=== PATIENT | male | born 1945 | race Caucasian/White ===

== ENCOUNTER → 2017-11-25 | Outpatient (CLI) | payer MEDICARE, OTHER ==
[2017-11-25 10:29] LABS: HCT 43.6 % (39.0-53.0); HGB 13.6 gm/dL (13.0-17.5); MCH 30.3 pg (25.0-35.0); MCHC 31.1 g/dL (31.0-37.0); MCV 97.5 fL (80.0-100.0); Mean Platelet Volume 6.9; Platelet Count 235 k/uL (150-450); RBC 4.48 m/uL (4.30-5.90); RDW 14.8 % (11.5-15.5); WBC 7.3 k/uL (3.8-10.6)
[2017-11-25 10:42] LABS: Appearance,Urine Clear (Clear); Bilirubin,Urine Negative (Negative); Blood,Urine Negative (Negative); Color,Urine Yellow; Glucose,Urine (UA) Negative (Negative); Ketones,Urine Negative (Negative); Leukocyte Esterase,Urine Negative (Negative); Nitrite,Urine Negative (Negative); PH, Urine 6.5 (5.0-8.0); Protein,Urine Negative (Negative); Specific Gravity,Urine 1.008 (1.001-1.035); Urobilinogen,Urine <2.0 mg/dL (<2.0)
[2017-11-25 10:44] LABS: INR 1.1 (<1.2); Partial Thromboplastin Time 23.7 sec (22.0-30.0); Prothrombin Time 10.6 sec (9.0-12.0)
[2017-11-25 10:49] LABS: ALT 37 U/L (21-72); AST 26 U/L (17-59); Albumin 4.5 g/dL (3.5-5.0); Alkaline Phosphatase 81 U/L (38-126); Anion Gap 10 mmol/L; Blood Urea Nitrogen 17 mg/dL (9-20); Calcium 9.8 mg/dL (8.4-10.2); Carbon Dioxide 27 mmol/L (22-30); Chloride 101 mmol/L (98-107); Glucose 91 mg/dL (74-99); Potassium 4.9 mmol/L (3.5-5.1); Sodium 138 mmol/L (137-145); Total Bilirubin 0.5 mg/dL (0.2-1.3); Total Protein 7.2 g/dL (6.3-8.2)
== END | disposition home or self-care (01) ==
LOC: LABPAT 09:45
PROVIDERS: ATTEND Orthopaedic Surgery
DX: Z01.812 Encounter for preprocedural laboratory examination (principal)
CPT/HCPCS: 36415; 80053; 81003; 85027; 85610; 85730; 87070

== ENCOUNTER 2017-12-16 06:12 | Inpatient (IN) | payer MEDICARE, OTHER ==
[2017-12-10 12:35] VITALS: BMI 27.9
[~2017-12-16 06:12] MED LIST: ACETAMINOPHEN TAB 500 MG TAB PO ONE; DEXAMETHASONE SOD PHOSPHATE 10 MG/ML 1 ML VIAL IV ONE; HYDROmorphone 0.5 MG/0.5 ML SYRINGE IVP PRN; LACTATED RINGERS 1,000 ML IV SCH; LIDOCAINE 1% 20 ML VIAL (10MG/ML) FOR IV START INTRADERMA PRN; MELOXICAM 7.5 MG TAB PO ONE; MIDAZOLAM 2 MG/2 ML VIAL IV PRN; ONDANSETRON 4 MG/2 ML VIAL IVP ONE; SCOPOLAMINE 1.5MG/72HR PATCH TRANSDERM ONE; TRANEXAMIC ACID 1,000 MG in SODIUM CHLORIDE 0.9% 50 ML IVPB ONE; ceFAZolin 2 GM in SODIUM CHLORIDE 0.9% 100 ML IVPB ONE; ceFAZolin IN SWFI 2 GM/20 ML SYRINGE IVP ONE
[2017-12-16] MEDS ORDERED: ROPIVACAINE 246.25 MG, EPINEPHrine 0.5 MG, KETOROLAC 30 MG, cloNIDine HCL/PF 80 MCG, WA... MISCELLANE ONE ×5 (06:24)
[2017-12-16] MEDS ORDERED: TRANEXAMIC ACID 1,000 MG/10 ML VIAL ONE (07:22)
[2017-12-16] MEDS ORDERED: diphenhydrAMINE 50 MG/ML 1 ML VIAL ONE (07:22)
[2017-12-16] MEDS ORDERED: ceFAZolin 1,000 MG in SODIUM CHLORIDE 0.9% 1,000 ML IRRIGATION ONE ×4 (07:22)
[2017-12-16] MEDS ORDERED: fentaNYL (PF) 50 MCG/ML 2 ML AMP ONE (07:22)
[2017-12-16] MEDS ORDERED: SODIUM CHLORIDE 0.9% 100 ML BAG ONE (07:22)
[2017-12-16] MEDS ORDERED: MIDAZOLAM 2 MG/2 ML VIAL ONE (07:22)
[2017-12-16] MEDS ORDERED: ROPIVACAINE 1,100 MG, SODIUM CHLORIDE 0.9% 330 ML MISCELLANE PRN ×2 (08:00)
--- NOTE | 2017-12-16 08:02 | P.ONQ ---
Anesthesiology Proc Note - PNB - Peripheral Nerve Block Performed Left Adductor Canal Indication: Acute Post-Operative Pain, Requested by physician (Dr Salvador Gonzalez ) Sedation Type: Sedate with meaningful contact maintained Preparation: Sterile Dressing Position: Supine Catheter: Indwelling Needle Types: Other (see comment) (Renee) Needle Size: 100mm (4") Needle Gauge: 18 Technique: Ultrasound Injectate: 0.5% Ropivacaine (see comment for volume) (20cc) Blood Aspirated: No Pain Paresthesia on Injection Noted: No Resistance on Injection: Normal Events: Uneventful and Well Tolerated
[2017-12-16] MEDS ORDERED: LACTATED RINGERS 1,000 ML IV ONE (08:20)
--- NOTE | 2017-12-16 08:57 | P.OP ---
Date of Procedure: 12/16/17 Preoperative Diagnosis: Severe osteoarthritis left knee Postoperative Diagnosis: Severe osteoarthritis left knee Procedure(s) Performed: Left total knee arthroplasty Implants: Miller and Nephew Oxinium femoral component size 6, left Miller & Nephew Sarita II left nonporous tibial baseplate size 7 Miller & Nephew size 11 mm Legion XLPE dished articular insert, size 7-8 Miller & Nephew Sarita II resurfacing patellar component, 35 mm All components were cemented using Shital bone cement.. The articulation is Oxinium on polyethylene. Anesthesia: spinal Surgeon: Salvador Gonzalez Vice President Sales #1: Cynthia Tijerina Estimated Blood Loss (ml): 50 Pathology: other (Bone and cartilage) Condition: stable Disposition: PACU Indications for Procedure: After failure of conservative treatment we discussed the surgical and nonsurgical treatment options at length. Patient wishes to proceed with a total knee arthroplasty. Complications specific to this procedure were discussed at length, including but not limited to infection, bleeding, stiffness , and nerve injury. Patient is aware of all these complications and informed consent was obtained Operative Findings: The operative findings are consistent with severe osteoarthritis of the left knee Description of Procedure: Patient was seen in the preoperative area consent was reviewed and operative site was marked with a skin marker. An adductor canal pain catheter was placed by anesthesia in the preoperative area. Patient was then brought to the operating room and given preoperative antibiotics intravenously. A spinal anesthetic was administered by the anesthesia department. A tourniquet was placed on the upper thigh and the lower extremity was prepped and draped in usual sterile fashion. A gram of transexamic acid was given. A universal timeout was then performed which confirmed the patient's name, surgical site, ALLERGIES, and consent. The lower extremity was then exsanguinated and tourniquet was inflated to 250 mmHg. A standard and anterior midline approach to the knee was performed. The skin and subcutaneous tissue was dissected down to the patellar tendon. A medial parapatellar arthrotomy was then performed. The knee was then extended, the patellar was everted, and the knee was again flexed. Anterior horns of both menisci were excised, and a release was performed to the posterior medial aspect of the knee. On gross visual inspection, there was complete loss of articular cartilage in the medial and patellofemoral joint spaces. There was also significant cartilage damage in the lateral compartment. There were multiple periarticular osteophytes which were then removed with a Ronguer. The femoral canal was then opened with the appropriate drill, and the intramedullary femoral cutting guide was then placed and set for 4 of valgus. The distal femoral cutting block was then pinned in place, and the distal femur was then cut. The cutting block was then removed and the cut was checked for flatness. Next, the sizing guide was then placed and set for 3 external rotation based off of the epicondylar axis and Whitesides line. After the femur was sized, the appropriate 4-in-1 cutting block was then pinned in place. The anterior condyles were cut without notching. The posterior and chamfer cuts were performed while protecting the collateral ligaments. The cutting block was then removed, and the femoral canal was plugged with autologous bone. Attention was then directed to the tibia. The remaining ACL was removed with a Ronguer, and the tibia was then gently subluxed forward with a large bent knee retractor. Any remaining menisci was excised. The posterior lateral corner was cauterized in order to cauterize the lateral geniculate artery. The extra medullary tibial cutting guide was then placed, set for the appropriate rotation , slope, and depth of resection. The proximal tibia cutting guide was then pinned in place. Proximal tibia was then cut and sized. Next trials were then placed with the appropriate-sized insert. The knee was able to fully extend and flex to 130 and was stable throughout all range of motion. The knee was then extended, patella everted. Patella was then measured, and then using an osteotomy guide, the patella was cut at the appropriate level. The patella was then measured and drilled and the patella trial was then placed. The knee was then taken through range of motion with the patella trial and the patella tracked normally. The knee was then extended patella trial was then removed and the patella was everted. Knee was then flexed and lug holes were drilled through the femoral trial and the femoral trial was then removed. The tibial was then exposed, and the tibial broach guide was then pinned in place after it was set for the appropriate rotation to allow for the most coverage without overhang. The tibia was then reamed and broached. The cut surfaces of bone were then irrigated with pulsatile lavage. The posterior structures were injected with the ropivacaine solution. The knee was also irrigated with Irrisept solution. The components were then opened, the cement was mixed, and the components were then cemented in place. The cement was allowed to harden with the knee in full extension. While the cement was hardening, the remaining soft tissues were then injected with a ropivacaine solution, which consisted of 246.25 mg of ropivacaine, 0.5 mg of epinephrine, 30 mg of Toradol, 80 g of clonidine, and 48.45 mL of sterile water, for a total of 100 mL of fluid injected. After the cemented hardened. The tourniquet was released, and hemostasis was obtained. A second gram of transexamic acid was given. The knee was again irrigated. The knee was again taken through range of motion and found to be stable throughout all range of motion of 0-130 , and the patella tracked normally. The fascia was then closed with #2 strata fix suture. The subcutaneous tissue was closed with 3-0 Vicryl and 3-0 strata fix. Dermabond glue was used for the skin and placed with the knee in flexion. The patient was placed in a sterile silver dressing. Patient was then transferred to recovery room in stable condition. The department assistant REEMA Mullins was required due the complexity surgery and the need for a skilled surgical endoscopist. She assisted in positioning, draping, retraction, and closure of the wound.
[2017-12-16] MEDS ORDERED: NALOXONE 0.4 MG/ML 1 ML VIAL IV PRN (09:17)
[2017-12-16] MEDS ORDERED: hydrOXYzine PAMOATE 25 MG CAP PO PRN (09:17)
[2017-12-16] MEDS ORDERED: DIAZEPAM 5 MG TAB PO PRN ×2 (09:17)
[2017-12-16] MEDS ORDERED: BISACODYL 10 MG SUPP RECTAL PRN (09:17)
[2017-12-16] MEDS ORDERED: MAGNESIUM HYDROXIDE 2,400 MG/10 ML CUP PO PRN (09:17)
[2017-12-16] MEDS ORDERED: HYDROmorphone 2 MG/ML 1 ML SYRINGE IVP PRN ×4 (09:17)
[2017-12-16] MEDS ORDERED: NA PHOS,M-B/NA PHOS,DI-BA 133 ML ENEMA RECTAL PRN (09:17)
[2017-12-16] MEDS ORDERED: ONDANSETRON 4 MG/2 ML VIAL IVP PRN (09:17)
[2017-12-16] MEDS ORDERED: HYDROcodone/APAP 5-325MG 1 EACH TAB PO PRN (09:17)
--- NOTE | 2017-12-16 10:15 | XR ---
EXAMINATION TYPE: XR knee limited LT DATE OF EXAM: 12/16/2017 CLINICAL HISTORY: Left knee pain and arthritis status post total knee replacement. TECHNIQUE: Portable AP and crosstable lateral views of the left knee are obtained immediately postop eratively. COMPARISON: None FINDINGS: Metallic hardware from total left knee arthroplasty is seen and appears satisfactory in al ignment and position. There is evidence of recent surgery with diffuse subcutaneous gas and soft tis kitty swelling noted. IMPRESSION: METALLIC HARDWARE FROM TOTAL LEFT KNEE ARTHROPLASTY IS SATISFACTORY IN ALIGNMENT.
[2017-12-16] MEDS: ceFAZolin IN SWFI 2 GM/20 ML SYRINGE IVP SCH ×2 (15:14→23:19)
[2017-12-16] MEDS: SODIUM CHLORIDE 0.9% 1,000 ML IV SCH ×2 (15:47→16:44)
[2017-12-16] MEDS: HYDROcodone/APAP 5-325MG 1 EACH TAB PO PRN ×2 (17:01→23:18)
[2017-12-16] MEDS ORDERED: SENNOSIDES-DOCUSATE SODIUM 1 EACH TAB PO SCH (21:00)
[2017-12-16] MEDS: ASPIRIN 325 MG TAB PO SCH (23:18)
--- NOTE | 2017-12-17 06:24 | CONS ---
CONSULTATION REASON FOR CONSULTATION: Advice regarding hypertension and multiple other medical issues requested by Dr. Gonzalez. HISTORY OF PRESENT ILLNESS: This 72-year-old gentleman with the past medical history of multiple medical issues such as history of hypertension, hyperlipidemia, history of DJD, rheumatoid arthritis being followed by Dr. Inman in the outpatient setting underwent left total knee arthroplasty by Dr. Gonzalez. The patient tolerated the procedure well. There is no history of chest pain. No history of palpitations. No history of headache, loss of consciousness, nausea, vomiting, diarrhea, fever, rigors or chills at this time. PAST MEDICAL HISTORY: History of hypertension, hyperlipidemia, history of DJD, history rheumatoid arthritis, hearing defects. MEDICATIONS: Medications prior to admission include home medications are: 1. Dugger-3 fatty acids 1 p.o. daily. 2. Methotrexate 3 tablets p.o. Saturday. 3. Cozaar 25 mg p.o. q.a.m. 4. Folic acid 1 mg daily. 5. Lipitor 40 mg p.o. daily. ALLERGIES: None. FAMILY HISTORY: No history of heart disease or strokes in the family. SOCIAL HISTORY: No history of smoking. No history of alcohol intake. REVIEW OF SYSTEMS: ENT: No diminished vision, diminished hearing. CARDIOVASCULAR: No angina. RESPIRATORY: As mentioned earlier. GI: As mentioned earlier. : No dysuria. NERVOUS SYSTEM: No numbness or weakness. ALLERGY/IMMUNOLOGY: No history of asthma. MUSCULOSKELETAL: As mentioned earlier. HEMATOLOGY/ONCOLOGY: No history of anemia. ENDOCRINE: No history of diabetes or hypothyroidism. CONSTITUTIONAL: As mentioned earlier. DERMATOLOGY: Negative. RHEUMATOLOGY: As mentioned earlier. PSYCHIATRY: As mentioned earlier. PHYSICAL EXAMINATION: The patient is alert and oriented x3. Pulse is 56, blood pressure 111/64, respirations 16, temperature 97 degrees, pulse ox 96% on room. HEENT: Conjunctivae normal. Oral mucosa moist. Neck is no jugular venous distention. No carotid bruit. No lymph node enlargement. CARDIOVASCULAR: S1 and S2 muffled. RESPIRATORY: Diminished breath sounds at the bases. No rhonchi, no crackles. ABDOMEN: Soft, nontender. No mass palpable. LEGS: Status post left total knee arthroplasty. NERVOUS SYSTEM: Higher function as mentioned earlier. Moves all 4 limbs. No focal motor or sensory deficits. LYMPHATICS: No lymphadenopathy of the neck, axillae or groin. SKIN: No ulcer, rash or bleeding. LABS: Labs are awaited at this time. The previous labs CBC, coags, chemistry, all within normal limit. LDL was 123. ASSESSMENT: 1. Status post left total knee arthroplasty. 2. Hypertension. 3. Hyperlipidemia. 4. History of degenerative joint disease. 5. History of rheumatoid arthritis. History of hearing defect. RECOMMENDATIONS AND DISCUSSION: In this 72-year-old gentleman who presented with multiple complex medical issues, will monitor the patient closely. Continue the current medication. Continue symptomatic treatment. I recommend to resume the home medications and also hold the methotrexate for now, could be restarted later. Otherwise I would also recommend DVT prophylaxis, incentive spirometry. Monitor blood pressure closely. We will follow the patient closely with you. Thank you Dr. Gonzalez for letting us participate in the care of this patient. MMODL / IJN: [id number] /
--- NOTE | 2017-12-17 06:53 | P.PN ---
Progress Note - Text Progress Note Date: 12/17/17 . Postoperative day # 1 status post total knee arthroplasty, under spinal anesthesia, and adductor canal catheter placed for postoperative analgesia, currently at ropivacaine 0.2% 8 mL per hour and continuous infusion, visual analogue scale is 2/10, patient using oral pain medication for breakthrough pain. Assessment and plan= Acute postoperative pain, adductor canal catheter for pain control, pain is well controlled we'll continue the same management.
[2017-12-17 07:38] LABS: Anion Gap 10 mmol/L; Blood Urea Nitrogen 17 mg/dL (9-20); Calcium 9.1 mg/dL (8.4-10.2); Carbon Dioxide 21 mmol/L (22-30); Chloride 104 mmol/L (98-107); Glucose 92 mg/dL (74-99); Potassium 4.4 mmol/L (3.5-5.1); Sodium 135 mmol/L (137-145)
[2017-12-17 07:58] LABS: Basophils % (A) 0 %; Eosinophils % (A) 0 %; HCT 35.4 % (39.0-53.0); HGB 11.6 gm/dL (13.0-17.5); Lymphocytes # (A) 1.5 k/uL (1.0-4.8); Lymphocytes % (A) 13 %; MCH 31.8 pg (25.0-35.0); MCHC 32.8 g/dL (31.0-37.0); Mean Platelet Volume 6.7; Monocytes # (A) 0.6 k/uL (0-1.0); Monocytes % (A) 5 %; Neutrophils # (A) 9.3 k/uL (1.3-7.7); Neutrophils % (A) 80 %; Platelet Count 175 k/uL (150-450); RBC 3.65 m/uL (4.30-5.90); RDW 12.9 % (11.5-15.5); WBC 11.6 k/uL (3.8-10.6)
[2017-12-17 08:05] VITALS: BP 129/76; PULSE 63; RESP 15; TEMP 98.4
[2017-12-17] MEDS: ASPIRIN 325 MG TAB PO SCH (08:28)
[2017-12-17] MEDS ORDERED: LOSARTAN 25 MG TAB PO SCH (09:00)
[2017-12-17] MEDS ORDERED: LISINOPRIL 10 MG TAB PO SCH (09:00)
[2017-12-17] MEDS ORDERED: MELOXICAM 7.5 MG TAB PO SCH (09:00)
[2017-12-17] MEDS ORDERED: ATORVASTATIN 40 MG TAB PO SCH (09:00)
[2017-12-17] MEDS: HYDROcodone/APAP 5-325MG 1 EACH TAB PO PRN (09:48)
--- NOTE | 2017-12-17 09:50 | P.DS ---
Providers Date of admission: 12/16/17 06:12 Expected date of discharge: 12/17/17 Attending physician: Salvador Gonzalez Consults: 12/16/17 09:17 Consult Physician Routine Consulting Provider: Freeman Ponce Consult Reason/Comments: medical management Do you want consulting provider notified?: Yes Primary care physician: Salvador Inman - Discharge Diagnosis(es) (1) Primary osteoarthritis of left knee Current Visit: Yes Status: Acute (2) S/P total knee arthroplasty Current Visit: Yes Status: Acute Hospital Course: This is a 72-year-old male with known history of degenerative arthritis of the left knee. The patient presents for evaluation. After discussion and consideration patient elects to proceed with total knee arthroplasty. The patient is seen preoperatively by Dr. Gonzalez and cleared for surgery. Patient is admitted to [facility] on 12/16/2017 for total knee arthroplasty. The procedures performed without complication or sequelae. The patient is doing well postoperatively. Labs and vital signs are stable on day of discharge. On day of discharge patient's knee incision is healing well. There is minimal erythema. There is no drainage noted at this time. There is minimal soft tissue swelling to the knee. Patient has full foot and ankle motion without difficulty or pain. Neurovascular status to the left lower extremity is intact. Patient is discharged home in good condition. Please see med rec for accurate list of home medications. Plan - Discharge Summary Discharge Rx Participant: No New Discharge Prescriptions: New Aspirin 325 mg PO BID #60 tab HYDROcodone/APAP 5-325MG [[place] 5-325] 1 - 2 tab PO Q4-6H PRN #90 tab PRN Reason: Pain Sennosides [Senokot] 1 tab PO BID #60 tablet No Action Folic Acid 1 mg PO DAILY Methotrexate Sodium [Methotrexate] 3 tab PO WE Atorvastatin [Lipitor] 40 mg PO DAILY [place]-3 Fatty Acids/Fish Oil [Fish Oil 1,000 mg Softgel] 1 cap PO DAILY Losartan [Cozaar] 25 mg PO QAM Discharge Medication List Folic Acid 1 mg PO DAILY 03/15/14 [History] Methotrexate Sodium [Methotrexate] 3 tab PO WE 03/15/14 [History] Atorvastatin [Lipitor] 40 mg PO DAILY 12/10/17 [History] Losartan [Cozaar] 25 mg PO QAM 12/10/17 [History] [place]-3 Fatty Acids/Fish Oil [Fish Oil 1,000 mg Softgel] 1 cap PO DAILY [History] Aspirin 325 mg PO BID #60 tab 12/17/17 [Rx] HYDROcodone/APAP 5-325MG [[place] 5-325] 1 - 2 tab PO Q4-6H PRN #90 tab 12/17/17 [ Rx] Sennosides [Senokot] 1 tab PO BID #60 tablet 12/17/17 [Rx] Follow up Appointment(s)/Referral(s): Salvador Gonzalez DO [Doctor of Osteopathic Medicine] - 2 Weeks Ambulatory/Diagnostic Orders: Continuous Passive Motion (CPM) Machine [DME.AMB1] Time Frame: 3 Weeks, Location : Determined By Patient Activity/Diet/Wound Care/Special Instructions: Weightbearing as tolerated with a walker CPM 5-6h daily Leave dressing intact. May be removed by home care nurse in 7 days, 12/23/2017. May shower with dressing on. [facility] with questions or concerns [phone] Discharge Disposition: HOME WITH HOME HEALTH SERVICES
[2017-12-17 10:39] LABS: Appearance,Urine Clear (Clear); Bilirubin,Urine Negative (Negative); Blood,Urine Negative (Negative); Color,Urine Yellow; Glucose,Urine (UA) Negative (Negative); Ketones,Urine Negative (Negative); Leukocyte Esterase,Urine Negative (Negative); Nitrite,Urine Negative (Negative); PH, Urine 5.5 (5.0-8.0); Protein,Urine Negative (Negative); Specific Gravity,Urine 1.015 (1.001-1.035); Urobilinogen,Urine <2.0 mg/dL (<2.0)
[2017-12-17 11:32] LABS: Anisocytosis (M) Present
[2017-12-17] MEDS ORDERED: FOLIC ACID 1 MG TAB PO SCH (12:00)
--- NOTE | 2017-12-17 13:30 | PN ---
PROGRESS NOTE DATE OF SERVICE: 12/17/2017 This 72-year-old gentleman who was admitted after left total knee arthroplasty, improving significantly. No chest pain. No palpitations. No fever. PHYSICAL EXAM: On exam, alert and oriented x3. The pulse 63, blood pressure 129/76, respiration 15, temperature 98.4, pulse ox 95% on room air. HEENT: Conjunctivae normal. NECK: No jugular venous distention. CARDIOVASCULAR: S1 and S2 muffled. RESPIRATORY: Breath sounds diminished at the bases. A few scattered rhonchi and crackles. Abdomen is soft, nontender. LEGS: Status post surgery. NERVOUS SYSTEM: No focal deficits. LABS: WBC 11.6, hemoglobin 11.6. sodium 135. ASSESSMENT: 1. Status post left total knee arthroplasty. 2. Hypertension. 3. Hyperlipidemia. 4. History of degenerative joint disease. 5. History of rheumatoid arthritis. 6. Hearing defect. RECOMMENDATIONS AND DISCUSSION: Recommend to continue current medications, continue symptomatic treatment. Otherwise at this time monitor the patient closely. Otherwise resume the home medications. Closely follow with the primary physician in the outpatient setting. MMODL / IJN: [id number] /
== END 2017-12-17 13:20 | disposition home health service (06) | DRG 470 ==
LOC: 2ORMAIN 06:12 → 3SUR 09:10
PROVIDERS: ADMIT Orthopaedic Surgery; ATTEND Orthopaedic Surgery
PROC: 0SRD069 Replacement of Left Knee Joint with Oxidized Zirconium on Polyethylene Synthetic Substitute, Cemented, Open Approach (ICD-10-PCS; principal; 2017-12-16 07:30)
DX: M17.12 Unilateral primary osteoarthritis, left knee (principal); G62.9 Polyneuropathy, unspecified; M06.9 Rheumatoid arthritis, unspecified; G89.18 Other acute postprocedural pain; E78.2 Mixed hyperlipidemia; H91.90 Unspecified hearing loss, unspecified ear; I10 Essential (primary) hypertension; Z79.899 Other long term (current) drug therapy
CPT/HCPCS: 80048; 81003; 85025; 88300

== ENCOUNTER 2024-09-21 10:02 | Day surgery (SDC) | payer MEDICARE, BC ==
[2024-09-18 08:44] VITALS: BMI 29.0
[~2024-09-21 10:02] MED LIST changes: -ACETAMINOPHEN TAB 500 MG TAB PO ONE; +ALPRAZolam 0.25 MG TAB PO PRN; +ALPRAZolam 0.5 MG TAB PO PRN; +ATORVASTATIN 80 MG TAB PO STA; -DEXAMETHASONE SOD PHOSPHATE 10 MG/ML 1 ML VIAL IV ONE; +HEPARIN SODIUM,PORCINE (1 ML) 2,500 UNIT in SODIUM CHLORIDE 0.9% 250 ML IRRIGATION PRN; +HEPARIN SODIUM,PORCINE 10,000 UNIT in SODIUM CHLORIDE 0.9% 1,000 ML IRRIGATION PRN; -HYDROmorphone 0.5 MG/0.5 ML SYRINGE IVP PRN; -LACTATED RINGERS 1,000 ML IV SCH; -LIDOCAINE 1% 20 ML VIAL (10MG/ML) FOR IV START INTRADERMA PRN; -MELOXICAM 7.5 MG TAB PO ONE; -MIDAZOLAM 2 MG/2 ML VIAL IV PRN; +NITROGLYCERIN SL TABS 0.4 MG TAB SUBLINGUAL PRN; -ONDANSETRON 4 MG/2 ML VIAL IVP ONE; -SCOPOLAMINE 1.5MG/72HR PATCH TRANSDERM ONE; -TRANEXAMIC ACID 1,000 MG in SODIUM CHLORIDE 0.9% 50 ML IVPB ONE; -ceFAZolin 2 GM in SODIUM CHLORIDE 0.9% 100 ML IVPB ONE; -ceFAZolin IN SWFI 2 GM/20 ML SYRINGE IVP ONE
[2024-09-21 10:37] VITALS: RESP 16; TEMP 98.5
[2024-09-21] MEDS: SODIUM CHLORIDE 0.9% 1,000 ML IV ONE (10:37)
[2024-09-21] MEDS: SODIUM CHLORIDE 0.9% 1,000 ML in EMPTY BAG 1 BAG IV SCH (10:38)
[2024-09-21 11:09] LABS: Basophils % (A) 0 %; Eosinophils # (A) 0.1 k/uL (0-0.7); Eosinophils % (A) 1 %; HCT 40.7 % (39.0-53.0); HGB 13.6 gm/dL (13.0-17.5); Lymphocytes # (A) 5.3 k/uL (1.0-4.8); Lymphocytes % (A) 45 %; MCH 30.6 pg (25.0-35.0); MCHC 33.4 g/dL (31.0-37.0); MCV 91.6 fL (80.0-100.0); Mean Platelet Volume 8.9; Monocytes # (A) 0.4 k/uL (0-1.0); Monocytes % (A) 4 %; Neutrophils # (A) 5.4 k/uL (1.3-7.7); Neutrophils % (A) 46 %; Platelet Count 327 k/uL (150-450); RBC 4.44 m/uL (4.30-5.90); RDW 13.9 % (11.5-15.5); WBC 11.7 k/uL (3.8-10.6)
[2024-09-21] MEDS: ASPIRIN 325 MG TAB PO STA (11:21)
[2024-09-21 11:30] LABS: RBC Morphology Normal
[2024-09-21 11:33] LABS: African American GFR (CKD) 89 (>60 ml/min/1.73 sqM); Anion Gap 7 mmol/L; Blood Urea Nitrogen 19 mg/dL (9-20); Calcium 8.8 mg/dL (8.4-10.2); Carbon Dioxide 25 mmol/L (22-30); Chloride 99 mmol/L (98-107); Glucose 93 mg/dL (74-99); Non-African American GFR(CKD) 77 (>60 ml/min/1.73 sqM); Potassium 4.3 mmol/L (3.5-5.1); Sodium 131 mmol/L (137-145)
[2024-09-21] MEDS: HEPARIN SODIUM,PORCINE 10,000 UNIT in SODIUM CHLORIDE 0.9% 1,000 ML IRRIGATION ONE (12:40)
[2024-09-21] MEDS: HEPARIN SODIUM,PORCINE (1 ML) 2,500 UNIT in SODIUM CHLORIDE 0.9% 250 ML IRRIGATION ONE (12:40)
[2024-09-21] MEDS: MIDAZOLAM 2 MG/2 ML VIAL IVP ONE (12:51)
[2024-09-21] MEDS: fentaNYL (PF) 50 MCG/ML 2 ML AMP IVP ONE (12:52)
[2024-09-21] MEDS: LIDOCAINE 1% INJ 10MG/ML (20 ML MDV) SQ ONE (12:54)
[2024-09-21] MEDS: VERAPAMIL SYRINGE (5 MG/10 ML) INTRAARTER ONE (12:55)
[2024-09-21] MEDS: HEPARIN SODIUM 1,000 UN/ML (10ML VL) IVP ONE (12:58)
[2024-09-21] MEDS: IOPAMIDOL-370 100ML BTL INJ ONE ×2 (13:41→13:48)
[2024-09-21] MEDS ORDERED: RX INFO: IV CONTRAST WAS GIVEN 1 EACH MISC MISCELLANE PRN (14:33)
[2024-09-21] MEDS ORDERED: SODIUM CHLORIDE 0.9% 1,000 ML IV SCH (14:45)
--- NOTE | 2024-09-21 14:51 | P.CARDCATH ---
Date of Procedure: 09/21/24 Description of Procedure: DIAGNOSTIC CORONARY ANGIOGRAPHY and LEFT HEART CATH REPORT PROCEDURES PERFORMED: Right radial access Left heart catheterization Selective coronary angiography Moderate conscious sedation 55 mins Right common femoral access Right common femoral arteriogram Angioseal Closure INDICATION: Abnormal stress echocardiogram HPI 79-year-old male presented to cardiology office because of symptoms of substernal chest pressure and exertional shortness of breath. He was also getting evaluated for perioperative cardiac assessment for a he wanted hernia surgery. He has history of rheumatoid arthritis on methotrexate and folic acid. He had a echocardiogram stress test done. He walked for 4 METS, got short of breath and also reported mild substernal chest pressure. He had an abnormal echocardiographic response with stress-induced regional wall motion abnormality involving anteroapical segments. For this he was scheduled for heart catheterization procedure. CONSENT: I have discussed the risks, benefits and alternative therapies for the above-mentioned procedure, sedation/analgesia and necessary blood product administration (if indicated, as they pertain to this patient). The patient has indicated understanding and acceptance of the risks and procedures discussed. Conscious Sedation: Patient's ECG, heart rate, blood pressure, pulse oximetry was monitored throughout the duration of procedure under the direct supervision. 2 mg Versed and 50 mg Fentanyl were used for induction of moderate conscious sedation. Total duration of 55 minutes. Procedural steps Right radial access was obtained via a palpation method. We will modify Seldinger technique, 6 Kyrgyz slender glide sheath was advanced in the radial artery. J wire was advanced to the radial artery to do the aortic root. It was noted that there is significant tortuosity in the right subclavian artery before it joins the aortic arch. 6000 units of IV heparin was administered. Over the J-wire 5 Kyrgyz JR4 catheter was advanced. With the catheter in place the wire was manipulated to cross the aortic valve to enter the left ventricle. Over the wire catheter was advanced to enter the left ventricle into fluoroscopy. Wire was removed catheter was placed. Left ventricular pressures were obtained. Pullback was performed across aortic valve under fluoroscopy. The catheter was manipulated multiple times but could not engage the right coronary ostium. This catheter was exchanged for a 5 Kyrgyz JL 4 diagnostic catheter. This catheter was manipulated to selectively engage the left coronary ostium. Left coronary angiogram was performed due to potential to projections. This catheter was exchanged for a 5 Kyr[place]z Tello catheter over the wire. The catheter was advanced into the aortic root but could not engage the right coronary ostium because of significant tortuosity in subclavian artery and inability to manipulate. This catheter got kinked in the right radial artery. The kink was resolved with the help of the wire and the catheter was removed. Right radial angiogram was performed which showed small contained dissection with good antegrade flow. Radial pressures and the radial sheath were corresponding to the aortic pressures. Decision was made to proceed with right common femoral access. Using ultrasound guidance right common femoral artery was identified bifurcation was identified. Using modified Seldinger technique and under ultrasound guidance, right common femoral access was obtained using a micropuncture needle. This micropuncture needle was exchanged with the wire for a micro sheath. This microsheath was exchanged for a 6 Kyrgyz slender glide sheath. Once the sheath was secured in place right common femoral angiogram was performed which showed significant tortuosity in the external iliac artery. Due to this we decided to exchange the short 6 Kyrgyz slender glide sheath for a long 23 mm 6 Kyrgyz sheath. This sheath was secured and flushed. Over the wire JR4 5 Kyrgyz diagnostic catheter was explants and attempted to selectively engage the right coronary ostium. It could not engage the right coronary ostium. This was exchanged for a AR-2 6 Kyrgyz diagnostic catheter. This catheter was manipulated to selectively engage the right coronary ostium. Right coronary artery has a high anterior takeoff. Coronary angiogram was performed in different angiographic projections. 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 Catheters used: 5 Kyrgyz JL4 for left coronary artery, AR-2 6 Kyrgyz 4 right coronary artery Blood loss minimal, Angioseal closure device was used to close the arteriotomy site. Appropriate patent hemostasis was achieved. The patient tolerated the procedure well. Patient was transported back to the post catheterization holding area in stable condition. Angiographic images were reviewed in detail. HEMODYNAMICS: Aortic Pressure: 120/70 mmHg. LV pressure: 120/10 mmHg. LVEDP 16 mmHg. SELECTIVE CORONARY ARTERIOGRAPHY: LEFT MAIN: Left main is short and angiographically patent. It bifurcates into LAD and LCx. LEFT ANTERIOR DESCENDING CORONARY ARTERY: LAD is a large caliber vessel which wraps around to the apex. Diffusely calcified. Proximal LCx has a 5 mm aneurysm at the bifurcation site of septal branch. There is a 90% perianeurysmal stenosis. Proximal LAD gives a medium size diagonal branch which has 80% disease in proximal segment. Mid LAD has 80% calcific stenosis just after giving diagonal 2 branch. Diagonal 2 branch is medium caliber and has 50 to 70% ostial and proximal segment disease. Distal LAD has 80% stenosis. EMMETT-3 flow LEFT CIRCUMFLEX CORONARY ARTERY: It is nondominant vessel. Medium caliber. Proximal LCx has 80 to 90% diffusely calcific stenosis. Mid LCx has mild calcific luminal irregularities. It is otherwise patent. EMMETT-3 flow. RIGHT CORONARY ARTERY: Dominant vessel. Moderate caliber vessel. Proximal RCA has diffusely calcific 80% stenosis. Mid RCA has 50% calcific disease. Distal RCA has mild calcific luminal diabetes. He presents to PDA branch which is otherwise patent. Small PL branch. 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 Family was updated about the plan. They agreed to proceed with CT surgery consultation IV fluids at 125 cc for 4 hours Routine postcardiac cath care after radial and femoral access. Discharge home in 6 hours Follow-up in the office in 1 weeks. Performing Physician Salvador Blue MD [facility] [place]
--- NOTE | 2024-09-21 15:57 | P.GSCN ---
History of Present Illness Consult date: 09/21/24 Reason for Consult: Multivessel coronary artery disease Requesting physician: Salvador Blue History of present illness: This is an 79-year-old gentleman who follows on an outpatient basis with Dr. Salvador Inman he has a past medical history significant for for his primary care and with Dr. Blue for his cardiology care. He has a past medical history significant for hypertension, dyslipidemia, osteoarthritis, hard of hearing and a remote history of nicotine dependence quit smoking 30 years ago. Recently, the patient has had complaints of dyspnea on exertion associated with some diaphoresis which goes away with rest. Due to these complaints of dyspnea the patient underwent a stress test which was abnormal, with the stress test showing apical and anteroapical stress-induced wall motion abnormality. The patient denies any recent complaints of fever, chills, nausea, vomiting, constipation, diarrhea, headache, chest pressure, chest pain, hematemesis, hemoptysis, presyncope or syncope. The patient also underwent a transthoracic 2D echocardiogram completed on September 02, 2024 which showed a normal left ve ntricular size with normal function, an ejection fraction of 55%, small hypokinetic area of the inferoseptal wall at the base, mild mitral valve regurgitation directed centrally, trace tricuspid valve regurgitation and trace pulmonic valve regurgitation. It also demonstrated the aortic root to be e nlarged and the ascending aorta to be enlarged. The patient was recommended to undergo a cardiac catheterization due to the abnormal stress test which was completed today September 21, 2024. The cardiac catheterization revealed severe calcified three-vessel disease with a 90% proximal left anterior descending coronary artery disease with a 5 mm aneurysm, and 80 to 90% proximal left circumflex calcific stenosis and an 80% proximal right coronary artery calcific stenosis. Due to the findings on the cardiac catheterization a consult was placed to Dr. Camron Pritchett from cardiothoracic surgery for further evaluation and treatment recommendations including myocardial vascularization surgery. Review of Systems A review of systems was completed and was negative except as mentioned in the HPI Past Medical History Past Medical History: GERD/Reflux, Hearing Disorder / Deafness, Hyperlipidemia, Hypertension, Rheumatoid Arthritis (RA) Additional Past Medical History / Comment(s): Dr. Blue H+P on chart. Per [id number] Montes,"A couple issues of chest discomfort, dizzy, nausea and broke out into a sweat." "Off and on for three years but this time was worse." History of Any Multi-Drug Resistant Organisms: None Reported Past Surgical History: Orthopedic Surgery Additional Past Surgical History / Comment(s): right shoulder rotator cuff, nura hand sx, tlk. bi lat cataract surgery. Left knee replacement Past Anesthesia/Blood Transfusion Reactions: No Reported Reaction Additional Past Anesthesia/Blood Transfusion Reaction / Comm: No hx of blood transfusion to date. Past Psychological History: No Psychological Hx Reported Smoking Status: Former smoker (Quit smoking over 30 years ago) Past Alcohol Use History: None Reported Past Drug Use History: None Reported - Past Family History Father Family Medical History: Hypertension Mother Family Medical History: Hypertension Medications and Allergies Home Medications Medication Instructions Recorded Confirmed Type Folic Acid 1 mg PO QAM 03/15/14 09/21/24 History metHOTREXate sodium [Methotrexate] 3 tab PO WE 03/15/14 09/21/24 History Atorvastatin [Lipitor] 40 mg PO QAM 12/10/17 09/21/24 History Losartan [Cozaar] 25 mg PO QAM 12/10/17 09/21/24 History Aspirin 81 mg PO QAM 09/18/24 09/21/24 History Metoprolol Succinate [Metoprolol 25 mg PO DAILY 30 Days #30 tab 09/21/24 Rx Succinate ER] Allergies Allergy/AdvReac Type Severity Reaction Status Date / Time No Known Allergies Allergy Verified 09/18/24 08:29 Surgical - Exam Vital Signs Temp Pulse Resp BP Pulse Ox 98.5 F 83 16 194/103 98 09/21/24 10:34 09/21/24 10:34 09/21/24 10:34 09/21/24 10:34 09/21/24 10:34 - General well developed, well nourished, no distress, no pain - Eyes PERRL, normal ocular movement, no pale, no icteric - ENT normal pinna, normal nares, normal mucosa, no congestion, decreased hearing - Neck Neck is supple, no lymphadenopathy. no masses, no bruits, trachea midline, no venous distension - Respiratory Lungs essentially clear throughout. No wheezes, rhonchi or crackles. Respirations are symmetrical and nonlabored. - Cardiovascular Regular rhythm and rate. S1 and S2 present, negative for S3, gallop or murmur. Peripheral pulses palpable. - Abdomen Abdomen is soft, nontender and nondistended. Active bowel sounds present all 4 abdominal quadrants. No guarding or rigidity. No organomegaly appreciated. - Genitourinary Deferred - Rectum Deferred - Integumentary Skin is warm and dry. No clubbing or cyanosis is present. no rash, no growths, no abnormal pigmentation - Neurologic No focal deficits. normal coordination, normal sensation - Musculoskeletal Moves all 4 extremities with equal strength bilateral. - Psychiatric oriented to time, oriented to person, oriented to place, speech is normal, memory intact Results - Labs 09/21/24 10:34 09/21/24 11:07 Abnormal Lab Results - Last 24 Hours (Table) 09/21/24 09/21/24 Range/Units 10:34 11:07 WBC 11.7 H (3.8-10.6) k/uL Lymphocytes # 5.3 H (1.0-4.8) k/uL Sodium 131 L (137-145) mmol/L Diabetes panel 09/21/24 Range/Units 11:07 Sodium 131 L (137-145) mmol/L Potassium 4.3 (3.5-5.1) mmol/L Chloride 99 (98-107) mmol/L Carbon Dioxide 25 (22-30) mmol/L BUN 19 (9-20) mg/dL Creatinine 0.93 (0.66-1.25) mg/dL Glucose 93 (74-99) mg/dL Calcium 8.8 (8.4-10.2) mg/dL Calcium panel 09/21/24 Range/Units 11:07 Calcium 8.8 (8.4-10.2) mg/dL Pituitary panel 09/21/24 Range/Units 11:07 Sodium 131 L (137-145) mmol/L Potassium 4.3 (3.5-5.1) mmol/L Chloride 99 (98-107) mmol/L Carbon Dioxide 25 (22-30) mmol/L BUN 19 (9-20) mg/dL Creatinine 0.93 (0.66-1.25) mg/dL Glucose 93 (74-99) mg/dL Calcium 8.8 (8.4-10.2) mg/dL Adrenal panel 09/21/24 Range/Units 11:07 Sodium 131 L (137-145) mmol/L Potassium 4.3 (3.5-5.1) mmol/L Chloride 99 (98-107) mmol/L Carbon Dioxide 25 (22-30) mmol/L BUN 19 (9-20) mg/dL Creatinine 0.93 (0.66-1.25) mg/dL Glucose 93 (74-99) mg/dL Calcium 8.8 (8.4-10.2) mg/dL - Imaging Additional studies: Cardiac catheterization results reviewed. Assessment and Plan Assessment: Multivessel coronary artery disease Hypertension Dyslipidemia Hard of hearing Osteoarthritis Remote history of nicotine dependence quit smoking 30 years ago Plan: The patient was seen and examined in the extended stay unit, his daughters and significant other present at his bedside. His chart and diagnostics reviewed. His case was discussed in detail with Dr. Camron Pritchett from cardiothoracic surgery. The usual course of myocardial vascularization surgery was discussed with the patient and family present at his bedside. Questions were answered. Preoperative teaching and preoperative testing has been initiated. He will be scheduled to see Dr. Pritchett in the office on September 24, 2024 at 2 PM for further discussion regarding treatment options. A clinical frailty score was calculated which equaled 2. Once the patient's preoperative testing has been completed an STS risk or will be calculated and discussed with the patient. Once the patient is able to ambulate a 5 m walk score will be completed with the patient. Continue to maximize medical management with aspirin, statin and beta-angie. Medical management other comorbidities per primary care and cardiology services. Thank you Dr. Blue for this consult and we look forward to working with you in the care of this patient. I have personally seen and examined the patient, performed the documentation and the assessment and plan as written. Number of minutes spent on the visit: 30. LISBETH Jackson
[2024-09-21 16:05] LABS: Appearance,Urine Clear (Clear); Bilirubin,Urine Negative (Negative); Blood,Urine Negative (Negative); Color,Urine Colorless; Glucose,Urine (UA) Negative (Negative); Ketones,Urine Negative (Negative); Leukocyte Esterase,Urine Negative (Negative); Nitrite,Urine Negative (Negative); PH, Urine 6.5 (5.0-8.0); Protein,Urine Negative (Negative); Specific Gravity,Urine 1.033 (1.001-1.035); Urobilinogen,Urine <2.0 mg/dL (<2.0)
[2024-09-21 17:22] VITALS: BP 157/86; PULSE 70
[2024-09-21 17:26] LABS: ALT 38 U/L (4-49); AST 34 U/L (17-59); African American GFR (CKD) >90 (>60 ml/min/1.73 sqM); Albumin 4.2 g/dL (3.5-5.0); Alkaline Phosphatase 87 U/L (38-126); Anion Gap 7 mmol/L; Blood Urea Nitrogen 17 mg/dL (9-20); Calcium 8.9 mg/dL (8.4-10.2); Carbon Dioxide 22 mmol/L (22-30); Chloride 103 mmol/L (98-107); Glucose 106 mg/dL (74-99); Non-African American GFR(CKD) 80 (>60 ml/min/1.73 sqM); Potassium 4.3 mmol/L (3.5-5.1); Sodium 132 mmol/L (137-145); Total Bilirubin 0.9 mg/dL (0.2-1.3); Total Protein 6.9 g/dL (6.3-8.2)
[2024-09-21 17:36] LABS: Partial Thromboplastin Time 27.8 sec (22.0-30.0); Prothrombin Time 11.2 sec (10.0-12.5)
[2024-09-22 03:21] LABS: Chol/HDL Ratio 3.45 Ratio; LDL Cholesterol,Calculated 89.1 mg/dL (0.0-131.0)
[2024-09-22 03:37] LABS: Hepatitis A Antibody IgM Nonreactive (Nonreactive); Hepatitis B Core IgM Nonreactive (Nonreactive); Hepatitis B Surface Antigen Nonreactive (Nonreactive); Hepatitis C IgG Antibody Nonreactive (Nonreactive)
--- NOTE | 2024-09-22 06:57 | XR ---
EXAMINATION TYPE: XR chest 2V DATE OF EXAM: 09/21/2024 5:48 PM COMPARISON: None CLINICAL INDICATION: Male, 79 years old with history of PreOp Cardiac Surgery; TECHNIQUE: XR chest 2V Frontal and lateral views of the chest. FINDINGS: Lungs/Pleura: There is no evidence of pleural effusion, focal consolidation, or pneumothorax. Pulmonary vascularity: Unremarkable. Heart/mediastinum: Cardiomediastinal silhouette is unremarkable. Musculoskeletal: No acute osseous pathology. Other findings: None IMPRESSION: No acute cardiopulmonary disease/process. [facility], Workstation: [id number], 09/22/2024 6:54 AM
--- NOTE | 2024-09-23 11:51 | US ---
EXAMINATION TYPE: US carotid duplex BILAT DATE OF EXAM: 09/21/2024 Exam done portable COMPARISON: NONE CLINICAL INDICATION: Male, 79 years old with history of Pre-Op Cardiac Surgery,Ankle Brachial Index ( KAYCEE) ; Additional History: .... TECHNIQUE: Grayscale, color Doppler and spectral Doppler evaluation of the bilateral carotid systems and vertebral arteries. Indirect Doppler criteria was utilized. FINDINGS: EXAM MEASUREMENTS: RIGHT: Peak Systolic Velocity (PSV) cm/sec ----- Right CCA: 95.0 ----- Right ICA: 92.9 ----- Right ECA: 81.0 ICA/CCA ratio: 1.0 RIGHT: End Diastole cm/sec ----- Right CCA: 18.3 ----- Right ICA: 21.4 ----- Right ECA: 0.0 LEFT: Peak Systolic Velocity (PSV) cm/sec ----- Left CCA: 85.4 ----- Left ICA: 82.4 ----- Left ECA: 86.7 ICA/CCA ratio: 1.0 LEFT: End Diastole cm/sec ----- Left CCA: 15.3 ----- Left ICA: 24.3 ----- Left ECA: 8.2 VERTEBRALS (direction of flow): Right Vertebral: Antegrade Left Vertebral: Antegrade Rhythm: Normal Color Doppler imaging shows patency with blood flow throughout the carotid artery. Spectral waveforms are within normal limits. IMPRESSION: 1. Bilateral atheromatous plaquing is noted. No significant flow-limiting stenosis based on velociti es. Criteria for Assigning % of Stenosis / Diameter reduction (Estimation based on the indirect measurements of the internal carotid artery velocities (ICA PSV). 1. Normal (no stenosis)=ICA PSV < 125 cm/s: ratio < 2.0: ICA EDV<40 cm/s. 2. Less than 50% stenosis=ICA PSV < 125 cm/s: ratio < 2.0: ICA EDV<40 cm/s. 3. 50 to 69% stenosis=ICA PSV of 125 to 230 cm/s: ration 2.0 ? 4.0: ICA EDV 40-100 cm/s. 4. Greater than 70% stenosis to near occlusion= ICA PSV > 230 cm/s: ratio > 4.0: ICA EDV > 100 cm/s. 5. Near occlusion= ICA PSV velocities may be low or undetectable: variable ratio and ICA EDV. 6. Total occlusion=unable to detect flow. [facility], , 09/23/2024 11:48 AM
== END 2024-09-21 17:56 | disposition home or self-care (01) ==
LOC: CATHCVL 10:02
PROVIDERS: ATTEND Student in an Organized Health Care Education/Training Program
DX: I25.10 Atherosclerotic heart disease of native coronary artery without angina pectoris (principal); M06.9 Rheumatoid arthritis, unspecified; E11.9 Type 2 diabetes mellitus without complications; I10 Essential (primary) hypertension; E78.5 Hyperlipidemia, unspecified; F17.210 Nicotine dependence, cigarettes, uncomplicated; Z01.810 Encounter for preprocedural cardiovascular examination; Z79.02 Long term (current) use of antithrombotics/antiplatelets; Z79.82 Long term (current) use of aspirin; Z79.899 Other long term (current) drug therapy
CPT/HCPCS: 94150; 80061; 80053; 80048; 80074; 84443; 83735; 85025; 85610; 85730; 81003; 87070; 83036; 71046; 93931; 93970; 93880; 71250; 93458; 99152; 99153; C1769 ×2; C1894 ×3; J2250; J1644 ×3; J2003; J3010; Q9967

== ENCOUNTER → 2024-09-25 | Outpatient (CLI) | payer MEDICARE, BC ==
--- NOTE | 2024-09-26 22:00 | US ---
EXAMINATION TYPE: US arterial LE single level DATE OF EXAM: 09/25/2024 12:54 PM COMPARISONS: None. CLINICAL INDICATION: Male, 79 years old with history of OPEN HEART; pre op cardiac surgery, CABG x 4 TECHNIQUE: Systolic pressures were taken of the upper and lower extremity arteries with ankle-brachia l indices and toe brachial indices calculated bilaterally. History of: Smoker: previous Hypertension: yes Diabetic: no Hyperlipidemia: yes TIA/CVA: no Previous Vascular Surgery: no IA: no Vascular Ulcers: no Claudication: no Gangrene: no FINDINGS: Doppler Waveforms: Right: Multiphasic Left: Multiphasic Brachial Artery systolic pressure: Right: 146 Left: 118 Posterior Tibial artery systolic pressure: Right: 146 Left: 145 Dorsalis Pedis artery systolic pressure: Right: 163 Left: 153 Ankle-Brachial Indices: Right: 1.23 Left: 1.15 (Vessel hardening > 1.4; Normal 0.9 - 1.4, Moderate 0.7 - 0.9, Severe 0.5-0.7) IMPRESSION: Normal ankle-brachial brachial indices bilaterally. [facility], , 09/26/2024 9:57 PM
== END | disposition home or self-care (01) ==
LOC: LABWHC1 11:59
PROVIDERS: ATTEND Thoracic Surgery (Cardiothoracic Vascular Surgery)
DX: Z01.818 Encounter for other preprocedural examination (principal); I25.10 Atherosclerotic heart disease of native coronary artery without angina pectoris
CPT/HCPCS: 86850; 86900; 86901; 86920; 93922

== ENCOUNTER 2024-09-28 05:34 | Inpatient (IN) | payer MEDICARE, BC ==
[2024-09-28] MEDS: ATORVASTATIN 10 MG TAB PO ONE (06:05)
[2024-09-28] MEDS: METOPROLOL TARTRATE 12.5 MG TAB PO ONE (06:05)
[2024-09-28] MEDS: MUPIROCIN 2% OINT 22 GM TUBE NASAL ONE (06:05)
[2024-09-28] MEDS: LACTATED RINGERS 1,000 ML IV ONE (06:32)
[2024-09-28] MEDS: IV FLUID CONTINUATION 1,000 ML IV ONE (06:43)
--- NOTE | 2024-09-28 07:29 | P.PN ---
Progress Note - Text Progress Note Date: 09/28/24 A 5 m walk test was completed with the patient this morning, the patient tolerated well, time 1: 3.45 seconds, time 2: 4.16 seconds, time 3: 2.83 seconds. An Orlando's test was completed on the patient's left arm which was positive with the hand and fingers flushing within 5 seconds and good return of O2 sat Pleth waveform.
[2024-09-28] MEDS ORDERED: ePHEDrine 50 MG/ML 1 ML VIAL ONE (08:14)
[2024-09-28] MEDS ORDERED: PHENYLEPHRINE-0.9% NACL SYG 1,000 MCG/10 ML SYRINGE ONE (08:14)
[2024-09-28] MEDS ORDERED: ALBUMIN HUMAN 5% (25gm) 500 ML VIAL IVPB ONE (08:14)
[2024-09-28] MEDS ORDERED: MIDAZOLAM HCL 10 MG/10 ML VIAL ONE (08:14)
[2024-09-28] MEDS ORDERED: PROPOFOL 10 MG/ML 20 ML VIAL IV ONE (08:14)
[2024-09-28] MEDS ORDERED: GLYCOPYRROLATE 0.2 MG/ML 2 ML VIAL ONE (08:14)
[2024-09-28] MEDS ORDERED: VECURONIUM 10 MG VIAL IV ONE (08:14)
[2024-09-28] MEDS ORDERED: NITROGLYCERIN-D5W PMX 50 MG/250 ML BOTTLE IV ONE (08:14)
[2024-09-28] MEDS ORDERED: fentaNYL (PF) 50 MCG/ML 50 ML VIAL ONE (08:14)
[2024-09-28] MEDS ORDERED: HEPARIN SODIUM,PORCINE 10,000 UNIT/ML 1 ML VIAL ONE (08:14)
[2024-09-28] MEDS ORDERED: HEPARIN SODIUM,PORCINE 5,000 UNIT/ML 1 ML VIAL ONE (08:14)
[2024-09-28 08:49] LABS: ABG Glucose Whole Blood 96 mg/dL (75-99); ABG Hematocrit 34 % (34.0-46.0); ABG Ionized Calcium 4.8 mg/dL (4.5-5.3); ABG Oxygen Saturation 99.3 % (94-97); ABG PH 7.41 (7.35-7.45); ABG PO2 148 mmHg (83-108); ABG Potassium Whole Blood 4.2 mmol/L (3.4-4.5); ABG Sodium Whole Blood 137 mmol/L (135-146)
[2024-09-28] MEDS: DILTIAZEM 125 MG in SODIUM CHLORIDE 0.9% 100 ML IV ONE (09:38)
[2024-09-28] MEDS: PAPAVERINE 360 MG in SODIUM CHLORIDE 0.9% 90 ML IV ONE (09:38)
[2024-09-28] MEDS: SODIUM CHLORIDE 0.9% 500 ML 500 ML with HEPARIN SODIUM,PORCINE (1 ML) 5,000 UNIT IV ONE (09:38)
[2024-09-28] MEDS: ceFAZolin 1,000 MG in SODIUM CHLORIDE 0.9% 1,000 ML IRRIGATION ONE (09:39)
[2024-09-28 10:23] LABS: ABG Glucose Whole Blood 108 mg/dL (75-99); ABG Hematocrit 30 % (34.0-46.0); ABG Ionized Calcium 4.5 mg/dL (4.5-5.3); ABG Lactic Acid Whole Blood 0.7 mmol/L (0.5-1.6); ABG Oxygen Saturation 98.8 % (94-97); ABG PH 7.37 (7.35-7.45); ABG PO2 179 mmHg (83-108); ABG Potassium Whole Blood 4.2 mmol/L (3.4-4.5); ABG Sodium Whole Blood 137 mmol/L (135-146)
[2024-09-28 11:05] LABS: ABG Glucose Whole Blood 114 mg/dL (75-99); ABG Hematocrit 30 % (34.0-46.0); ABG Ionized Calcium 4.5 mg/dL (4.5-5.3); ABG Lactic Acid Whole Blood 0.8 mmol/L (0.5-1.6); ABG Oxygen Saturation >99.4 % (94-97); ABG PO2 224 mmHg (83-108); ABG Potassium Whole Blood 3.9 mmol/L (3.4-4.5); ABG Sodium Whole Blood 138 mmol/L (135-146)
[2024-09-28 12:04] LABS: ABG Glucose Whole Blood 110 mg/dL (75-99); ABG Hematocrit 26 % (34.0-46.0); ABG Ionized Calcium 4.4 mg/dL (4.5-5.3); ABG Lactic Acid Whole Blood 0.7 mmol/L (0.5-1.6); ABG Oxygen Saturation 99.3 % (94-97); ABG PH 7.39 (7.35-7.45); ABG PO2 202 mmHg (83-108); ABG Potassium Whole Blood 3.7 mmol/L (3.4-4.5); ABG Sodium Whole Blood 137 mmol/L (135-146)
[2024-09-28 12:23] LABS: ABG Glucose Whole Blood 114 mg/dL (75-99); ABG Hematocrit 26 % (34.0-46.0); ABG Ionized Calcium 4.3 mg/dL (4.5-5.3); ABG Lactic Acid Whole Blood 0.8 mmol/L (0.5-1.6); ABG Oxygen Saturation 98.9 % (94-97); ABG PH 7.38 (7.35-7.45); ABG PO2 165 mmHg (83-108); ABG Potassium Whole Blood 3.7 mmol/L (3.4-4.5); ABG Sodium Whole Blood 138 mmol/L (135-146)
[2024-09-28 12:39] LABS: ABG PCO2 37 mmHg (35-45)
[2024-09-28 12:40] LABS: ABG Base Excess -0.8 mmol/L; ABG HCO3 24 mmol/L (21-25); ABG TCO2 22 mmol/L (19-24)
[2024-09-28 12:41] LABS: ABG HCO3 22 mmol/L (21-25); ABG PCO2 38 mmHg (35-45); ABG TCO2 21 mmol/L (19-24)
[2024-09-28 12:42] LABS: ABG Base Excess -0.7 mmol/L; ABG HCO3 24 mmol/L (21-25); ABG PCO2 38 mmHg (35-45)
[2024-09-28 12:42] LABS: ABG PCO2 37 mmHg (35-45)
[2024-09-28 12:43] LABS: ABG HCO3 22 mmol/L (21-25); ABG PCO2 38 mmHg (35-45)
[2024-09-28 12:43] LABS: ABG HCO3 23 mmol/L (21-25); ABG TCO2 22 mmol/L (19-24)
[2024-09-28 12:44] LABS: ABG Base Excess -2.6 mmol/L; ABG TCO2 21 mmol/L (19-24)
[2024-09-28] MEDS ORDERED: DEXMEDETOMIDINE/0.9% NACL(PMX) 400 MCG in EMPTY BAG 1 BAG IV SCH (12:47)
[2024-09-28] MEDS ORDERED: Magnesium Replacement Protocol 1 EACH MISC MISCELLANE PRN (12:47)
[2024-09-28] MEDS ORDERED: IPRATROPIUM-ALBUTEROL 3 ML NEB INHALATION PRN (12:47)
[2024-09-28] MEDS ORDERED: METOCLOPRAMIDE 5 MG/ML 2 ML VIAL IVP PRN (12:47)
[2024-09-28] MEDS ORDERED: BENZOCAINE/MENTHOL LOZENG 1 EACH LOZENGE MUCOUS MEM PRN (12:47)
[2024-09-28] MEDS ORDERED: DEXTROSE 50% SYRINGE 50 ML IVP PRN ×2 (12:47)
[2024-09-28] MEDS ORDERED: hydrALAZINE HCL 20 MG/ML 1 ML VIAL IVP PRN (12:47)
[2024-09-28] MEDS ORDERED: Potassium Replacement Protocol 1 EACH MISC MISCELLANE PRN (12:47)
[2024-09-28] MEDS ORDERED: Phosphorus Replacement Protoco 1 EACH MISC MISCELLANE PRN (12:47)
[2024-09-28] MEDS ORDERED: CALCIUM GLUCONATE IN NACL 2 GM in SALINE 1 100ML.BAG IVPB PRN (12:47)
--- NOTE | 2024-09-28 13:00 | P.ANPRN ---
Procedure Note - Anesthesia - Invasive Line Right Central Line Time Out Performed: Yes Date of Procedure: 09/28/24 Time of Procedure: 07:52 Location of Patient: PreOp Preparation: Sterile Prep, Sterile Dressing Central Line Location: Internal Jugular Ultrasound Used: No Purpose - Visualization and Identification of Vasculature: No Image Stored and Saved: No Narrative: Invasive line placement per sterile protocol utilized.
--- NOTE | 2024-09-28 13:01 | P.ANPRN ---
Procedure Note - Anesthesia - Invasive Line Right [place] Kathi Time Out Performed: Yes Date of Procedure: 09/28/24 Time of Procedure: 08:14 Location of Patient: Phase I Preparation: Sterile Prep, Sterile Dressing Central Line Location: Internal Jugular Ultrasound Used: No Purpose - Visualization and Identification of Vasculature: No Image Stored and Saved: No Narrative: Invasive line placement per sterile protocol utilized.
--- NOTE | 2024-09-28 13:19 | P.OP ---
Date of Procedure: 09/28/24 Preoperative Diagnosis: Coronary artery disease Postoperative Diagnosis: Same Procedure(s) Performed: Off-pump coronary artery bypass grafting x 3 with CAMPO to LAD, saphenous vein graft to first diagonal, hybrid conduit saphenous vein/left radial artery to posterior descending coronary artery, EVH of the left greater saphenous vein from the left thigh, endoscopic harvest of the left radial artery, ligation of the left atrial appendage with a 40 mm AtriCure clip. Implants: 40 mm AtriCure clip Anesthesia: YONAS Surgeon: Camron Pritchett Tier Truck Driver #1: Edgar Red Tier Truck Driver #2: Jesus Alberto Driscoll Estimated Blood Loss (ml): 400 IV fluids (ml): 3,000 Urine output (ml): 300 Pathology: none sent Condition: stable Disposition: ICU Indications for Procedure: 79-year old male with symptomatic three-vessel coronary artery disease presents for elective CABG. Operative Findings: The heart was deviated to the left of midline and rotated posteriorly. Greater saphenous vein was small at the knee but became good in the thigh. Radial artery was a good conduit although somewhat short. Left internal mammary artery was a good conduit. LAD was an excellent target with greater than 2 mm lumen and moderate diffuse disease. Right coronary artery was heavily diseased. The PDA was a good target with a 1.75 mm lumen moderate diffuse disease. First diagonal branch was a good target with moderate disease and a 1.75 mm lumen. Obtuse marginal branch was small and petered out quickly after coming out of the AV groove. It was decided to not graft the obtuse marginal for these reasons. Description of Procedure: Patient was brought to the operating room and placed supine on the operating table. General anesthesia was induced. JACQUELINE probe was placed. The anterior torso and bilateral lower extremities and left upper extremity were sterilely prepped and draped in standard fashion. Left radial artery was harvested endoscopically and prepared on the back table. On completion of the harvest of the left radial artery, the wound was drained and closed and the arm tucked at the side. Left greater saphenous vein was harvested using endoscopic harvest technique. The vein was prepared on the back table. Leg was closed after reversal of heparin. Simultaneous sternotomy was performed, the left hemisternu m was retracted upwards and the left internal mammary artery harvested on a vascularized pedicle, left intact on its origin from the subclavian and divided distally. The left pleural space was drained with a 32 Malagasy chest tube. Standard sternal retractor was placed. The pericardium was opened in the midline and the heart exposed with pericardial sutures. Patient was systemically heparinized and ACT's were maintained greater than 250 during grafting. 40 mm AtriCure clip was placed applied to the base of the left atrial appendage. The CAMPO was brought into the chest through a rent in the pleura and pericardium. The end was prepared appropriately and the target on the mid LAD was identified. The LAD was stabilized and opened and blood flow controlled with a 2 mm flow-through. End-to-side anastomosis between the CAMPO to the LAD was performed with running 8-0 Prolene suture. On completion of the anastomosis the flow through was removed effectively probing the proximal distal portion of the anastomosis. Suture was tied with good result and hemostasis and the inflow was opened. The JESSICA pedicle was tacked surrounding epicardium with 6-0 sutures. Next the first diagonal was identified and stabilized. It was opened in its midportion. Blood flow was controlled with a 1.5 mm flow-through. End-to-side anastomosis between saphenous vein and the first diagonal was performed with running 7-0 Prolene suture. On completion anastomosis flow through was removed effectively probing the proximal distal portion of the anastomosis. Suture was tied with good result and hemostasis. Good backbleeding was noted in the vein graft to the first valve. Heart was lowered in anatomic position. Vein was cut to appropriate length leaving the valve with segment of vein for the graft. Backbleeding was controlled with a bulldog clamp. Heartstring device was deployed in the ascending aorta to the left of the midline and the proximal anastomosis constructed with running 5-0 Prolene suture. On completion the anastomosis, it was de-aired by backbleeding and the suture was tied with good result and hemostasis. The inferior wall of the heart was now exposed. PDA was stabilized. It was opened fairly proximally and blood flow controlled with a 1.5 mm flow-through. Radial artery was anastomosed in end-to-side fashion with running 7-0 Prolene suture. On completion of the anastomosis, flow through was removed effectively probing the proximal distal portion of the anastomosis. Suture was tied with good result and hemostasis. Heart was lowered in anatomic position. Radial artery was noted to be a little short to reach the ascending aorta. Heartstring device was deployed in the proximal ascending aorta in the midline. Second piece of saphenous vein was anastomosed in end-to-side fashion with running 5-0 Prolene suture. On completion of the anastomosis the heartstring device was removed and the suture was tied with good result and hemostasis. Vein was cut short about 3 to 4 cm long and a bulldog clamp applied proximally. End to end anastomosis between the vein and the radial artery was constructed with running 7-0 Prolene suture. On completion of the anastomosis, it was de-aired by backbleeding and the inflow was open. The lateral wall was now exposed and the obtuse marginal carefully evaluated. There was a 1.25 mm vessel that did not go very far out of the AV groove. It was felt to be not worth fourth graft and was capped. Heparin was reversed with protamine and good hemostasis obtained throughout. The patient remained hemodynamically stable throughout. Mediastinum was drained with 36 Malagasy chest tube and irrigated with antibiotic solution. After assuring good hemostasis the chest was closed with 8 sternal wires. Fascia was closed with 0 Ethibond. Subcutaneous and subcuticular layers and the leg and chest were closed with layers of Vicryl suture. Dry sterile dressings were applied the patient was transferred to ICU in stable condition.
[2024-09-28 13:29] LABS: Glucose,Whole Blood 115 mg/dL (70-110)
[2024-09-28] MEDS: NITROGLYCERIN-D5W PMX 50 MG in DEXTROSE/WATER 1 250ML.BAG IV SCH (13:29)
[2024-09-28] MEDS: SODIUM CHLORIDE 0.9% 1,000 ML IV SCH (13:29)
[2024-09-28] MEDS: DILTIAZEM 125 MG in SODIUM CHLORIDE 0.9% 100 ML IV SCH (13:30)
[2024-09-28] MEDS: ALBUMIN HUMAN 5% 250 ML in EMPTY BAG 1 BAG IVPB PRN (13:31)
[2024-09-28 13:56] LABS: ABG Base Excess -1.1 mmol/L; ABG HCO3 24 mmol/L (21-25); ABG PCO2 39 mmHg (35-45); ABG PH 7.39 (7.35-7.45); ABG PO2 280 mmHg (83-108); ABG TCO2 25 mmol/L (19-24)
[2024-09-28 13:58] LABS: Allen Test Performed? no
[2024-09-28 14:11] LABS: Basophils % (A) 0 %; Eosinophils % (A) 0 %; HCT 27.4 % (39.0-53.0); Lymphocytes # (A) 3.7 k/uL (1.0-4.8); Lymphocytes % (A) 25 %; MCH 32.2 pg (25.0-35.0); MCHC 34.5 g/dL (31.0-37.0); MCV 93.3 fL (80.0-100.0); Mean Platelet Volume 6.8; Monocytes # (A) 0.4 k/uL (0-1.0); Monocytes % (A) 2 %; Neutrophils # (A) 10.5 k/uL (1.3-7.7); Neutrophils % (A) 71 %; Platelet Count 201 k/uL (150-450); RBC 2.93 m/uL (4.30-5.90); RDW 13.5 % (11.5-15.5); WBC 14.8 k/uL (3.8-10.6)
[2024-09-28 14:18] LABS: Ionized Calcium 4.5 mg/dL (4.5-5.3)
[2024-09-28 14:23] LABS: HGB 9.5 gm/dL (13.0-17.5); INR 1.2 (<1.2); Prothrombin Time 12.5 sec (10.0-12.5)
--- NOTE | 2024-09-28 14:35 | XR ---
EXAMINATION TYPE: XR chest 1V portable DATE OF EXAM: 09/28/2024 2:05 PM COMPARISON: 09/21/2024 CLINICAL INDICATION: Male, 79 years old with history of Post Operative Cardiac Surgery; TECHNIQUE: XR chest 1V portable Frontal view of the chest. FINDINGS: Lungs/Pleura: There is no evidence of pleural effusion, focal consolidation, or pneumothorax. Pulmonary vascularity: Unremarkable. Heart/mediastinum: Cardiomediastinal silhouette is unremarkable. Left atrial appendage occlusion hao ce is present. Musculoskeletal: No acute osseous pathology. Other findings: Subcutaneous emphysema scattered throughout the visualized thorax. Lines/Tubes: Endotracheal tube with distal tip 5.2cm above the katherin. Nasogastric tube with its distal tip and side-port projecting under the diaphragm. There is a [place] catheter with tip projecting over the spine. Left thoracotomy tube is present without evidence of pneumothorax. IMPRESSION: 1. Appropriate placement of support tubes and line. 2. Left thoracotomy tube without evidence of pneumothorax. 3. Small left pleural effusion. [facility], , 09/28/2024 2:33 PM
--- NOTE | 2024-09-28 14:51 | P.CNPUL ---
History of Present Illness Consult date: 09/28/24 Requesting physician: Camron Pritchett Reason for consult: other (Mechanical ventilator/critical care management) Chief complaint: Coronary artery disease History of present illness: This is an 79-year-old male patient with a known history of coronary artery disease who was brought in today electively for an off-pump coronary artery bypass grafting x 3. He received a CAMPO to the LAD, saphenous vein graft to the first diagonal, saphenous vein graft/left radial artery to the PDA. He did undergo left atrial appendage clipping. Postoperative day #0. He is seen upon his return to the intensive care unit. He is currently on the mechanical ventilator and assist-control mode at a rate of 14, tidal volume 550, FiO2 60% and a PEEP of 5. Arterial blood gases on 100% FiO2 revealed a PaO2 of 280, pCO2 of 39 and a pH of 7.39. White count 14.8. Hemoglobin 9.5. Platelet count 201. Glucose 115. Chest x-ray revealed appropriate placement of the endotracheal tube, nasogastric tube and [place] catheter. Left thoracotomy and mediastinal chest tubes in place. No evidence of pneumothorax. He is currently off the propofol. He remains on nitroglycerin drip at 5 mcg/min. Cardizem drip at 5 mg/h. Normal saline at 50 mL/h. Urine output is adequate. Cardiac output 5.7. Cardiac index 2.6. PA pressures 13/8. CVP 5. Sternal dressing is dry and intact. Heart hugger in place. Left radial site covered with Noam wrap. JUAN JOSE drain in place. Bilateral lower extremity Noam wraps in place. SCDs in place. He is initiated on DuoNeb inhalations. Heparin for DVT prophylaxis. Review of Systems ROS unobtainable: due to endotracheal tube Past Medical History Past Medical History: GERD/Reflux, Hearing Disorder / Deafness, Hyperlipidemia, Hypertension, Rheumatoid Arthritis (RA) Additional Past Medical History / Comment(s): Per sojezqcq-dm-oah [facility]es, on & off issues w/chest discomfort, dizzy, nausea, recently tested positive for Covid 09/09/24, no current symptoms, slight runny nose History of Any Multi-Drug Resistant Organisms: None Reported Past Surgical History: Heart Catheterization, Joint Replacement, Orthopedic Surgery Additional Past Surgical History / Comment(s): right shoulder rotator cuff, nura hand sx, bi lat cataract surgery. Left knee replacement Past Anesthesia/Blood Transfusion Reactions: No Reported Reaction Additional Past Anesthesia/Blood Transfusion Reaction / Comment(s): No hx of blood transfusion to date. Smoking Status: Former smoker - Past Family History Father Family Medical History: Hypertension Mother Family Medical History: Hypertension Medications and Allergies Home Medications Medication Instructions Recorded Confirmed Type Folic Acid 1 mg PO QAM 03/15/14 09/28/24 History metHOTREXate sodium [Methotrexate] 3 tab PO WE 03/15/14 09/28/24 History Atorvastatin [Lipitor] 40 mg PO QAM 12/10/17 09/28/24 History Losartan [Cozaar] 25 mg PO QAM 12/10/17 09/28/24 History Aspirin 81 mg PO QAM 09/18/24 09/28/24 History Metoprolol Succinate [Metoprolol 25 mg PO DAILY 30 Days #30 tab 09/21/24 09/28/24 Rx Succinate ER] Allergies Allergy/AdvReac Type Severity Reaction Status Date / Time No Known Allergies Allergy Verified 09/28/24 05:59 Physical Exam Vitals: Vital Signs Temp Pulse Resp BP BP Pulse Ox FiO2 09/28/24 13:59 60 09/28/24 13:21 100 09/28/24 12:48 100 09/28/24 06:30 98.4 F 78 16 165/89 172/96 97 Intake and Output 09/27/24 09/28/24 09/28/24 22:59 06:59 14:59 Intake Total 100 4 Output Total 1000 Balance 100 -996 Intake: IV 100 4 Output: Urine 750 Estimated Blood Loss 250 Other: Weight 97.8 kg GENERAL EXAM: Intubated, sedated 79-year-old male patient on the mechanical ventilator, in no apparent distress. HEAD: Normocephalic. EYES: Sluggish reaction of pupils, equal size. NOSE: Clear with pink turbinates. THROAT: Oral endotracheal and gastric tube secured in place. No erythema or exudates. NECK: Right IJ [place]-Kathi catheter in place. No masses, no JVD. CHEST: Sternal dressing dry and intact. Heart hugger in place. Left and mediastinal chest tubes in place to Pleur-evac and wall suction LUNGS: Equal air entry with no crackles, wheeze, rhonchi or dullness. CVS: S1 and S2 normal with no audible murmur, regular rhythm. ABDOMEN: No hepatosplenomegaly, hypoactive bowel sounds, no guarding or rigidity. SPINE: No scoliosis or deformity SKIN: No rashes CENTRAL NERVOUS SYSTEM: No focal deficits, tone is normal in all 4 extremities. EXTREMITIES: Left upper extremity a wrist wrap in place. JUAN JOSE drain in place with serous output. Bilateral lower extremity Noam wraps in place. SCDs in place. There is no peripheral edema. No clubbing, no cyanosis. Peripheral pulses are intact. Results - Laboratory Findings CBC and BMP: 09/28/24 13:24 ABG ABG pH 7.39 (7.35-7.45) 09/28/24 13:55 ABG pCO2 39 mmHg (35-45) 09/28/24 13:55 ABG pO2 280 mmHg (83-108) H 09/28/24 13:55 ABG O2 Saturation 100.0 % (94-97) H 09/28/24 13:55 PT/INR, D-dimer PT 12.5 sec (10.0-12.5) 09/28/24 13:24 INR 1.2 (<1.2) H 09/28/24 13:24 Abnormal lab findings: Abnormal Labs 09/25/24 09/28/24 09/28/24 12:07 08:49 10:23 WBC RBC Hgb Hct Neutrophils # INR ABG pO2 148 H 179 H ABG Total CO2 ABG O2 Saturation 99.3 H 98.8 H ABG Hematocrit 30 L ABG Ionized Calcium ABG Glucose 108 H Hemoglobin 11.1 L 9.7 L POC Glucose (mg/dL) Arterial Blood Glucose 108 H Crossmatch See Detail 09/28/24 09/28/24 09/28/24 11:05 12:04 12:22 WBC RBC Hgb Hct Neutrophils # INR ABG pO2 224 H 202 H 165 H ABG Total CO2 ABG O2 Saturation >99.4 H 99.3 H 98.9 H ABG Hematocrit 30 L 26 L 26 L ABG Ionized Calcium 4.4 L 4.3 L ABG Glucose 114 H 110 H 114 H Hemoglobin 9.7 L 8.5 L 8.5 L POC Glucose (mg/dL) Arterial Blood Glucose 114 H 110 H 114 H Crossmatch 09/28/24 09/28/24 09/28/24 13:24 13:24 13:28 WBC 14.8 H RBC 2.93 L Hgb 9.5 L D Hct 27.4 L Neutrophils # 10.5 H INR 1.2 H ABG pO2 ABG Total CO2 ABG O2 Saturation ABG Hematocrit ABG Ionized Calcium ABG Glucose Hemoglobin POC Glucose (mg/dL) 115 H Arterial Blood Glucose Crossmatch 09/28/24 13:55 WBC RBC Hgb Hct Neutrophils # INR ABG pO2 280 H ABG Total CO2 25 H ABG O2 Saturation 100.0 H ABG Hematocrit ABG Ionized Calcium ABG Glucose Hemoglobin 9.5 L POC Glucose (mg/dL) Arterial Blood Glucose Crossmatch - Diagnostic Findings Chest x-ray: image reviewed Assessment and Plan Assessment: Coronary artery disease status post coronary artery bypass grafting x 3, off- pump, received a CAMPO to the LAD, saphenous vein graft to the first diagonal, hybrid conduit saphenous vein/left radial arterial graft to the PDA. Left atrial appendage clipping. Postoperative day #0. Mechanical ventilator management, expected outcome of surgery History of hypertension History of rheumatoid arthritis on methotrexate Remote history of smoking, quit over 30 years ago Plan: The patient was seen and evaluated Chest x-ray, ABGs, labs and medications reviewed Titrate down the FiO2 as tolerated Plan for early extubation protocol as tolerated Continue bronchodilators Heparin for DVT prophylaxis Currently on a Cardizem drip Currently on a nitroglycerin drip Normal saline at 50 mL/h We will continue to follow and make further recommendations based on his clinical status I have personally seen and examined the patient, performed the documentation and the assessment and plan as written. Number of minutes spent on the visit: 20 Dictation was produced using [employer] dictation software. Please excuse any gramm atical, word or spelling errors.
[2024-09-28 14:52] LABS: Glucose,Whole Blood 132 mg/dL (70-110)
[2024-09-28] MEDS: ONDANSETRON 4 MG/2 ML VIAL IVP PRN (15:08)
[2024-09-28] MEDS: HEPARIN SODIUM,PORCINE 5,000 UNIT/ML 1 ML VIAL SQ SCH (15:08)
[2024-09-28 15:11] LABS: ALT 16 U/L (4-49); AST 19 U/L (17-59); African American GFR (CKD) >90 (>60 ml/min/1.73 sqM); Alkaline Phosphatase 64 U/L (38-126); Anion Gap 7 mmol/L; Blood Urea Nitrogen 13 mg/dL (9-20); Carbon Dioxide 21 mmol/L (22-30); Chloride 106 mmol/L (98-107); Glucose 105 mg/dL (74-99); Magnesium 1.6 mg/dL (1.6-2.3); Non-African American GFR(CKD) 86 (>60 ml/min/1.73 sqM); Sodium 134 mmol/L (137-145); Total Bilirubin 0.8 mg/dL (0.2-1.3); Total Protein 5.7 g/dL (6.3-8.2)
[2024-09-28] MEDS: IPRATROPIUM-ALBUTEROL 3 ML NEB INHALATION SCH ×2 (16:23→21:21)
[2024-09-28 16:43] LABS: Glucose,Whole Blood 127 mg/dL (70-110)
[2024-09-28 16:50] LABS: Basophils % (A) 0 %; Eosinophils % (A) 0 %; HCT 30.2 % (39.0-53.0); HGB 10.1 gm/dL (13.0-17.5); Lymphocytes # (A) 4.1 k/uL (1.0-4.8); Lymphocytes % (A) 23 %; MCH 31.4 pg (25.0-35.0); MCHC 33.5 g/dL (31.0-37.0); MCV 93.7 fL (80.0-100.0); Mean Platelet Volume 7.2; Monocytes # (A) 0.6 k/uL (0-1.0); Monocytes % (A) 3 %; Neutrophils # (A) 12.4 k/uL (1.3-7.7); Neutrophils % (A) 71 %; Platelet Count 230 k/uL (150-450); RBC 3.22 m/uL (4.30-5.90); RDW 13.4 % (11.5-15.5); WBC 17.5 k/uL (3.8-10.6)
[2024-09-28 16:56] LABS: ABG Base Excess -2.3 mmol/L; ABG HCO3 23 mmol/L (21-25); ABG Oxygen Saturation 98.3 % (94-97); ABG PCO2 39 mmHg (35-45); ABG PH 7.37 (7.35-7.45); ABG PO2 103 mmHg (83-108); ABG TCO2 24 mmol/L (19-24)
[2024-09-28 16:58] LABS: Allen Test Performed? no
[2024-09-28 17:59] LABS: Glucose,Whole Blood 133 mg/dL (70-110)
[2024-09-28] MEDS: ACETAMINOPHEN IV (For NPO) 1,000 MG in EMPTY BAG 1 BAG IVPB SCH (18:17)
[2024-09-28] MEDS: INSULIN REGULAR 100 UNIT in SODIUM CHLORIDE 0.9% 100 ML IV SCH (18:33)
[2024-09-28 18:34] LABS: Glucose,Whole Blood 130 mg/dL (70-110)
[2024-09-28 19:38] LABS: Basophils % (A) 0 %; Eosinophils % (A) 0 %; HCT 29.7 % (39.0-53.0); HGB 10.1 gm/dL (13.0-17.5); Lymphocytes # (A) 3.1 k/uL (1.0-4.8); Lymphocytes % (A) 22 %; MCH 31.7 pg (25.0-35.0); MCHC 33.9 g/dL (31.0-37.0); MCV 93.4 fL (80.0-100.0); Mean Platelet Volume 6.7; Monocytes # (A) 0.5 k/uL (0-1.0); Monocytes % (A) 4 %; Neutrophils # (A) 10.3 k/uL (1.3-7.7); Neutrophils % (A) 73 %; Platelet Count 223 k/uL (150-450); RBC 3.18 m/uL (4.30-5.90); RDW 13.5 % (11.5-15.5); WBC 14.1 k/uL (3.8-10.6)
[2024-09-28 20:16] LABS: Glucose,Whole Blood 128 mg/dL (70-110)
--- NOTE | 2024-09-28 20:58 | P.CRDCN ---
History of Present Illness History of present illness: HISTORY OF PRESENTING ILLNESS This is a pleasant 79 year-old with past medical history significant for hypertension, hyperlipidemia, mild ascending aortic aneurysm 4.0cm, multivessel CAD and remote tobacco abuse who presented for elective CABG. Patient follows in the office with Dr Blue. He has been noting exertional chest pain and dyspnea with exertion over the last 2-3 months and had workup including echo which showed preserved EF 55% and stress echo which showed inducible ischemia. He underwent diagnostic LHC which showed a multivessel CAD 80-90% LAD, circumflex and RCA disease. He underwent successful CABG x 3 and RODRI ligation today with ACMPO to LAD, SVG to diagonal and hybrid SVG/radial to PDA. He is currently intubated and sedated however able to nod his head to answer some questions. He is on a nitro and cardizem drip. He is off of pressors. He is in normal sinus rhythm. Xray shows appropriate lines and small left pleural effusion. REVIEW OF SYSTEMS At the time of my exam: Unable to perform secondary to patient being intubated and sedated PHYSICAL EXAMINATION Vital signs reviewed. CONSTITUTIONAL: No apparent distress, intubated and sedated. HEENT: Head is normocephalic. Pupils are equal, round. Sclerae anicteric. Mucous membranes of the mouth are moist. No JVD. No carotid bruit. CHEST EXAMINATION: Lungs are clear to auscultation. HEART EXAMINATION: Regular rate and rhythm. S1, S2 heard. No murmurs, gallops or rub. ABDOMEN: Soft, nontender. Positive bowel sounds. EXTREMITIES: 2+ peripheral pulses, no lower extremity edema and no calf tenderne ss. NEUROLOGIC EXAMINATION: Patient is somnomlent on vent but able to answer some questions ASSESSMENT CAD s/p CABG x 3 09/28 Hypertension Hyperlipidemia Mild ascending aortic aneurysm 4.0 cm Remote tobacco abuse PLAN Continue with current regimen including aspirin Plavix, amiodarone, Metoprolol. Wean ventillator as able Monitor swan and CO/CI however appears to be compensating off of inotropes Further recs to follow. Past Medical History Past Medical History: GERD/Reflux, Hearing Disorder / Deafness, Hyperlipidemia, Hypertension, Rheumatoid Arthritis (RA) Additional Past Medical History / Comment(s): Per [id number] [facility]es, on & off issues w/chest discomfort, dizzy, nausea, recently tested positive for Covid 09/09/24, no current symptoms, slight runny nose History of Any Multi-Drug Resistant Organisms: None Reported Past Surgical History: Heart Catheterization, Joint Replacement, Orthopedic Surgery Additional Past Surgical History / Comment(s): right shoulder rotator cuff, nura hand sx, bi lat cataract surgery. Left knee replacement Past Anesthesia/Blood Transfusion Reactions: No Reported Reaction Additional Past Anesthesia/Blood Transfusion Reaction / Comment(s): No hx of blood transfusion to date. Smoking Status: Former smoker - Past Family History Father Family Medical History: Hypertension Mother Family Medical History: Hypertension Medications and Allergies Home Medications Medication Instructions Recorded Confirmed Type Folic Acid 1 mg PO QAM 03/15/14 09/28/24 History metHOTREXate sodium [Methotrexate] 3 tab PO WE 03/15/14 09/28/24 History Atorvastatin [Lipitor] 40 mg PO QAM 12/10/17 09/28/24 History Losartan [Cozaar] 25 mg PO QAM 12/10/17 09/28/24 History Aspirin 81 mg PO QAM 09/18/24 09/28/24 History Metoprolol Succinate [Metoprolol 25 mg PO DAILY 30 Days #30 tab 09/21/24 09/28/24 Rx Succinate ER] Allergies Allergy/AdvReac Type Severity Reaction Status Date / Time No Known Allergies Allergy Verified 09/28/24 05:59 Physical Exam Vitals: Vital Signs Temp Pulse Pulse Resp BP BP Pulse Ox 09/28/24 19:00 92 20 98 09/28/24 18:30 90 22 99 09/28/24 18:00 90 18 99 09/28/24 17:30 93 28 H 96 09/28/24 17:00 86 23 100 09/28/24 16:30 85 22 100 09/28/24 16:11 09/28/24 16:00 97.5 F L 81 19 98 09/28/24 15:36 09/28/24 15:31 09/28/24 15:30 79 18 100 09/28/24 15:20 71 15 98 09/28/24 15:10 73 16 100 09/28/24 15:00 73 17 100 09/28/24 14:50 73 17 100 09/28/24 14:40 76 13 100 09/28/24 14:30 96.1 F L 75 16 100 09/28/24 14:20 67 16 100 09/28/24 14:10 78 18 100 09/28/24 14:00 95.9 F L 66 9 L 100 09/28/24 13:59 09/28/24 13:50 69 4 L 100 09/28/24 13:40 78 15 100 09/28/24 13:30 95.5 F L 66 14 80 L 09/28/24 13:23 65 14 09/28/24 13:21 09/28/24 12:48 09/28/24 06:30 98.4 F 78 16 165/89 172/96 97 FiO2 09/28/24 19:00 09/28/24 18:30 09/28/24 18:00 09/28/24 17:30 09/28/24 17:00 45 09/28/24 16:30 09/28/24 16:11 45 09/28/24 16:00 45 09/28/24 15:36 45 09/28/24 15:31 60 09/28/24 15:30 09/28/24 15:20 09/28/24 15:10 09/28/24 15:00 09/28/24 14:50 09/28/24 14:40 09/28/24 14:30 60 09/28/24 14:20 09/28/24 14:10 09/28/24 14:00 09/28/24 13:59 60 09/28/24 13:50 09/28/24 13:40 09/28/24 13:30 09/28/24 13:23 09/28/24 13:21 100 09/28/24 12:48 100 09/28/24 06:30 Intake and Output 09/28/24 09/28/24 09/28/24 06:59 14:59 22:59 Intake Total 100 147 495 Output Total 1085 930 Balance 640 -646 -688 Intake: IV 100 147 495 0.9 75 250 Injectate 50 100 Kefzol 0 100 Pressure Bags 18 45 Output: Chest Tube Drainage 85 235 Chest Tube Left Lateral 15 60 Chest Chest Tube Mediastinal 70 175 Urine 750 695 Estimated Blood Loss 250 Other: Voiding Method Indwelling Catheter Weight 97.8 kg ABP, PAP, CO, CI - Last 8 Hours Arterial Blood Pressure 135/58 Arterial Blood Pressure 138/55 Arterial Blood Pressure 146/60 Arterial Blood Pressure 150/60 Arterial Blood Pressure 136/58 Arterial Blood Pressure 140/61 Arterial Blood Pressure 127/57 Arterial Blood Pressure 126/59 Arterial Blood Pressure 125/54 Arterial Blood Pressure 129/56 Arterial Blood Pressure 134/60 Arterial Blood Pressure 22/14 Arterial Blood Pressure 129/57 Arterial Blood Pressure 131/59 Arterial Blood Pressure 129/55 Arterial Blood Pressure 123/64 Arterial Blood Pressure 132/57 Arterial Blood Pressure 141/53 Arterial Blood Pressure 154/64 Arterial Blood Pressure 100/45 Pulmonary Artery Pressure 15/5 Pulmonary Artery Pressure 11/1 Pulmonary Artery Pressure 14/4 Pulmonary Artery Pressure 15/4 Pulmonary Artery Pressure 15/8 Pulmonary Artery Pressure 17/9 Pulmonary Artery Pressure 17/9 Pulmonary Artery Pressure 17/9 Pulmonary Artery Pressure 14/7 Pulmonary Artery Pressure 15/7 Pulmonary Artery Pressure 13/7 Pulmonary Artery Pressure 13/7 Pulmonary Artery Pressure 15/9 Pulmonary Artery Pressure 14/9 Pulmonary Artery Pressure 15/8 Pulmonary Artery Pressure 23/13 Pulmonary Artery Pressure 16/9 Pulmonary Artery Pressure 21/8 Pulmonary Artery Pressure 15/11 Cardiac Output 8.3 Cardiac Output 8.3 Cardiac Output 7.3 Cardiac Output 7.3 Cardiac Output 8 Cardiac Output 8.0 Cardiac Output 7.3 Cardiac Output 7.3 Cardiac Output 7.3 Cardiac Output 7.3 Cardiac Output 7.3 Cardiac Output 7.3 Cardiac Output 5.7 Cardiac Output 5.7 Cardiac Output 5.7 Cardiac Output 5.7 Cardiac Output 6.2 Cardiac Output 6.2 Cardiac Output 6.2 Cardiac Index 3.7 Cardiac Index 3.7 Cardiac Index 3.3 Cardiac Index 3.3 Cardiac Index 3.6 Cardiac Index 3.6 Cardiac Index 3.3 Cardiac Index 3.3 Cardiac Index 3.3 Cardiac Index 3.3 Cardiac Index 3.3 Cardiac Index 3.3 Cardiac Index 2.6 Cardiac Index 2.6 Cardiac Index 2.6 Cardiac Index 2.6 Cardiac Index 2.8 Cardiac Index 2.8 Cardiac Index 2.8 Results 09/28/24 19:15 09/28/24 13:24 Cardiac Enzymes 09/28/24 Range/Units 13:24 AST 19 (17-59) U/L Coagulation 09/28/24 Range/Units 13:24 PT 12.5 (10.0-12.5) sec APTT 28.0 (22.0-30.0) sec CBC 09/28/24 09/28/24 09/28/24 Range/Units 13:24 16:45 19:15 WBC 14.8 H 17.5 H 14.1 H (3.8-10.6) k/uL RBC 2.93 L 3.22 L 3.18 L (4.30-5.90) m/uL Hgb 9.5 L D 10.1 L 10.1 L (13.0-17.5) gm/dL Hct 27.4 L 30.2 L 29.7 L (39.0-53.0) % Plt Count 201 230 223 (150-450) k/uL Comprehensive Metabolic Panel 09/28/24 Range/Units 13:24 Sodium 134 L (137-145) mmol/L Potassium 4.0 (3.5-5.1) mmol/L Chloride 106 (98-107) mmol/L Carbon Dioxide 21 L (22-30) mmol/L BUN 13 (9-20) mg/dL Creatinine 0.75 (0.66-1.25) mg/dL Glucose 105 H (74-99) mg/dL Calcium 8.0 L (8.4-10.2) mg/dL AST 19 (17-59) U/L ALT 16 (4-49) U/L Alkaline Phosphatase 64 (38-126) U/L Total Protein 5.7 L (6.3-8.2) g/dL Albumin 4.0 (3.5-5.0) g/dL Current Medications Generic Name Dose Route Start Last Admin Trade Name Freq PRN Reason Stop Dose Admin Acetaminophen 1,000 mg 09/29/24 12:00 Acetaminophen Tab 500 Mg Tab PO Q6HR PRN Fever And/ Or Mild Pain (1-3) Albuterol/Ipratropium 3 ml 09/28/24 12:47 Ipratropium-Albuterol 3 Ml Neb INHALATION RT-Q2H PRN Shortness Of Breath Or Wheezing Albuterol/Ipratropium 3 ml 09/28/24 20:00 Ipratropium-Albuterol 3 Ml Neb INHALATION RT-QID [facility] Aspirin 325 mg 09/29/24 09:00 Aspirin 325 Mg Tab PO DAILY [facility] Atorvastatin Calcium 40 mg 09/29/24 09:00 Atorvastatin 40 Mg Tab PO DAILY [facility] Benzocaine/Menthol 1 each 09/28/24 12:47 Benzocaine/Menthol Lozeng 1 Each Lozenge MUCOUS MEM Q2H PRN Sore Throat Bisacodyl 10 mg 09/29/24 09:00 Bisacodyl 10 Mg Supp RECTAL DAILY PRN Constipation Clopidogrel Bisulfate 75 mg 09/29/24 09:00 Clopidogrel 75 Mg Tab PO DAILY TICO Dextrose/Water 25 ml 09/28/24 12:47 Dextrose 50% Syringe 50 Ml IVP PER PROTOCOL PRN Hypoglycemia Protocol Dextrose/Water 50 ml 09/28/24 12:47 Dextrose 50% Syringe 50 Ml IVP PER PROTOCOL PRN Hypoglycemia Protocol Heparin Sodium (Porcine) 5,000 unit 09/28/24 16:00 09/28/24 15:08 Heparin Sodium,Porcine 5,000 Unit/Ml 1 Ml Vial SQ 5,000 unit Q8HR TICO Administration Hydralazine HCl 10 mg 09/28/24 12:47 Hydralazine Hcl 20 Mg/Ml 1 Ml Vial IVP Q1H PRN Blood Pressure - High Insulin Human Regular 100 unit 101 mls @ 0 mls/hr 09/28/24 13:30 09/28/24 18:33 / Sodium Chloride IV 1 unit/hr .Q0M TICO 1.01 mls/hr Administration Protocol Per Protocol Diltiazem HCl 125 mg/ Sodium 125 mls @ 5 mls/hr 09/28/24 13:30 09/28/24 13:30 Chloride IV 5 mg/hr .Q24H TICO 5 mls/hr Administration 5 MG/HR Nitroglycerin/Dextrose 50 mg/ 250 mls @ 1.5 mls/hr 09/28/24 12:47 09/28/24 13:29 IV Solution IV 5 mcg/min .Q24H TICO 1.5 mls/hr Administration 5 MCG/MIN Amiodarone HCl 150 mg/ 103 mls @ 618 mls/hr 09/28/24 12:47 Dextrose/Water IV .Q10M PRN A.FIB/FLUTTER Protocol Amiodarone HCl 360 mg/ 207.2 mls @ 34.533 mls/hr 09/28/24 12:47 Dextrose/Water IV .Q6H PRN A.FIB/FLUTTER Protocol 1 MG/MIN Amiodarone HCl 450 mg/ 250 mls @ 16.667 mls/hr 09/28/24 12:47 Dextrose/Water IV .Q15H PRN A.FIB/FLUTTER Protocol 0.5 MG/MIN Albumin Human 250 ml/ IV 250 mls @ 250 mls/hr 09/28/24 12:47 09/28/24 13:31 Solution IVPB 09/30/24 12:46 250 mls/hr Q1HR PRN Administration For Volume Protocol Propofol 1,000 mg/ IV Solution 100 mls @ 0 mls/hr 09/28/24 12:47 09/28/24 13:31 IV 25 mcg/kg/min .Q0M TICO 14.67 mls/hr Administration Protocol Titrate Dexmedetomidine HCl 400 mcg/ 100 mls @ 0 mls/hr 09/28/24 12:47 IV Solution IV 09/29/24 12:48 .Q0M TICO Protocol Titrate Acetaminophen 1,000 mg/ IV 100 mls @ 400 mls/hr 09/28/24 18:00 09/28/24 18:17 Solution IVPB 09/29/24 12:14 400 mls/hr Q6HR TICO Administration Cefazolin Sodium 2 gm/ Sodium 50 mls @ 100 mls/hr 09/28/24 16:00 09/28/24 15:08 Chloride IVPB 09/29/24 08:29 100 mls/hr Q8HR TICO Administration Protocol Calcium Gluconate/Sodium 100 mls @ 100 mls/hr 09/28/24 12:47 Chloride 2 gm/ IV Solution IVPB 10/08/24 12:46 ONCE PRN Ionized Calcium less than 4.4 Sodium Chloride 1,000 mls @ 50 mls/hr 09/28/24 13:00 09/28/24 13:29 Saline 0.9% IV 50 mls/hr .Q20H TICO Administration Magnesium Hydroxide 2,400 mg 09/29/24 09:00 Magnesium Hydroxide 2,400 Mg/30 Ml Cup PO BID PRN Constipation Metoclopramide HCl 10 mg 09/28/24 12:47 Metoclopramide 5 Mg/Ml 2 Ml Vial IVP Q4H PRN Nausea And Vomiting Metoprolol Tartrate 12.5 mg 09/29/24 09:00 Metoprolol Tartrate 12.5 Mg Tab PO BID TICO Miscellaneous Information 1 each 09/28/24 12:47 Potassium Replacement Protocol 1 Each Misc MISCELLANE DAILY PRN Per Protocol Protocol Miscellaneous Information 1 each 09/28/24 12:47 Magnesium Replacement Protocol 1 Each Misc MISCELLANE DAILY PRN Per Protocol Protocol Miscellaneous Information 1 each 09/28/24 12:47 Phosphorus Replacement Protoco 1 Each Misc MISCELLANE DAILY PRN Per Protocol Protocol Ondansetron HCl 4 mg 09/28/24 12:47 09/28/24 15:08 Ondansetron 4 Mg/2 Ml Vial IVP 4 mg Q6HR PRN Administration Nausea And Vomiting Oxycodone HCl 5 mg 09/29/24 00:42 09/28/24 15:08 Oxycodone Hcl 5 Mg Tab PO 5 mg Q6HR PRN Administration Moderate Pain (Scale 4 to 6) Oxycodone HCl 10 mg 09/28/24 12:47 09/28/24 19:43 Oxycodone Hcl 5 Mg Tab PO 10 mg Q4HR PRN Administration Severe Pain (Scale 7 to 10) Pantoprazole Sodium 40 mg 09/29/24 09:00 Pantoprazole 40 Mg/10 Ml Vial IVP DAILY TICO Senna/Docusate Sodium 2 each 09/29/24 21:00 Sennosides-Docusate Sodium 1 Each Tab PO HS TICO Sodium Chloride 10 ml 09/28/24 21:00 09/28/24 20:34 Sodium Chloride 0.9% Flush 10 Ml Syringe IV 10 ml BID TICO Administration Intake and Output 09/28/24 09/28/24 09/28/24 06:59 14:59 22:59 Intake Total 100 147 495 Output Total 1085 930 Balance 100 -558 -435 Intake: IV 100 147 495 0.9 75 250 Injectate 50 100 Kefzol 0 100 Pressure Bags 18 45 Output: Chest Tube Drainage 85 235 Chest Tube Left Lateral 15 60 Chest Chest Tube Mediastinal 70 175 Urine 750 695 Estimated Blood Loss 250 Other: Voiding Method Indwelling Catheter Weight 97.8 kg 09/28/24 19:15 09/28/24 13:24
[2024-09-28 22:13] LABS: Glucose,Whole Blood 131 mg/dL (70-110)
[2024-09-29 00:04] LABS: Glucose,Whole Blood 126 mg/dL (70-110)
[2024-09-29 01:59] LABS: Glucose,Whole Blood 118 mg/dL (70-110)
[2024-09-29 03:14] LABS: Glucose,Whole Blood 128 mg/dL (70-110)
[2024-09-29 04:38] LABS: Basophils % (A) 0 %; Eosinophils % (A) 0 %; HCT 29.5 % (39.0-53.0); HGB 9.8 gm/dL (13.0-17.5); Lymphocytes # (A) 2.9 k/uL (1.0-4.8); Lymphocytes % (A) 25 %; MCHC 33.1 g/dL (31.0-37.0); MCV 93.9 fL (80.0-100.0); Mean Platelet Volume 7.1; Monocytes # (A) 0.5 k/uL (0-1.0); Monocytes % (A) 4 %; Neutrophils % (A) 69 %; Platelet Count 222 k/uL (150-450); RBC 3.14 m/uL (4.30-5.90); RDW 13.4 % (11.5-15.5); WBC 11.6 k/uL (3.8-10.6)
[2024-09-29 04:42] LABS: Ionized Calcium 4.6 mg/dL (4.5-5.3)
[2024-09-29 04:54] LABS: ALT 16 U/L (4-49); AST 23 U/L (17-59); African American GFR (CKD) >90 (>60 ml/min/1.73 sqM); Albumin 3.9 g/dL (3.5-5.0); Alkaline Phosphatase 65 U/L (38-126); Anion Gap 8 mmol/L; Blood Urea Nitrogen 14 mg/dL (9-20); Calcium 8.3 mg/dL (8.4-10.2); Carbon Dioxide 25 mmol/L (22-30); Chloride 101 mmol/L (98-107); Glucose 120 mg/dL (74-99); Magnesium 1.7 mg/dL (1.6-2.3); Non-African American GFR(CKD) 88 (>60 ml/min/1.73 sqM); Potassium 3.9 mmol/L (3.5-5.1); Sodium 134 mmol/L (137-145); Total Bilirubin 1.1 mg/dL (0.2-1.3); Total Protein 5.7 g/dL (6.3-8.2)
[2024-09-29] MEDS ORDERED: Potassium Replacement Protocol 1 EACH MISC MISCELLANE PRN (04:59)
[2024-09-29] MEDS ORDERED: Magnesium Replacement Protocol 1 EACH MISC MISCELLANE PRN (05:01)
[2024-09-29] MEDS: POTASSIUM CHLORIDE ER 20 MEQ TAB.ER PO SCH (05:10)
[2024-09-29] MEDS: MAGNESIUM SULFATE-D5W PMX 1 GM in DEXTROSE/WATER 1 100ML.BAG IVPB ONE (05:19)
[2024-09-29 05:38] LABS: Glucose,Whole Blood 117 mg/dL (70-110)
[2024-09-29 08:10] LABS: Glucose,Whole Blood 147 mg/dL (70-110)
[2024-09-29] MEDS: METOPROLOL TARTRATE 12.5 MG TAB PO SCH (08:18)
[2024-09-29] MEDS: ATORVASTATIN 40 MG TAB PO SCH (08:18)
[2024-09-29] MEDS: CLOPIDOGREL 75 MG TAB PO SCH (08:19)
[2024-09-29] MEDS: PANTOPRAZOLE 40 MG/10 ML VIAL IVP SCH (08:19)
[2024-09-29] MEDS: ASPIRIN 325 MG TAB PO SCH (08:19)
--- NOTE | 2024-09-29 08:23 | XR ---
EXAMINATION TYPE: XR chest 1V portable DATE OF EXAM: 09/29/2024 4:50 AM COMPARISON: Chest radiographs from09/28/2024 CLINICAL INDICATION: Male, 79 years old with history of Post Operative Cardiac Surgery; TECHNIQUE: XR chest 1V portable Frontal view of the chest. FINDINGS: Lungs/Pleura: There is no evidence of pleural effusion, focal consolidation, or pneumothorax. Pulmonary vascularity: Unremarkable. Heart/mediastinum: Cardiomediastinal silhouette is unremarkable. Musculoskeletal: No acute osseous pathology. Other findings: None Lines/Tubes: Interval removal of the endotracheal tube. Interval removal of the enteric tube, Drainage tubes with tips projecting over the mediastinum. Left thoracotomy tube is present without evidence of pneumothorax. IMPRESSION: Post surgical change with blunting of the left costophrenic angle. [facility], , 09/29/2024 8:21 AM
[2024-09-29 08:57] LABS: Glucose,Whole Blood 115 mg/dL (70-110)
[2024-09-29] MEDS ORDERED: bisacodyL 10 MG SUPP RECTAL PRN (09:00)
[2024-09-29] MEDS ORDERED: METOPROLOL TARTRATE 12.5 MG TAB PO SCH (09:00)
[2024-09-29] MEDS ORDERED: METOPROLOL TARTRATE 25 MG TAB PO SCH (09:00)
[2024-09-29] MEDS ORDERED: MAGNESIUM HYDROXIDE 2,400 MG/30 ML CUP PO PRN (09:00)
--- NOTE | 2024-09-29 09:31 | P.PN ---
Subjective Progress Note Date: 09/29/24 Principal diagnosis: Coronary artery disease. Past medical history significant for hypertension, dyslipidemia, osteoarthritis, hard of hearing and a remote history of nicotine dependence quit smoking 30 years ago. POD #1 off-pump coronary artery bypass grafting x 3 with CAMPO to LAD, saphenous vein graft to first diagonal, hybrid conduit saphenous vein/left radial artery to posterior descending coronary artery, EVH of the left greater saphenous vein from the left thigh, endoscopic harvest of the left radial artery, ligation of the left atrial appendage with a 40 mm AtriCure clip. Postoperative acute blood loss anemia, expected given hemodilution. The patient was seen and examined in follow-up today September 29, 2024 at his bedside in the intensive care unit. He was successfully extubated last evening at 5:30 PM, he is currently sitting up to the bedside chair, is awake, alert, oriented x 3 and is in no acute apparent distress. He denies any complaints of shortness of breath at this time, he is complaining of some surgical type pain to his chest tube insertion sites, states his pain is well-controlled on the current pain medication regimen, he is complaining of some nausea and was given Zofran this a.m., which he states helped resolve the nausea. Oxygen saturations are 96% on 2 L nasal cannula and he is achieving 1250 mL on his incentive spirometry with encouragement. Bedside telemetry is showing normal sinus rhythm heart rate 71 bpm. Right IJ cordis remains in place with Gunnison-Kathi catheter, current hemodynamic showing a cardiac output 5.6, cardiac index 2.5, SVR 860, PA pressures 11/6 and a CVP 1 mmHg. Mediastinal and left pleural chest tube re mary anne in place. No air leak is present. Draining thin serosanguineous drainage. Mediastinal chest tube drained 200 mL over the last 8 hours and 500 mL since surgery. Left pleural chest tube drain 150 mL in the last 8 hours and 250 mL since surgery. Left forearm JUAN JOSE drain in place with scant serosanguineous drainage with 20 mL output in the last 8 hours. Chest x-ray and laboratory results were reviewed. Objective - Vital Signs Vital signs: Vital Signs Temp 98.8 F 09/29/24 04:00 Pulse 71 09/29/24 07:30 Resp 23 09/29/24 07:30 BP 98/58 09/29/24 07:30 Pulse Ox 94 L 09/29/24 07:30 FiO2 45 09/28/24 17:00 Intake & Output 09/28/24 09/29/24 09/29/24 18:59 06:59 18:59 Intake Total 563 1374.725 582.123 Output Total 1905 1110 70 Balance -1342 264.725 512.123 Weight 93.4 kg Intake: IV 563 908 79 0.9 275 600 50 Injectate 130 200 20 Kefzol 100 Pressure Bags 54 108 9 Intake, IV Titration 66.725 3.123 Amount Diltiazem 125 mg In 59.167 Sodium Chloride 0.9% 100 ml @ 5 MG/HR 5 mls/hr IV .Q24H [facility] Rx#:[id number] Insulin Regular 100 unit 7.558 3.123 In Sodium Chloride 0.9% 100 ml @ Per Protocol IV .Q0M [facility] Rx#:[id number] Oral 150 Albumin 250 500 Pressure Bags 250 500 Output: Chest Tube Drainage 310 470 0 Chest Tube Left Lateral 70 205 0 Chest Chest Tube Mediastinal 240 265 0 Drainage 20 20 Left Wrist 20 20 Urine 1345 620 50 Estimated Blood Loss 250 Other: Voiding Method Indwelling Catheter Indwelling Catheter ABP, PAP, CO, CI - Last Documented Arterial Blood Pressure 104/42 Pulmonary Artery Pressure 8/3 Cardiac Output 5.6 Cardiac Index 2.5 - Exam CONSTITUTIONAL: Sitting up to the bedside chair in the intensive care unit, appears comfortable, cooperative, no apparent acute distress. HEENT: Neck is supple, no JVD, no lymphadenopathy. Right IJ Cordis and Gunnison- Kathi catheter in place and functioning. RESPIRATORY: Lungs sounds essentially clear throughout, diminished to his bilateral bases, left greater than right. Respirations are symmetrical and nonlabored. Currently on 2 L nasal cannula with oxygen saturations 96%. Able t o achieve 1250 mL on their incentive spirometry. Strong cough. CARDIOVASCULAR: Regular rhythm and rate. S1 and S2 present, negative for S3, gallop or murmur. Bedside telemetry showing normal sinus rhythm heart rate 71 bpm. Sternum is stable. Palpable peripheral pulses bilaterally, trace edema to his bilateral lower extremities. No calf pain or tenderness noted. Heart hugger in place with patient demonstrating appropriate use. Knee-high DONTE hose and sequential compression devices in place to his bilateral lower extremities. GASTROINTESTINAL: Abdomen soft, nontender, nondistended. Hypoactive bowel sounds present 4 quadrants. Tolerating diet. Denies passing flatus. No guarding or rigidity. GENITOURINARY: Rincon present draining clear, yellow urine. Urine output 305 mL in the last 8 hours INTEGUMENTARY: Skin is warm and dry with no evidence of clubbing or cyanosis. Midline sternal incision clean dry and well approximated, covered with dry intact dressing. Right lower extremity EVH sites well approximated without redness or drainage. Left arm radial artery harvest sites clean, dry and approximated. No drainage or redness is present. NEUROLOGIC: Cranial nerves II through XII intact. No focal deficits. MUSKULOSKELETAL: Able to move all extremities, strength equal bilaterally, generalized weakness. PSYCHIATRIC: Alert and oriented to person place and time, appropriate affect, intact judgment and insight. INVASIVE LINES AND TUBES: Mediastinal/left pleural chest tubes present and connected to low continuous wall suction, no air leaks present. Mediastinal tube with 200 mL of thin serosanguineous drainage overnight, 500 mL output in the last 24 hours. Left pleural chest tube with 150 mL of thin serosanguineous drainage overnight, 250 mL output in the last 24 hours. Right internal jugular Gunnison/Cordis, right radial arterial line present. Last CO 5.6, CI 2.5, SVR 860, PA 11/6 and CVP 1 mmHg. Left arm JUAN JOSE drain in place with scant thin serosanguineous drainage, 20 mL output in the last 8 hours. - Allied health notes Allied health notes reviewed: nursing - Labs CBC & Chem 7: 09/29/24 04:20 09/29/24 04:20 Labs: Abnormal Lab Results - Last 24 Hours (Table) 09/25/24 09/28/24 09/28/24 Range/Units 12:07 08:49 10:23 WBC (3.8-10.6) k/uL RBC (4.30-5.90) m/uL Hgb (13.0-17.5) gm/dL Hct (39.0-53.0) % Neutrophils # (1.3-7.7) k/uL INR (<1.2) ABG pO2 148 H 179 H (83-108) mmHg ABG Total CO2 (19-24) mmol/L ABG O2 Saturation 99.3 H 98.8 H (94-97) % ABG Hematocrit 30 L (34.0-46.0) % ABG Ionized Calcium (4.5-5.3) mg/dL ABG Glucose 108 H (75-99) mg/dL Hemoglobin 11.1 L 9.7 L (13.0-17.5) gm/dL Sodium (137-145) mmol/L Carbon Dioxide (22-30) mmol/L Glucose (74-99) mg/dL POC Glucose (mg/dL) (70-110) mg/dL Calcium (8.4-10.2) mg/dL Total Protein (6.3-8.2) g/dL Arterial Blood Glucose 108 H (75-99) mg/dL Crossmatch See Detail 09/28/24 09/28/24 09/28/24 Range/Units 11:05 12:04 12:22 WBC (3.8-10.6) k/uL RBC (4.30-5.90) m/uL Hgb (13.0-17.5) gm/dL Hct (39.0-53.0) % Neutrophils # (1.3-7.7) k/uL INR (<1.2) ABG pO2 224 H 202 H 165 H (83-108) mmHg ABG Total CO2 (19-24) mmol/L ABG O2 Saturation >99.4 H 99.3 H 98.9 H (94-97) % ABG Hematocrit 30 L 26 L 26 L (34.0-46.0) % ABG Ionized Calcium 4.4 L 4.3 L (4.5-5.3) mg/dL ABG Glucose 114 H 110 H 114 H (75-99) mg/dL Hemoglobin 9.7 L 8.5 L 8.5 L (13.0-17.5) gm/dL Sodium (137-145) mmol/L Carbon Dioxide (22-30) mmol/L Glucose (74-99) mg/dL POC Glucose (mg/dL) (70-110) mg/dL Calcium (8.4-10.2) mg/dL Total Protein (6.3-8.2) g/dL Arterial Blood Glucose 114 H 110 H 114 H (75-99) mg/dL Crossmatch 09/28/24 09/28/24 09/28/24 Range/Units 13:24 13:24 13:24 WBC 14.8 H (3.8-10.6) k/uL RBC 2.93 L (4.30-5.90) m/uL Hgb 9.5 L D (13.0-17.5) gm/dL Hct 27.4 L (39.0-53.0) % Neutrophils # 10.5 H (1.3-7.7) k/uL INR 1.2 H (<1.2) ABG pO2 (83-108) mmHg ABG Total CO2 (19-24) mmol/L ABG O2 Saturation (94-97) % ABG Hematocrit (34.0-46.0) % ABG Ionized Calcium (4.5-5.3) mg/dL ABG Glucose (75-99) mg/dL Hemoglobin (13.0-17.5) gm/dL Sodium 134 L (137-145) mmol/L Carbon Dioxide 21 L (22-30) mmol/L Glucose 105 H (74-99) mg/dL POC Glucose (mg/dL) (70-110) mg/dL Calcium 8.0 L (8.4-10.2) mg/dL Total Protein 5.7 L (6.3-8.2) g/dL Arterial Blood Glucose (75-99) mg/dL Crossmatch 09/28/24 09/28/24 09/28/24 Range/Units 13:28 13:55 14:50 WBC (3.8-10.6) k/uL RBC (4.30-5.90) m/uL Hgb (13.0-17.5) gm/dL Hct (39.0-53.0) % Neutrophils # (1.3-7.7) k/uL INR (<1.2) ABG pO2 280 H (83-108) mmHg ABG Total CO2 25 H (19-24) mmol/L ABG O2 Saturation 100.0 H (94-97) % ABG Hematocrit (34.0-46.0) % ABG Ionized Calcium (4.5-5.3) mg/dL ABG Glucose (75-99) mg/dL Hemoglobin 9.5 L (13.0-17.5) gm/dL Sodium (137-145) mmol/L Carbon Dioxide (22-30) mmol/L Glucose (74-99) mg/dL POC Glucose (mg/dL) 115 H 132 H (70-110) mg/dL Calcium (8.4-10.2) mg/dL Total Protein (6.3-8.2) g/dL Arterial Blood Glucose (75-99) mg/dL Crossmatch 09/28/24 09/28/24 09/28/24 Range/Units 16:41 16:45 16:54 WBC 17.5 H (3.8-10.6) k/uL RBC 3.22 L (4.30-5.90) m/uL Hgb 10.1 L (13.0-17.5) gm/dL Hct 30.2 L (39.0-53.0) % Neutrophils # 12.4 H (1.3-7.7) k/uL INR (<1.2) ABG pO2 (83-108) mmHg ABG Total CO2 (19-24) mmol/L ABG O2 Saturation 98.3 H (94-97) % ABG Hematocrit (34.0-46.0) % ABG Ionized Calcium (4.5-5.3) mg/dL ABG Glucose (75-99) mg/dL Hemoglobin 10.1 L (13.0-17.5) gm/dL Sodium (137-145) mmol/L Carbon Dioxide (22-30) mmol/L Glucose (74-99) mg/dL POC Glucose (mg/dL) 127 H (70-110) mg/dL Calcium (8.4-10.2) mg/dL Total Protein (6.3-8.2) g/dL Arterial Blood Glucose (75-99) mg/dL Crossmatch 09/28/24 09/28/24 09/28/24 Range/Units 17:57 18:32 19:15 WBC 14.1 H (3.8-10.6) k/uL RBC 3.18 L (4.30-5.90) m/uL Hgb 10.1 L (13.0-17.5) gm/dL Hct 29.7 L (39.0-53.0) % Neutrophils # 10.3 H (1.3-7.7) k/uL INR (<1.2) ABG pO2 (83-108) mmHg ABG Total CO2 (19-24) mmol/L ABG O2 Saturation (94-97) % ABG Hematocrit (34.0-46.0) % ABG Ionized Calcium (4.5-5.3) mg/dL ABG Glucose (75-99) mg/dL Hemoglobin (13.0-17.5) gm/dL Sodium (137-145) mmol/L Carbon Dioxide (22-30) mmol/L Glucose (74-99) mg/dL POC Glucose (mg/dL) 133 H 130 H (70-110) mg/dL Calcium (8.4-10.2) mg/dL Total Protein (6.3-8.2) g/dL Arterial Blood Glucose (75-99) mg/dL Crossmatch 09/28/24 09/28/24 09/29/24 Range/Units 20:15 22:11 00:03 WBC (3.8-10.6) k/uL RBC (4.30-5.90) m/uL Hgb (13.0-17.5) gm/dL Hct (39.0-53.0) % Neutrophils # (1.3-7.7) k/uL INR (<1.2) ABG pO2 (83-108) mmHg ABG Total CO2 (19-24) mmol/L ABG O2 Saturation (94-97) % ABG Hematocrit (34.0-46.0) % ABG Ionized Calcium (4.5-5.3) mg/dL ABG Glucose (75-99) mg/dL Hemoglobin (13.0-17.5) gm/dL Sodium (137-145) mmol/L Carbon Dioxide (22-30) mmol/L Glucose (74-99) mg/dL POC Glucose (mg/dL) 128 H 131 H 126 H (70-110) mg/dL Calcium (8.4-10.2) mg/dL Total Protein (6.3-8.2) g/dL Arterial Blood Glucose (75-99) mg/dL Crossmatch 09/29/24 09/29/24 09/29/24 Range/Units 01:58 03:12 04:20 WBC 11.6 H (3.8-10.6) k/uL RBC 3.14 L (4.30-5.90) m/uL Hgb 9.8 L (13.0-17.5) gm/dL Hct 29.5 L (39.0-53.0) % Neutrophils # 8.0 H (1.3-7.7) k/uL INR (<1.2) ABG pO2 (83-108) mmHg ABG Total CO2 (19-24) mmol/L ABG O2 Saturation (94-97) % ABG Hematocrit (34.0-46.0) % ABG Ionized Calcium (4.5-5.3) mg/dL ABG Glucose (75-99) mg/dL Hemoglobin (13.0-17.5) gm/dL Sodium (137-145) mmol/L Carbon Dioxide (22-30) mmol/L Glucose (74-99) mg/dL POC Glucose (mg/dL) 118 H 128 H (70-110) mg/dL Calcium (8.4-10.2) mg/dL Total Protein (6.3-8.2) g/dL Arterial Blood Glucose (75-99) mg/dL Crossmatch 09/29/24 09/29/24 09/29/24 Range/Units 04:20 05:36 08:09 WBC (3.8-10.6) k/uL RBC (4.30-5.90) m/uL Hgb (13.0-17.5) gm/dL Hct (39.0-53.0) % Neutrophils # (1.3-7.7) k/uL INR (<1.2) ABG pO2 (83-108) mmHg ABG Total CO2 (19-24) mmol/L ABG O2 Saturation (94-97) % ABG Hematocrit (34.0-46.0) % ABG Ionized Calcium (4.5-5.3) mg/dL ABG Glucose (75-99) mg/dL Hemoglobin (13.0-17.5) gm/dL Sodium 134 L (137-145) mmol/L Carbon Dioxide (22-30) mmol/L Glucose 120 H (74-99) mg/dL POC Glucose (mg/dL) 117 H 147 H (70-110) mg/dL Calcium 8.3 L (8.4-10.2) mg/dL Total Protein 5.7 L (6.3-8.2) g/dL Arterial Blood Glucose (75-99) mg/dL Crossmatch - Imaging and Cardiology Chest x-ray: report reviewed, image reviewed Assessment and Plan Assessment: Multivessel coronary artery disease, status post off-pump coronary artery bypass grafting surgery x 3 vessels Postoperative acute blood loss anemia, expected given hemodilution Hypertension Dyslipidemia, treated, triglycerides 137, cholesterol 164, LDL 89 Hard of hearing Osteoarthritis Remote history of nicotine dependence quit smoking 30 years ago Plan: Will continue to maximize medical therapy with aspirin, statin, Plavix and beta-angie. Will increase metoprolol to tartrate as tolerated. Discontinue nitroglycerin and Cardizem drip. Will start amlodipine 2.5 mg p.o. daily at noon for radial artery spasm prophylaxis with hold parameters. Wean oxygen as tolerated. Encourage incentive spirometry use 10 times every hour while awake. Bronchodilators per pulmonology Increase activity as tolerated. PT/OT/cardiac rehab consulted. Start home dose of folic acid. GI/DVT prophylaxis. Will monitor daily labs and chest x-rays, electrolyte replacement per protocol. Pain control per current medication regimen. Start Toradol for additional pain control. Insulin management per internal medicine, patient is not diabetic, preoperative hemoglobin A1c 6.0%. Patient should remain on continuous IV insulin for minimum 48 hours, then may transition to subcutaneous per protocol Will remove right IJ Gunnison and catheter, keep right IJ cordis in place with continuous CVP monitoring. Continue right radial arterial line for another 24 hours. Continue chest tubes for another 24 hours, monitor output. Continue Rincon catheter for another 24 hours, continue to monitor strict accurate intake and output. More recommendations to follow based on patient's clinical course. Time with Patient: Greater than 30
[2024-09-29 10:09] LABS: Glucose,Whole Blood 123 mg/dL (70-110)
[2024-09-29] MEDS: FOLIC ACID 1 MG TAB PO SCH (10:52)
[2024-09-29 11:01] LABS: Glucose,Whole Blood 130 mg/dL (70-110)
--- NOTE | 2024-09-29 11:30 | P.PN ---
Subjective Progress Note Date: 09/29/24 This is an 79-year-old male patient with a known history of coronary artery disease who was brought in today electively for an off-pump coronary artery bypass grafting x 3. He received a CAMPO to the LAD, saphenous vein graft to the first diagonal, saphenous vein graft/left radial artery to the PDA. He did undergo left atrial appendage clipping. Postoperative day #0. He is seen upon his return to the intensive care unit. He is currently on the mechanical ventilator and assist-control mode at a rate of 14, tidal volume 550, FiO2 60% and a PEEP of 5. Arterial blood gases on 100% FiO2 revealed a PaO2 of 280, pCO2 of 39 and a pH of 7.39. White count 14.8. Hemoglobin 9.5. Platelet count 201. Glucose 115. Chest x-ray revealed appropriate placement of the endotracheal tube, nasogastric tube and Rest[place]-Kathi catheter. Left thoracotomy and mediastinal chest tubes in place. No evidence of pneumothorax. He is currently off the propofol. He remains on nitroglycerin drip at 5 mcg/min. Cardizem drip at 5 mg/h. Normal saline at 50 mL/h. Urine output is adequate. Cardiac output 5.7. Cardiac index 2.6. PA pressures 13/8. CVP 5. Sternal dressing is dry and intact. Heart hugger in place. Left radial site covered with Noam wrap. JUAN JOSE drain in place. Bilateral lower extremity Noam wraps in place. SCDs in place. He is initiated on DuoNeb inhalations. Heparin for DVT prophylaxis. The patient was seen today September 29, 2024 in follow-up. Postoperative day #1. He was extubated at approximately 5:30 last evening. He is currently sitting up in a chair at the bedside. Awake and alert in no acute distress. He is currently maintaining good O2 saturations in the 90s on 2 L/min per nasal cannula. He is afebrile. Hemodynamically stable. He remains on normal saline at 50 mL/h. Insulin drip at 1.5 units/h. He is working well with the incentive spirometer. Cardiac output 5.6. Cardiac index 2.5. PA pressure 13/8. CVP 3. Left and mediastinal chest tubes remain in place. Chest x-ray reveals postsurgical changes with blunting of the left costophrenic angle. White count 11.6. Hemoglobin 9.8. Platelets 222. Sodium 134. Potassium 3.9. Bicarb 25. BUN 14. Creatinine 0.71. Glucose 120. He continues to work well with the incentive spirometer. He remains on bronchodilators. Heparin for DVT prophylaxis. Objective - Vital Signs Vital signs: Vital Signs Temp 98.8 F 09/29/24 04:00 Pulse 78 09/29/24 11:00 Resp 17 09/29/24 11:00 BP 112/61 09/29/24 10:30 Pulse Ox 97 09/29/24 11:00 FiO2 45 09/28/24 17:00 Intake & Output 09/28/24 09/29/24 09/29/24 18:59 06:59 18:59 Intake Total 563 1374.725 693.412 Output Total 1905 1110 150 Balance -1342 264.725 543.412 Weight 93.4 kg Intake: IV 563 908 188 0.9 275 600 100 Injectate 130 200 20 Kefzol 100 Pressure Bags 54 108 18 ceFAZolin 2 gm In Sodium 50 Chloride 0.9% 50 ml @ 100 mls/hr IVPB Q8HR [facility] Rx# :[id number] Intake, IV Titration 66.725 5.412 Amount Diltiazem 125 mg In 59.167 Sodium Chloride 0.9% 100 ml @ 5 MG/HR 5 mls/hr IV .Q24H [facility] Rx#:[id number] Insulin Regular 100 unit 7.558 5.412 In Sodium Chloride 0.9% 100 ml @ Per Protocol IV .Q0M [facility] Rx#:[id number] Oral 150 Albumin 250 500 Pressure Bags 250 500 Output: Chest Tube Drainage 310 470 40 Chest Tube Left Lateral 70 205 10 Chest Chest Tube Mediastinal 240 265 30 Drainage 20 20 Left Wrist 20 20 Urine 1345 620 90 Estimated Blood Loss 250 Other: Voiding Method Indwelling Catheter Indwelling Catheter Indwelling Catheter ABP, PAP, CO, CI - Last Documented Arterial Blood Pressure 113/47 Pulmonary Artery Pressure 8/3 Cardiac Output 5.6 Cardiac Index 2.5 - Exam GENERAL EXAM: Awake, alert very pleasant 79-year-old male patient on 2 L/min per nasal cannula, in no apparent distress. HEAD: Normocephalic. EYES: Normal reaction of pupils, equal size. NOSE: Clear with pink turbinates. THROAT: No erythema or exudates. NECK: Right IJ Rest[place]-Kathi catheter in place. No masses, no JVD. CHEST: Sternal dressing dry and intact. Heart hugger in place. Left and mediastinal chest tubes in place to Pleur-evac and wall suction LUNGS: Equal air entry with no crackles, wheeze, rhonchi or dullness. CVS: S1 and S2 normal with no audible murmur, regular rhythm. ABDOMEN: No hepatosplenomegaly, hypoactive bowel sounds, no guarding or rigidity. SPINE: No scoliosis or deformity SKIN: No rashes CENTRAL NERVOUS SYSTEM: No focal deficits, tone is normal in all 4 extremities. EXTREMITIES: Left upper extremity a wrist wrap in place. JUAN JOSE drain in place. Bilateral lower extremity Noam wraps in place. SCDs in place. There is no peripheral edema. No clubbing, no cyanosis. Peripheral pulses are intact. - Labs CBC & Chem 7: 09/29/24 04:20 09/29/24 04:20 Labs: Abnormal Lab Results - Last 24 Hours (Table) 09/25/24 09/28/24 09/28/24 Range/Units 12:07 08:49 10:23 WBC (3.8-10.6) k/uL RBC (4.30-5.90) m/uL Hgb (13.0-17.5) gm/dL Hct (39.0-53.0) % Neutrophils # (1.3-7.7) k/uL INR (<1.2) ABG pO2 148 H 179 H (83-108) mmHg ABG Total CO2 (19-24) mmol/L ABG O2 Saturation 99.3 H 98.8 H (94-97) % ABG Hematocrit 30 L (34.0-46.0) % ABG Ionized Calcium (4.5-5.3) mg/dL ABG Glucose 108 H (75-99) mg/dL Hemoglobin 11.1 L 9.7 L (13.0-17.5) gm/dL Sodium (137-145) mmol/L Carbon Dioxide (22-30) mmol/L Glucose (74-99) mg/dL POC Glucose (mg/dL) (70-110) mg/dL Calcium (8.4-10.2) mg/dL Total Protein (6.3-8.2) g/dL Arterial Blood Glucose 108 H (75-99) mg/dL Crossmatch See Detail 09/28/24 09/28/24 09/28/24 Range/Units 11:05 12:04 12:22 WBC (3.8-10.6) k/uL RBC (4.30-5.90) m/uL Hgb (13.0-17.5) gm/dL Hct (39.0-53.0) % Neutrophils # (1.3-7.7) k/uL INR (<1.2) ABG pO2 224 H 202 H 165 H (83-108) mmHg ABG Total CO2 (19-24) mmol/L ABG O2 Saturation >99.4 H 99.3 H 98.9 H (94-97) % ABG Hematocrit 30 L 26 L 26 L (34.0-46.0) % ABG Ionized Calcium 4.4 L 4.3 L (4.5-5.3) mg/dL ABG Glucose 114 H 110 H 114 H (75-99) mg/dL Hemoglobin 9.7 L 8.5 L 8.5 L (13.0-17.5) gm/dL Sodium (137-145) mmol/L Carbon Dioxide (22-30) mmol/L Glucose (74-99) mg/dL POC Glucose (mg/dL) (70-110) mg/dL Calcium (8.4-10.2) mg/dL Total Protein (6.3-8.2) g/dL Arterial Blood Glucose 114 H 110 H 114 H (75-99) mg/dL Crossmatch 09/28/24 09/28/24 09/28/24 Range/Units 13:24 13:24 13:24 WBC 14.8 H (3.8-10.6) k/uL RBC 2.93 L (4.30-5.90) m/uL Hgb 9.5 L D (13.0-17.5) gm/dL Hct 27.4 L (39.0-53.0) % Neutrophils # 10.5 H (1.3-7.7) k/uL INR 1.2 H (<1.2) ABG pO2 (83-108) mmHg ABG Total CO2 (19-24) mmol/L ABG O2 Saturation (94-97) % ABG Hematocrit (34.0-46.0) % ABG Ionized Calcium (4.5-5.3) mg/dL ABG Glucose (75-99) mg/dL Hemoglobin (13.0-17.5) gm/dL Sodium 134 L (137-145) mmol/L Carbon Dioxide 21 L (22-30) mmol/L Glucose 105 H (74-99) mg/dL POC Glucose (mg/dL) (70-110) mg/dL Calcium 8.0 L (8.4-10.2) mg/dL Total Protein 5.7 L (6.3-8.2) g/dL Arterial Blood Glucose (75-99) mg/dL Crossmatch 09/28/24 09/28/24 09/28/24 Range/Units 13:28 13:55 14:50 WBC (3.8-10.6) k/uL RBC (4.30-5.90) m/uL Hgb (13.0-17.5) gm/dL Hct (39.0-53.0) % Neutrophils # (1.3-7.7) k/uL INR (<1.2) ABG pO2 280 H (83-108) mmHg ABG Total CO2 25 H (19-24) mmol/L ABG O2 Saturation 100.0 H (94-97) % ABG Hematocrit (34.0-46.0) % ABG Ionized Calcium (4.5-5.3) mg/dL ABG Glucose (75-99) mg/dL Hemoglobin 9.5 L (13.0-17.5) gm/dL Sodium (137-145) mmol/L Carbon Dioxide (22-30) mmol/L Glucose (74-99) mg/dL POC Glucose (mg/dL) 115 H 132 H (70-110) mg/dL Calcium (8.4-10.2) mg/dL Total Protein (6.3-8.2) g/dL Arterial Blood Glucose (75-99) mg/dL Crossmatch 09/28/24 09/28/24 09/28/24 Range/Units 16:41 16:45 16:54 WBC 17.5 H (3.8-10.6) k/uL RBC 3.22 L (4.30-5.90) m/uL Hgb 10.1 L (13.0-17.5) gm/dL Hct 30.2 L (39.0-53.0) % Neutrophils # 12.4 H (1.3-7.7) k/uL INR (<1.2) ABG pO2 (83-108) mmHg ABG Total CO2 (19-24) mmol/L ABG O2 Saturation 98.3 H (94-97) % ABG Hematocrit (34.0-46.0) % ABG Ionized Calcium (4.5-5.3) mg/dL ABG Glucose (75-99) mg/dL Hemoglobin 10.1 L (13.0-17.5) gm/dL Sodium (137-145) mmol/L Carbon Dioxide (22-30) mmol/L Glucose (74-99) mg/dL POC Glucose (mg/dL) 127 H (70-110) mg/dL Calcium (8.4-10.2) mg/dL Total Protein (6.3-8.2) g/dL Arterial Blood Glucose (75-99) mg/dL Crossmatch 09/28/24 09/28/24 09/28/24 Range/Units 17:57 18:32 19:15 WBC 14.1 H (3.8-10.6) k/uL RBC 3.18 L (4.30-5.90) m/uL Hgb 10.1 L (13.0-17.5) gm/dL Hct 29.7 L (39.0-53.0) % Neutrophils # 10.3 H (1.3-7.7) k/uL INR (<1.2) ABG pO2 (83-108) mmHg ABG Total CO2 (19-24) mmol/L ABG O2 Saturation (94-97) % ABG Hematocrit (34.0-46.0) % ABG Ionized Calcium (4.5-5.3) mg/dL ABG Glucose (75-99) mg/dL Hemoglobin (13.0-17.5) gm/dL Sodium (137-145) mmol/L Carbon Dioxide (22-30) mmol/L Glucose (74-99) mg/dL POC Glucose (mg/dL) 133 H 130 H (70-110) mg/dL Calcium (8.4-10.2) mg/dL Total Protein (6.3-8.2) g/dL Arterial Blood Glucose (75-99) mg/dL Crossmatch 09/28/24 09/28/24 09/29/24 Range/Units 20:15 22:11 00:03 WBC (3.8-10.6) k/uL RBC (4.30-5.90) m/uL Hgb (13.0-17.5) gm/dL Hct (39.0-53.0) % Neutrophils # (1.3-7.7) k/uL INR (<1.2) ABG pO2 (83-108) mmHg ABG Total CO2 (19-24) mmol/L ABG O2 Saturation (94-97) % ABG Hematocrit (34.0-46.0) % ABG Ionized Calcium (4.5-5.3) mg/dL ABG Glucose (75-99) mg/dL Hemoglobin (13.0-17.5) gm/dL Sodium (137-145) mmol/L Carbon Dioxide (22-30) mmol/L Glucose (74-99) mg/dL POC Glucose (mg/dL) 128 H 131 H 126 H (70-110) mg/dL Calcium (8.4-10.2) mg/dL Total Protein (6.3-8.2) g/dL Arterial Blood Glucose (75-99) mg/dL Crossmatch 09/29/24 09/29/24 09/29/24 Range/Units 01:58 03:12 04:20 WBC 11.6 H (3.8-10.6) k/uL RBC 3.14 L (4.30-5.90) m/uL Hgb 9.8 L (13.0-17.5) gm/dL Hct 29.5 L (39.0-53.0) % Neutrophils # 8.0 H (1.3-7.7) k/uL INR (<1.2) ABG pO2 (83-108) mmHg ABG Total CO2 (19-24) mmol/L ABG O2 Saturation (94-97) % ABG Hematocrit (34.0-46.0) % ABG Ionized Calcium (4.5-5.3) mg/dL ABG Glucose (75-99) mg/dL Hemoglobin (13.0-17.5) gm/dL Sodium (137-145) mmol/L Carbon Dioxide (22-30) mmol/L Glucose (74-99) mg/dL POC Glucose (mg/dL) 118 H 128 H (70-110) mg/dL Calcium (8.4-10.2) mg/dL Total Protein (6.3-8.2) g/dL Arterial Blood Glucose (75-99) mg/dL Crossmatch 09/29/24 09/29/24 09/29/24 Range/Units 04:20 05:36 08:09 WBC (3.8-10.6) k/uL RBC (4.30-5.90) m/uL Hgb (13.0-17.5) gm/dL Hct (39.0-53.0) % Neutrophils # (1.3-7.7) k/uL INR (<1.2) ABG pO2 (83-108) mmHg ABG Total CO2 (19-24) mmol/L ABG O2 Saturation (94-97) % ABG Hematocrit (34.0-46.0) % ABG Ionized Calcium (4.5-5.3) mg/dL ABG Glucose (75-99) mg/dL Hemoglobin (13.0-17.5) gm/dL Sodium 134 L (137-145) mmol/L Carbon Dioxide (22-30) mmol/L Glucose 120 H (74-99) mg/dL POC Glucose (mg/dL) 117 H 147 H (70-110) mg/dL Calcium 8.3 L (8.4-10.2) mg/dL Total Protein 5.7 L (6.3-8.2) g/dL Arterial Blood Glucose (75-99) mg/dL Crossmatch 09/29/24 09/29/24 09/29/24 Range/Units 08:56 10:07 11:00 WBC (3.8-10.6) k/uL RBC (4.30-5.90) m/uL Hgb (13.0-17.5) gm/dL Hct (39.0-53.0) % Neutrophils # (1.3-7.7) k/uL INR (<1.2) ABG pO2 (83-108) mmHg ABG Total CO2 (19-24) mmol/L ABG O2 Saturation (94-97) % ABG Hematocrit (34.0-46.0) % ABG Ionized Calcium (4.5-5.3) mg/dL ABG Glucose (75-99) mg/dL Hemoglobin (13.0-17.5) gm/dL Sodium (137-145) mmol/L Carbon Dioxide (22-30) mmol/L Glucose (74-99) mg/dL POC Glucose (mg/dL) 115 H 123 H 130 H (70-110) mg/dL Calcium (8.4-10.2) mg/dL Total Protein (6.3-8.2) g/dL Arterial Blood Glucose (75-99) mg/dL Crossmatch Assessment and Plan Assessment: Coronary artery disease status post coronary artery bypass grafting x 3, off- pump, received a CAMPO to the LAD, saphenous vein graft to the first diagonal, hybrid conduit saphenous vein/left radial arterial graft to the PDA. Left atria l appendage clipping. Postoperative day #1. Mechanical ventilator management, expected outcome of surgery. Recovered and currently on 2 L nasal cannula History of hypertension History of rheumatoid arthritis on methotrexate Remote history of smoking, quit over 30 years ago Plan: The patient was seen and evaluated Chest x-ray, labs and medications reviewed Titrate down the FiO2 as tolerated Continue bronchodilators Heparin for DVT prophylaxis We will continue to follow I have personally seen and examined the patient, performed the documentation and the assessment and plan as written. Number of minutes spent on the visit: 10 Dictation was produced using [employer] dictation software. Please excuse any grammatical, word or spelling errors.
--- NOTE | 2024-09-29 11:44 | P.CONS ---
History of Present Illness - Reason for Consult Consult date: 09/29/24 - Chief Complaint Medical management - History of Present Illness 79-year-old man with medical history of CAD, hypertension, hyperlipidemia, rheumatoid arthritis presented for evaluation of elective CABG. Patient was found to have multivessel disease during left heart cath in the outpatient sett ing and was referred for three-vessel coronary bypass grafting. Patient underwent successful surgery on 09/28 and medicine was consulted for medical management thereafter. Patient has no complaints at this time is doing well after extubation. Remains with 2 chest tubes, [place] catheter, [place] catheter, central line. Today patient is afebrile, 113/47, heart rate 78, 97% on 2 L of nasal cannula. Capillary sugars have been under control while on insulin drip. Chest x-ray today does demonstrate left-sided pleural effusion, overall congested lungs, widened mediastinum, [place] catheter is in place, mediastinal chest tube and left pleural chest tube are in good position. The patient is currently being treated with aspirin, Plavix, metoprolol, atorvastatin. Patient is also on DuoNebs. All Systems reviewed and pertinent positives and negatives noted in HPI, all other symptoms are negative Gen: In NAD, non-toxic HEENT: normocephalic, atraumatic, hearing acuity is intant, mucous membranes moist CVS: perfusing all extremities well, trace pitting edema, Respiratory: symmetric chest expansion, no accessory muscle use, GI: soft, NTTP, ND, : no suprapubic tenderness, no CVA tenderness MSK/Derm: no rashes, cyanosis Neuro: CN II-XII intact, no motor weakness, Psych: cooperative, euthymic mood, judgment and insight is intact Labs and imaging as above Assessment/plan: CAD status post CABG Hypertension Hyperlipidemia -CT surgery on board -Cardiology on board -Pulmonology on board -Continue insulin drip to keep sugars between 100-160 -Obtain A1c -Currently on metoprolol, amlodipine, aspirin, Plavix, statin Rheumatoid arthritis -Patient takes methotrexate at home, recommend resumption once cleared to do so by primary team Patient is full code Past Medical History Past Medical History: GERD/Reflux, Hearing Disorder / Deafness, Hyperlipidemia, Hypertension, Rheumatoid Arthritis (RA) Additional Past Medical History / Comment(s): Per [id number], on & off issues w/chest discomfort, dizzy, nausea, recently tested positive for Covid 09/09/24, no current symptoms, slight runny nose History of Any Multi-Drug Resistant Organisms: None Reported Past Surgical History: Heart Catheterization, Joint Replacement, Orthopedic Surgery Additional Past Surgical History / Comment(s): right shoulder rotator cuff, nura hand sx, bi lat cataract surgery. Left knee replacement Past Anesthesia/Blood Transfusion Reactions: No Reported Reaction Additional Past Anesthesia/Blood Transfusion Reaction / Comm: No hx of blood transfusion to date. Smoking Status: Former smoker - Past Family History Father Family Medical History: Hypertension Mother Family Medical History: Hypertension Medications and Allergies Home Medications Medication Instructions Recorded Confirmed Type Folic Acid 1 mg PO QAM 03/15/14 09/28/24 History metHOTREXate sodium [Methotrexate] 3 tab PO WE 03/15/14 09/28/24 History Atorvastatin [Lipitor] 40 mg PO QAM 12/10/17 09/28/24 History Losartan [Cozaar] 25 mg PO QAM 12/10/17 09/28/24 History Aspirin 81 mg PO QAM 09/18/24 09/28/24 History Metoprolol Succinate [Metoprolol 25 mg PO DAILY 30 Days #30 tab 09/21/24 09/28/24 Rx Succinate ER] Allergies Allergy/AdvReac Type Severity Reaction Status Date / Time No Known Allergies Allergy Verified 09/28/24 05:59 Physical Exam Osteopathic Statement: *. No significant issues noted on an osteopathic structural exam other than those noted in the History and Physical/Consult. Vitals: Vital Signs Temp Pulse Resp BP Pulse Ox FiO2 09/29/24 11:00 78 17 97 09/29/24 10:30 79 15 112/61 97 09/29/24 10:00 80 14 96 09/29/24 09:39 77 09/29/24 09:30 79 10 L 94 L 09/29/24 09:28 78 09/29/24 09:00 76 14 97 09/29/24 08:30 75 17 108/61 97 09/29/24 08:00 74 15 98/58 96 09/29/24 07:30 71 23 98/58 94 L 09/29/24 07:00 72 18 98/58 96 09/29/24 06:30 74 0 L 98/58 93 L 09/29/24 06:00 86 15 93 L 09/29/24 05:30 80 16 95 09/29/24 05:00 76 16 96 09/29/24 04:30 83 24 96 09/29/24 04:00 98.8 F 80 19 96 09/29/24 03:30 80 17 96 09/29/24 03:00 85 20 95 09/29/24 02:30 86 21 95 09/29/24 02:00 85 21 95 09/29/24 01:30 85 20 95 09/29/24 01:00 87 18 97 09/29/24 00:30 87 17 96 09/29/24 00:15 89 17 96 09/29/24 00:00 98.6 F 92 20 96 09/28/24 23:30 91 18 97 09/28/24 23:00 92 19 97 09/28/24 22:30 93 19 96 09/28/24 22:00 98.8 F 96 20 97 09/28/24 21:34 98 09/28/24 21:30 93 18 99 09/28/24 21:22 94 09/28/24 21:00 92 19 97 09/28/24 20:30 92 18 97 09/28/24 20:00 98.6 F 93 21 97 09/28/24 19:30 95 24 98 09/28/24 19:00 92 20 98 09/28/24 18:30 90 22 99 09/28/24 18:00 90 18 99 09/28/24 17:30 93 28 H 96 09/28/24 17:00 86 23 100 45 09/28/24 16:30 85 22 100 09/28/24 16:11 45 09/28/24 16:00 97.5 F L 81 19 98 45 09/28/24 15:36 45 09/28/24 15:31 60 09/28/24 15:30 79 18 100 09/28/24 15:20 71 15 98 09/28/24 15:10 73 16 100 09/28/24 15:00 73 17 100 09/28/24 14:50 73 17 100 09/28/24 14:40 76 13 100 09/28/24 14:30 96.1 F L 75 16 100 60 09/28/24 14:20 67 16 100 09/28/24 14:10 78 18 100 09/28/24 14:00 95.9 F L 66 9 L 100 09/28/24 13:59 60 09/28/24 13:50 69 4 L 100 09/28/24 13:40 78 15 100 09/28/24 13:30 95.5 F L 66 14 80 L 09/28/24 13:23 65 14 09/28/24 13:21 100 09/28/24 12:48 100 Intake and Output 09/28/24 09/29/24 09/29/24 22:59 06:59 14:59 Intake Total 732 1058.725 693.412 Output Total 1255 675 150 Balance -523 383.725 543.412 Intake: IV 732 592 188 0.9 400 400 100 Injectate 160 120 20 Kefzol 100 Pressure Bags 72 72 18 ceFAZolin 2 gm In Sodium 50 Chloride 0.9% 50 ml @ 100 mls/hr IVPB Q8HR [facility] Rx# :[id number] Intake, IV Titration 66.725 5.412 Amount Diltiazem 125 mg In 59.167 Sodium Chloride 0.9% 100 ml @ 5 MG/HR 5 mls/hr IV .Q24H [facility] Rx#:[id number] Insulin Regular 100 unit 7.558 5.412 In Sodium Chloride 0.9% 100 ml @ Per Protocol IV .Q0M [facility] Rx#:[id number] Oral 150 Albumin 250 500 Pressure Bags 250 500 Output: Chest Tube Drainage 345 350 40 Chest Tube Left Lateral 110 150 10 Chest Chest Tube Mediastinal 235 200 30 Drainage 20 20 Left Wrist 20 20 Urine 910 305 90 Other: Voiding Method Indwelling Catheter Indwelling Catheter Indwelling Catheter Weight 93.4 kg ABP, PAP, CO, CI - Last 8 Hours Arterial Blood Pressure 113/47 Arterial Blood Pressure 106/42 Arterial Blood Pressure 114/44 Arterial Blood Pressure 106/48 Arterial Blood Pressure 119/48 Arterial Blood Pressure 116/47 Arterial Blood Pressure 101/38 Arterial Blood Pressure 104/42 Arterial Blood Pressure 98/40 Arterial Blood Pressure 89/37 Arterial Blood Pressure 122/78 Arterial Blood Pressure 134/60 Arterial Blood Pressure 103/48 Arterial Blood Pressure 121/54 Arterial Blood Pressure 107/49 Arterial Blood Pressure 110/50 Pulmonary Artery Pressure 8/3 Pulmonary Artery Pressure 11/6 Pulmonary Artery Pressure 4/1 Pulmonary Artery Pressure 8/3 Pulmonary Artery Pressure 7/2 Pulmonary Artery Pressure 6/0 Pulmonary Artery Pressure 40/28 Pulmonary Artery Pressure 17/13 Pulmonary Artery Pressure 17/12 Pulmonary Artery Pressure 15/10 Pulmonary Artery Pressure 14/7 Pulmonary Artery Pressure 13/7 Cardiac Output 5.6 Cardiac Output 6.6 Cardiac Index 2.5 Cardiac Index 3 Results CBC & Chem 7: 09/29/24 04:20 09/29/24 04:20 Labs: Abnormal Lab Results - Last 24 Hours (Table) 09/25/24 09/28/24 09/28/24 Range/Units 12:07 08:49 10:23 WBC (3.8-10.6) k/uL RBC (4.30-5.90) m/uL Hgb (13.0-17.5) gm/dL Hct (39.0-53.0) % Neutrophils # (1.3-7.7) k/uL INR (<1.2) ABG pO2 148 H 179 H (83-108) mmHg ABG Total CO2 (19-24) mmol/L ABG O2 Saturation 99.3 H 98.8 H (94-97) % ABG Hematocrit 30 L (34.0-46.0) % ABG Ionized Calcium (4.5-5.3) mg/dL ABG Glucose 108 H (75-99) mg/dL Hemoglobin 11.1 L 9.7 L (13.0-17.5) gm/dL Sodium (137-145) mmol/L Carbon Dioxide (22-30) mmol/L Glucose (74-99) mg/dL POC Glucose (mg/dL) (70-110) mg/dL Calcium (8.4-10.2) mg/dL Total Protein (6.3-8.2) g/dL Arterial Blood Glucose 108 H (75-99) mg/dL Crossmatch See Detail 09/28/24 09/28/24 09/28/24 Range/Units 11:05 12:04 12:22 WBC (3.8-10.6) k/uL RBC (4.30-5.90) m/uL Hgb (13.0-17.5) gm/dL Hct (39.0-53.0) % Neutrophils # (1.3-7.7) k/uL INR (<1.2) ABG pO2 224 H 202 H 165 H (83-108) mmHg ABG Total CO2 (19-24) mmol/L ABG O2 Saturation >99.4 H 99.3 H 98.9 H (94-97) % ABG Hematocrit 30 L 26 L 26 L (34.0-46.0) % ABG Ionized Calcium 4.4 L 4.3 L (4.5-5.3) mg/dL ABG Glucose 114 H 110 H 114 H (75-99) mg/dL Hemoglobin 9.7 L 8.5 L 8.5 L (13.0-17.5) gm/dL Sodium (137-145) mmol/L Carbon Dioxide (22-30) mmol/L Glucose (74-99) mg/dL POC Glucose (mg/dL) (70-110) mg/dL Calcium (8.4-10.2) mg/dL Total Protein (6.3-8.2) g/dL Arterial Blood Glucose 114 H 110 H 114 H (75-99) mg/dL Crossmatch 09/28/24 09/28/24 09/28/24 Range/Units 13:24 13:24 13:24 WBC 14.8 H (3.8-10.6) k/uL RBC 2.93 L (4.30-5.90) m/uL Hgb 9.5 L D (13.0-17.5) gm/dL Hct 27.4 L (39.0-53.0) % Neutrophils # 10.5 H (1.3-7.7) k/uL INR 1.2 H (<1.2) ABG pO2 (83-108) mmHg ABG Total CO2 (19-24) mmol/L ABG O2 Saturation (94-97) % ABG Hematocrit (34.0-46.0) % ABG Ionized Calcium (4.5-5.3) mg/dL ABG Glucose (75-99) mg/dL Hemoglobin (13.0-17.5) gm/dL Sodium 134 L (137-145) mmol/L Carbon Dioxide 21 L (22-30) mmol/L Glucose 105 H (74-99) mg/dL POC Glucose (mg/dL) (70-110) mg/dL Calcium 8.0 L (8.4-10.2) mg/dL Total Protein 5.7 L (6.3-8.2) g/dL Arterial Blood Glucose (75-99) mg/dL Crossmatch 09/28/24 09/28/24 09/28/24 Range/Units 13:28 13:55 14:50 WBC (3.8-10.6) k/uL RBC (4.30-5.90) m/uL Hgb (13.0-17.5) gm/dL Hct (39.0-53.0) % Neutrophils # (1.3-7.7) k/uL INR (<1.2) ABG pO2 280 H (83-108) mmHg ABG Total CO2 25 H (19-24) mmol/L ABG O2 Saturation 100.0 H (94-97) % ABG Hematocrit (34.0-46.0) % ABG Ionized Calcium (4.5-5.3) mg/dL ABG Glucose (75-99) mg/dL Hemoglobin 9.5 L (13.0-17.5) gm/dL Sodium (137-145) mmol/L Carbon Dioxide (22-30) mmol/L Glucose (74-99) mg/dL POC Glucose (mg/dL) 115 H 132 H (70-110) mg/dL Calcium (8.4-10.2) mg/dL Total Protein (6.3-8.2) g/dL Arterial Blood Glucose (75-99) mg/dL Crossmatch 09/28/24 09/28/24 09/28/24 Range/Units 16:41 16:45 16:54 WBC 17.5 H (3.8-10.6) k/uL RBC 3.22 L (4.30-5.90) m/uL Hgb 10.1 L (13.0-17.5) gm/dL Hct 30.2 L (39.0-53.0) % Neutrophils # 12.4 H (1.3-7.7) k/uL INR (<1.2) ABG pO2 (83-108) mmHg ABG Total CO2 (19-24) mmol/L ABG O2 Saturation 98.3 H (94-97) % ABG Hematocrit (34.0-46.0) % ABG Ionized Calcium (4.5-5.3) mg/dL ABG Glucose (75-99) mg/dL Hemoglobin 10.1 L (13.0-17.5) gm/dL Sodium (137-145) mmol/L Carbon Dioxide (22-30) mmol/L Glucose (74-99) mg/dL POC Glucose (mg/dL) 127 H (70-110) mg/dL Calcium (8.4-10.2) mg/dL Total Protein (6.3-8.2) g/dL Arterial Blood Glucose (75-99) mg/dL Crossmatch 09/28/24 09/28/24 09/28/24 Range/Units 17:57 18:32 19:15 WBC 14.1 H (3.8-10.6) k/uL RBC 3.18 L (4.30-5.90) m/uL Hgb 10.1 L (13.0-17.5) gm/dL Hct 29.7 L (39.0-53.0) % Neutrophils # 10.3 H (1.3-7.7) k/uL INR (<1.2) ABG pO2 (83-108) mmHg ABG Total CO2 (19-24) mmol/L ABG O2 Saturation (94-97) % ABG Hematocrit (34.0-46.0) % ABG Ionized Calcium (4.5-5.3) mg/dL ABG Glucose (75-99) mg/dL Hemoglobin (13.0-17.5) gm/dL Sodium (137-145) mmol/L Carbon Dioxide (22-30) mmol/L Glucose (74-99) mg/dL POC Glucose (mg/dL) 133 H 130 H (70-110) mg/dL Calcium (8.4-10.2) mg/dL Total Protein (6.3-8.2) g/dL Arterial Blood Glucose (75-99) mg/dL Crossmatch 09/28/24 09/28/24 09/29/24 Range/Units 20:15 22:11 00:03 WBC (3.8-10.6) k/uL RBC (4.30-5.90) m/uL Hgb (13.0-17.5) gm/dL Hct (39.0-53.0) % Neutrophils # (1.3-7.7) k/uL INR (<1.2) ABG pO2 (83-108) mmHg ABG Total CO2 (19-24) mmol/L ABG O2 Saturation (94-97) % ABG Hematocrit (34.0-46.0) % ABG Ionized Calcium (4.5-5.3) mg/dL ABG Glucose (75-99) mg/dL Hemoglobin (13.0-17.5) gm/dL Sodium (137-145) mmol/L Carbon Dioxide (22-30) mmol/L Glucose (74-99) mg/dL POC Glucose (mg/dL) 128 H 131 H 126 H (70-110) mg/dL Calcium (8.4-10.2) mg/dL Total Protein (6.3-8.2) g/dL Arterial Blood Glucose (75-99) mg/dL Crossmatch 09/29/24 09/29/24 09/29/24 Range/Units 01:58 03:12 04:20 WBC 11.6 H (3.8-10.6) k/uL RBC 3.14 L (4.30-5.90) m/uL Hgb 9.8 L (13.0-17.5) gm/dL Hct 29.5 L (39.0-53.0) % Neutrophils # 8.0 H (1.3-7.7) k/uL INR (<1.2) ABG pO2 (83-108) mmHg ABG Total CO2 (19-24) mmol/L ABG O2 Saturation (94-97) % ABG Hematocrit (34.0-46.0) % ABG Ionized Calcium (4.5-5.3) mg/dL ABG Glucose (75-99) mg/dL Hemoglobin (13.0-17.5) gm/dL Sodium (137-145) mmol/L Carbon Dioxide (22-30) mmol/L Glucose (74-99) mg/dL POC Glucose (mg/dL) 118 H 128 H (70-110) mg/dL Calcium (8.4-10.2) mg/dL Total Protein (6.3-8.2) g/dL Arterial Blood Glucose (75-99) mg/dL Crossmatch 09/29/24 09/29/24 09/29/24 Range/Units 04:20 05:36 08:09 WBC (3.8-10.6) k/uL RBC (4.30-5.90) m/uL Hgb (13.0-17.5) gm/dL Hct (39.0-53.0) % Neutrophils # (1.3-7.7) k/uL INR (<1.2) ABG pO2 (83-108) mmHg ABG Total CO2 (19-24) mmol/L ABG O2 Saturation (94-97) % ABG Hematocrit (34.0-46.0) % ABG Ionized Calcium (4.5-5.3) mg/dL ABG Glucose (75-99) mg/dL Hemoglobin (13.0-17.5) gm/dL Sodium 134 L (137-145) mmol/L Carbon Dioxide (22-30) mmol/L Glucose 120 H (74-99) mg/dL POC Glucose (mg/dL) 117 H 147 H (70-110) mg/dL Calcium 8.3 L (8.4-10.2) mg/dL Total Protein 5.7 L (6.3-8.2) g/dL Arterial Blood Glucose (75-99) mg/dL Crossmatch 09/29/24 09/29/24 09/29/24 Range/Units 08:56 10:07 11:00 WBC (3.8-10.6) k/uL RBC (4.30-5.90) m/uL Hgb (13.0-17.5) gm/dL Hct (39.0-53.0) % Neutrophils # (1.3-7.7) k/uL INR (<1.2) ABG pO2 (83-108) mmHg ABG Total CO2 (19-24) mmol/L ABG O2 Saturation (94-97) % ABG Hematocrit (34.0-46.0) % ABG Ionized Calcium (4.5-5.3) mg/dL ABG Glucose (75-99) mg/dL Hemoglobin (13.0-17.5) gm/dL Sodium (137-145) mmol/L Carbon Dioxide (22-30) mmol/L Glucose (74-99) mg/dL POC Glucose (mg/dL) 115 H 123 H 130 H (70-110) mg/dL Calcium (8.4-10.2) mg/dL Total Protein (6.3-8.2) g/dL Arterial Blood Glucose (75-99) mg/dL Crossmatch
[2024-09-29] MEDS ORDERED: ACETAMINOPHEN TAB 500 MG TAB PO PRN (12:00)
[2024-09-29 12:07] LABS: Glucose,Whole Blood 117 mg/dL (70-110)
[2024-09-29] MEDS: KETOROLAC 15 MG/ML 1 ML VIAL IVP SCH (12:12)
[2024-09-29 13:06] LABS: Glucose,Whole Blood 105 mg/dL (70-110)
[2024-09-29] MEDS: amLODIPine 2.5 MG TAB PO SCH (13:45)
--- NOTE | 2024-09-29 15:58 | P.PN ---
Subjective This is a pleasant 79 year-old with past medical history significant for hypertension, hyperlipidemia, mild ascending aortic aneurysm 4.0cm, multivessel CAD and remote tobacco abuse who presented for elective CABG. Patient follows in the office with Dr Blue. He has been noting exertional chest pain and dyspnea with exertion over the last 2-3 months and had workup including echo which showed preserved EF 55% and stress echo which showed inducible ischemia. He underwent diagnostic LHC which showed a multivessel CAD 80-90% LAD, circumflex and RCA disease. He underwent successful CABG x 3 and RODRI ligation today with CAMPO to LAD, SVG to diagonal and hybrid SVG/radial to PDA. He is currently intubated and sedated however able to nod his head to answer some questions. He is on a nitro and cardizem drip. He is off of pressors. He is in normal sinus rhythm. Xray shows appropriate lines and small left pleural effusion. 09/29 patient seen and examined. Patient denies any chest pain or pressure. Does not have much of an appetite. Has been off of any vasopressors. Hemoglobin 9.8, creatinine 0.7. PHYSICAL EXAMINATION Vital signs reviewed. CONSTITUTIONAL: No apparent distress, intubated and sedated. HEENT: Head is normocephalic. Pupils are equal, round. Sclerae anicteric. Mucous membranes of the mouth are moist. No JVD. No carotid bruit. CHEST EXAMINATION: Lungs are clear to auscultation. HEART EXAMINATION: Regular rate and rhythm. S1, S2 heard. No murmurs, gallops or rub. ABDOMEN: Soft, nontender. Positive bowel sounds. EXTREMITIES: 2+ peripheral pulses, no lower extremity edema and no calf tenderness. NEUROLOGIC EXAMINATION: Patient is somnomlent on vent but able to answer some questions ASSESSMENT CAD s/p CABG x 3 09/28 Hypertension Hyperlipidemia Mild ascending aortic aneurysm 4.0 cm Remote tobacco abuse PLAN Continue with current regimen including aspirin Plavix, amiodarone, Metoprolol. Wean ventillator as able Patient continues to progress. Monitor blood pressure and ins and outs closely. Continue with current supportive care. Objective - Vital Signs Vital signs: Vital Signs Temp 98.0 F 09/29/24 12:00 Pulse 78 09/29/24 15:00 Resp 11 L 09/29/24 15:00 BP 112/61 09/29/24 10:30 Pulse Ox 96 11/19/24 15:00 FiO2 45 09/28/24 17:00 Intake & Output 09/28/24 09/29/24 09/29/24 18:59 06:59 18:59 Intake Total 563 1374.725 895.574 Output Total 1905 1110 330 Balance -1342 264.725 565.574 Weight 93.4 kg 93.4 kg Intake: IV 563 908 389 0.9 275 600 230 Injectate 130 200 20 Kefzol 100 50 Pressure Bags 54 108 39 ceFAZolin 2 gm In Sodium 50 Chloride 0.9% 50 ml @ 100 mls/hr IVPB Q8HR [facility] Rx# :[id number] Intake, IV Titration 66.725 6.574 Amount Diltiazem 125 mg In 59.167 Sodium Chloride 0.9% 100 ml @ 5 MG/HR 5 mls/hr IV .Q24H [facility] Rx#:[id number] Insulin Regular 100 unit 7.558 6.574 In Sodium Chloride 0.9% 100 ml @ Per Protocol IV .Q0M [facility] Rx#:[id number] Oral 150 Albumin 250 500 Pressure Bags 250 500 Output: Chest Tube Drainage 310 470 100 Chest Tube Left Lateral 70 205 40 Chest Chest Tube Mediastinal 240 265 60 Drainage 20 20 Left Wrist 20 20 Urine 1345 620 210 Estimated Blood Loss 250 Other: Voiding Method Indwelling Catheter Indwelling Catheter Indwelling Catheter ABP, PAP, CO, CI - Last Documented Arterial Blood Pressure 106/44 Pulmonary Artery Pressure 8/3 Cardiac Output 5.6 Cardiac Index 2.5 - Labs CBC & Chem 7: 09/29/24 04:20 09/29/24 04:20 Labs: Abnormal Lab Results - Last 24 Hours (Table) 09/25/24 09/28/24 09/28/24 Range/Units 12:07 16:41 16:45 WBC 17.5 H (3.8-10.6) k/uL RBC 3.22 L (4.30-5.90) m/uL Hgb 10.1 L (13.0-17.5) gm/dL Hct 30.2 L (39.0-53.0) % Neutrophils # 12.4 H (1.3-7.7) k/uL ABG O2 Saturation (94-97) % Hemoglobin (13.0-17.5) gm/dL Sodium (137-145) mmol/L Glucose (74-99) mg/dL POC Glucose (mg/dL) 127 H (70-110) mg/dL Calcium (8.4-10.2) mg/dL Total Protein (6.3-8.2) g/dL Crossmatch See Detail 09/28/24 09/28/24 09/28/24 Range/Units 16:54 17:57 18:32 WBC (3.8-10.6) k/uL RBC (4.30-5.90) m/uL Hgb (13.0-17.5) gm/dL Hct (39.0-53.0) % Neutrophils # (1.3-7.7) k/uL ABG O2 Saturation 98.3 H (94-97) % Hemoglobin 10.1 L (13.0-17.5) gm/dL Sodium (137-145) mmol/L Glucose (74-99) mg/dL POC Glucose (mg/dL) 133 H 130 H (70-110) mg/dL Calcium (8.4-10.2) mg/dL Total Protein (6.3-8.2) g/dL Crossmatch 09/28/24 09/28/24 09/28/24 Range/Units 19:15 20:15 22:11 WBC 14.1 H (3.8-10.6) k/uL RBC 3.18 L (4.30-5.90) m/uL Hgb 10.1 L (13.0-17.5) gm/dL Hct 29.7 L (39.0-53.0) % Neutrophils # 10.3 H (1.3-7.7) k/uL ABG O2 Saturation (94-97) % Hemoglobin (13.0-17.5) gm/dL Sodium (137-145) mmol/L Glucose (74-99) mg/dL POC Glucose (mg/dL) 128 H 131 H (70-110) mg/dL Calcium (8.4-10.2) mg/dL Total Protein (6.3-8.2) g/dL Crossmatch 09/29/24 09/29/24 09/29/24 Range/Units 00:03 01:58 03:12 WBC (3.8-10.6) k/uL RBC (4.30-5.90) m/uL Hgb (13.0-17.5) gm/dL Hct (39.0-53.0) % Neutrophils # (1.3-7.7) k/uL ABG O2 Saturation (94-97) % Hemoglobin (13.0-17.5) gm/dL Sodium (137-145) mmol/L Glucose (74-99) mg/dL POC Glucose (mg/dL) 126 H 118 H 128 H (70-110) mg/dL Calcium (8.4-10.2) mg/dL Total Protein (6.3-8.2) g/dL Crossmatch 09/29/24 09/29/24 09/29/24 Range/Units 04:20 04:20 05:36 WBC 11.6 H (3.8-10.6) k/uL RBC 3.14 L (4.30-5.90) m/uL Hgb 9.8 L (13.0-17.5) gm/dL Hct 29.5 L (39.0-53.0) % Neutrophils # 8.0 H (1.3-7.7) k/uL ABG O2 Saturation (94-97) % Hemoglobin (13.0-17.5) gm/dL Sodium 134 L (137-145) mmol/L Glucose 120 H (74-99) mg/dL POC Glucose (mg/dL) 117 H (70-110) mg/dL Calcium 8.3 L (8.4-10.2) mg/dL Total Protein 5.7 L (6.3-8.2) g/dL Crossmatch 09/29/24 09/29/24 09/29/24 Range/Units 08:09 08:56 10:07 WBC (3.8-10.6) k/uL RBC (4.30-5.90) m/uL Hgb (13.0-17.5) gm/dL Hct (39.0-53.0) % Neutrophils # (1.3-7.7) k/uL ABG O2 Saturation (94-97) % Hemoglobin (13.0-17.5) gm/dL Sodium (137-145) mmol/L Glucose (74-99) mg/dL POC Glucose (mg/dL) 147 H 115 H 123 H (70-110) mg/dL Calcium (8.4-10.2) mg/dL Total Protein (6.3-8.2) g/dL Crossmatch 09/29/24 09/29/24 Range/Units 11:00 12:06 WBC (3.8-10.6) k/uL RBC (4.30-5.90) m/uL Hgb (13.0-17.5) gm/dL Hct (39.0-53.0) % Neutrophils # (1.3-7.7) k/uL ABG O2 Saturation (94-97) % Hemoglobin (13.0-17.5) gm/dL Sodium (137-145) mmol/L Glucose (74-99) mg/dL POC Glucose (mg/dL) 130 H 117 H (70-110) mg/dL Calcium (8.4-10.2) mg/dL Total Protein (6.3-8.2) g/dL Crossmatch
[2024-09-29 17:06] LABS: Glucose,Whole Blood 108 mg/dL (70-110)
[2024-09-29 18:00] LABS: Glucose,Whole Blood 131 mg/dL (70-110)
[2024-09-29 18:56] LABS: Glucose,Whole Blood 120 mg/dL (70-110)
[2024-09-29 20:05] LABS: Glucose,Whole Blood 108 mg/dL (70-110)
[2024-09-29] MEDS: SENNOSIDES-DOCUSATE SODIUM 1 EACH TAB PO SCH (20:07)
[2024-09-29 21:04] LABS: Glucose,Whole Blood 109 mg/dL (70-110)
[2024-09-29 22:00] LABS: Glucose,Whole Blood 110 mg/dL (70-110)
[2024-09-30 00:07] LABS: Glucose,Whole Blood 125 mg/dL (70-110)
[2024-09-30 02:06] LABS: Glucose,Whole Blood 108 mg/dL (70-110)
[2024-09-30] MEDS: DEXTROSE 5% IN WATER 100 ML with AMIODARONE 150 MG IV PRN (04:40)
[2024-09-30 05:12] LABS: Glucose,Whole Blood 151 mg/dL (70-110)
[2024-09-30] MEDS: AMIODARONE 360 MG in DEXTROSE 5% IN WATER 200 ML IV PRN (05:15)
[2024-09-30 06:54] LABS: Glucose,Whole Blood 117 mg/dL (70-110)
[2024-09-30 07:35] LABS: Basophils % (A) 0 %; Eosinophils % (A) 0 %; HCT 28.8 % (39.0-53.0); HGB 9.4 gm/dL (13.0-17.5); Lymphocytes # (A) 2.9 k/uL (1.0-4.8); Lymphocytes % (A) 23 %; MCH 30.7 pg (25.0-35.0); MCHC 32.6 g/dL (31.0-37.0); MCV 94.4 fL (80.0-100.0); Mean Platelet Volume 7.3; Monocytes # (A) 0.6 k/uL (0-1.0); Monocytes % (A) 5 %; Neutrophils # (A) 8.7 k/uL (1.3-7.7); Neutrophils % (A) 70 %; Platelet Count 208 k/uL (150-450); RBC 3.06 m/uL (4.30-5.90); WBC 12.5 k/uL (3.8-10.6)
[2024-09-30 07:40] LABS: Ionized Calcium 4.9 mg/dL (4.5-5.3)
[2024-09-30] MEDS: FUROSEMIDE 10 MG/ML 2 ML VIAL IV ONE (07:47)
[2024-09-30 07:59] LABS: ALT 15 U/L (4-49); AST 27 U/L (17-59); African American GFR (CKD) >90 (>60 ml/min/1.73 sqM); Albumin 3.6 g/dL (3.5-5.0); Alkaline Phosphatase 68 U/L (38-126); Anion Gap 5 mmol/L; Blood Urea Nitrogen 16 mg/dL (9-20); Calcium 8.5 mg/dL (8.4-10.2); Carbon Dioxide 24 mmol/L (22-30); Chloride 100 mmol/L (98-107); Glucose 107 mg/dL (74-99); Magnesium 2.2 mg/dL (1.6-2.3); Non-African American GFR(CKD) 82 (>60 ml/min/1.73 sqM); Potassium 4.3 mmol/L (3.5-5.1); Sodium 129 mmol/L (137-145); Total Bilirubin 0.9 mg/dL (0.2-1.3); Total Protein 5.6 g/dL (6.3-8.2)
[2024-09-30 08:11] LABS: Glucose,Whole Blood 109 mg/dL (70-110)
--- NOTE | 2024-09-30 08:20 | XR ---
EXAMINATION TYPE: XR chest 1V portable DATE OF EXAM: 09/30/2024 5:22 AM COMPARISON: Chest radiographs from 09/29/2024 CLINICAL INDICATION: Male, 79 years old with history of Post Operative Cardiac Surgery; [facility] TECHNIQUE: XR chest 1V portable Frontal view of the chest. FINDINGS: Lungs/Pleura: There is no evidence of pleural effusion, focal consolidation, or pneumothorax. Pulmonary vascularity: Unremarkable. Heart/mediastinum: Cardiomediastinal silhouette is unremarkable. Musculoskeletal: No acute osseous pathology. Other findings: None Lines/Tubes: Interval removal of the endotracheal tube. Interval removal of the enteric tube, Drainage tubes with tips projecting over the mediastinum. Left thoracotomy tube is present without evidence of pneumothorax. IMPRESSION: Stable post surgical change with blunting of the left costophrenic angle. [facility], , 09/30/2024 8:17 AM
[2024-09-30] MEDS: METOPROLOL TARTRATE 25 MG TAB PO SCH (08:34)
[2024-09-30] MEDS: PANTOPRAZOLE 40 MG TABLET PO SCH (08:35)
--- NOTE | 2024-09-30 08:42 | P.PN ---
Subjective Progress Note Date: 09/30/24 Principal diagnosis: Coronary artery disease. Past medical history significant for hypertension, dyslipidemia, osteoarthritis, hard of hearing and a remote history of nicotine dependence quit smoking 30 years ago. POD #2 off-pump coronary artery bypass grafting x 3 with CAMPO to LAD, saphenous vein graft to first diagonal, hybrid conduit saphenous vein/left radial artery to posterior descending coronary artery, EVH of the left greater saphenous vein from the left thigh, endoscopic harvest of the left radial artery, ligation of the left atrial appendage with a 40 mm AtriCure clip. Postoperative acute blood loss anemia, expected given hemodilution. The patient was seen and examined in follow-up today September 30, 2024 at his bedside in the intensive care unit. He is currently sitting up to the bedside chair, is awake, alert, oriented x 3 and is in no acute apparent distress. Denies any complaints of pain or shortness of breath at this time and also denies any further complaints of nausea. Oxygen saturations are 97% on 2 L nasal cannula and he is achieving 1500 mL on his incentive spirometry with encouragement. The patient did go into atrial fibrillation around 4:30 AM this morning and was started on amiodarone drip per protocol and was given Lasix 20 mg IV x 1. The patient remains in atrial fibrillation at this time with a heart rate of 85 bpm. Mediastinal and left pleural chest tubes remain in place to low continuous wall suction -20 cm H2O. No air leak is present. Draining thin serosanguineous drainage. Mediastinal chest tube drained 70 mL output in the last 8 hours and 260 mL out in the last 24 hours left pleural chest tube drained 70 mL in the last 8 hours and 250 mL output in the last 24 hours. Right IJ cordis remains in place with continuous CVP monitoring, current CVP pressure 7 mmHg. Laboratory and chest x-ray results were reviewed. Objective - Vital Signs Vital signs: Vital Signs Temp 98.2 F 09/30/24 00:00 Pulse 89 09/30/24 00:00 Resp 15 09/30/24 00:00 BP 121/93 09/29/24 22:30 Pulse Ox 97 09/30/24 00:00 FiO2 45 09/28/24 17:00 Intake & Output 09/29/24 09/30/24 09/30/24 18:59 06:59 18:59 Intake Total 1720.057 757.044 Output Total 720 725 Balance 1000.057 32.044 Weight 93.4 kg 100.2 kg Intake: IV 711 506 0.9 510 440 Injectate 20 Kefzol 50 Pressure Bags 81 66 ceFAZolin 2 gm In Sodium 50 Chloride 0.9% 50 ml @ 100 mls/hr IVPB Q8HR [facility] Rx# :[id number] Intake, IV Titration 9.057 1.044 Amount Insulin Regular 100 unit 9.057 1.044 In Sodium Chloride 0.9% 100 ml @ Per Protocol IV .Q0M [facility] Rx#:[id number] Oral 500 250 Albumin 500 Pressure Bags 500 Output: Chest Tube Drainage 230 260 Chest Tube Left Lateral 80 140 Chest Chest Tube Mediastinal 150 120 Drainage 20 Left Wrist 20 Urine 470 465 Other: Voiding Method Indwelling Catheter Indwelling Catheter ABP, PAP, CO, CI - Last Documented Arterial Blood Pressure 101/41 Pulmonary Artery Pressure 8/3 Cardiac Output 5.6 Cardiac Index 2.5 - Exam CONSTITUTIONAL: Sitting up to the bedside chair in the intensive care unit, appears comfortable, cooperative, no apparent acute distress. HEENT: Neck is supple, no JVD, no lymphadenopathy. Right IJ Cordis in place and functioning. RESPIRATORY: Lungs sounds essentially clear throughout, diminished to his bilateral bases, left greater than right. Respirations are symmetrical and nonlabored. Currently on 2 L nasal cannula with oxygen saturations 97%. Able to achieve 1500 mL on his incentive spirometry. Strong cough. CARDIOVASCULAR: Irregular rhythm and controlled rate. S1 and S2 present, negative for S3, gallop or murmur. Bedside telemetry atrial fibrillation heart rate 85 bpm. Sternum is stable. Palpable peripheral pulses bilaterally, trace edema to his bilateral lower extremities. No calf pain or tenderness noted. Heart hugger in place with patient demonstrating appropriate use. Knee-high DONTE hose and sequential compression devices in place to his bilateral lower extremities. GASTROINTESTINAL: Abdomen soft, nontender, nondistended. Active bowel sounds present 4 quadrants. Tolerating diet. Passing flatus. No guarding or rigidity. GENITOURINARY: Rincon present draining clear, yellow urine. Urine output 305 mL in the last 8 hours INTEGUMENTARY: Skin is warm and dry with no evidence of clubbing or cyanosis. Midline sternal incision clean dry and well approximated, covered with dry intact dressing. Right lower extremity EVH sites well approximated without redness or drainage. Left arm radial artery harvest sites clean, dry and approximated. No drainage or redness is present. NEUROLOGIC: Cranial nerves II through XII intact. No focal deficits. MUSKULOSKELETAL: Able to move all extremities, strength equal bilaterally, generalized weakness. PSYCHIATRIC: Alert and oriented to person place and time, appropriate affect, intact judgment and insight. INVASIVE LINES AND TUBES: Mediastinal/left pleural chest tubes present and connected to low continuous wall suction, no air leaks present. Mediastinal tube with 70 mL of thin serosanguineous drainage overnight, 260 mL output in the last 24 hours. Left pleural chest tube with 70 mL of thin serosanguineous drainage overnight, 250 mL output in the last 24 hours. Right internal jugular Cordis, right radial arterial line present. Current CVP pressure 7 mmHg. - Allied health notes Allied health notes reviewed: nursing - Labs CBC & Chem 7: 09/30/24 07:28 09/30/24 07:28 Labs: Abnormal Lab Results - Last 24 Hours (Table) 09/29/24 09/29/24 09/29/24 Range/Units 08:09 08:56 10:07 POC Glucose (mg/dL) 147 H 115 H 123 H (70-110) mg/dL 09/29/24 09/29/24 09/29/24 Range/Units 11:00 12:06 17:59 POC Glucose (mg/dL) 130 H 117 H 131 H (70-110) mg/dL 09/29/24 09/30/24 09/30/24 Range/Units 18:54 00:05 05:10 POC Glucose (mg/dL) 120 H 125 H 151 H (70-110) mg/dL 09/30/24 Range/Units 06:53 POC Glucose (mg/dL) 117 H (70-110) mg/dL - Imaging and Cardiology Chest x-ray: report reviewed, image reviewed Assessment and Plan Assessment: Multivessel coronary artery disease, status post off-pump coronary artery bypass grafting surgery x 3 vessels Postoperative acute blood loss anemia, expected given hemodilution Paroxysmal atrial fibrillation, a known common occurrence after cardiac surgery Hypertension Dyslipidemia, treated, triglycerides 137, cholesterol 164, LDL 89 Hard of hearing Osteoarthritis Remote history of nicotine dependence quit smoking 30 years ago Plan: Will continue to maximize medical therapy with aspirin, statin, Plavix and beta- angie. Increase metoprolol tartrate to 25 mg p.o. twice daily with hold parameters. Continue amlodipine 2.5 mg p.o. daily at noon for radial artery spasm prophylaxis with hold parameters. Amiodarone drip per protocol, will transition to oral amiodarone 400 mg p.o. twice daily. Wean oxygen as tolerated. Encourage incentive spirometry use 10 times every hour while awake. Bronchodilators per pulmonology Increase activity as tolerated. PT/OT/cardiac rehab following. Lasix 20 mg IV x 1 now. Continue home dose of folic acid. GI/DVT prophylaxis. Will monitor daily labs and chest x-rays, electrolyte replacement per protocol. Pain control per current medication regimen. Insulin management per internal medicine, patient is not diabetic, preoperative hemoglobin A1c 6.0%. Patient should remain on continuous IV insulin for minimum 48 hours, then may transition to subcutaneous per protocol Remove right IJ cordis. Remove right radial arterial line. We will remove his mediastinal and left pleural chest tubes today. Remove Rincon catheter, may bladder scan every 6 hours and as needed postvoid residual, if greater than 300 mL of PVR may straight cath. Continue to monitor strict accurate intake and output. Will place transfer orders to the third floor cardiac stepdown unit later today. Discharge planning is in place, anticipate discharge home with home health care in the next 48 hours. Shower daily starting tomorrow October 01, 2024. Continue daily weights. More recommendations to follow based on patient's clinical course. Time with Patient: Greater than 30
--- NOTE | 2024-09-30 10:14 | P.PN ---
Subjective Progress Note Date: 09/30/24 79-year-old man with medical history of CAD, hypertension, hyperlipidemia, rheumatoid arthritis presented for evaluation of elective CABG. Patient was found to have multivessel disease during left heart cath in the outpatient setting and was referred for three-vessel coronary bypass grafting. Patient und erwent successful surgery on 09/28 and medicine was consulted for medical management thereafter. 09/30: swan-haile and velazquez has been removed. R IJ cordis remains intact. The patient reports he is doing well and informs me that he has overall generlized discomfort but pain appears tolerable. Medasinal and left chest tube remain to suction. Objective - Vital Signs Vital signs: Vital Signs Temp 98.2 F 09/30/24 00:00 Pulse 81 09/30/24 08:00 Resp 15 09/30/24 08:00 BP 92/59 09/30/24 08:00 Pulse Ox 96 09/30/24 08:00 FiO2 45 09/28/24 17:00 Intake & Output 09/29/24 09/30/24 09/30/24 18:59 06:59 18:59 Intake Total 1720.057 813.044 52.178 Output Total 720 745 20 Balance 1000.057 68.044 32.178 Weight 93.4 kg 100.2 kg Intake: IV 711 562 51 0.9 510 490 45 Injectate 20 Kefzol 50 Pressure Bags 81 72 6 ceFAZolin 2 gm In Sodium 50 Chloride 0.9% 50 ml @ 100 mls/hr IVPB Q8HR [facility] Rx# :[id number] Intake, IV Titration 9.057 1.044 1.178 Amount Insulin Regular 100 unit 9.057 1.044 1.178 In Sodium Chloride 0.9% 100 ml @ Per Protocol IV .Q0M [facility] Rx#:[id number] Oral 500 250 Albumin 500 Pressure Bags 500 Output: Chest Tube Drainage 230 280 20 Chest Tube Left Lateral 80 140 0 Chest Chest Tube Mediastinal 150 140 20 Drainage 20 Left Wrist 20 Urine 470 465 Other: Voiding Method Indwelling Catheter Indwelling Catheter ABP, PAP, CO, CI - Last Documented Arterial Blood Pressure 101/50 Pulmonary Artery Pressure 8/3 Cardiac Output 5.6 Cardiac Index 2.5 - Exam Gen: male appears stated age, pleasant HEENT: normocephalic, atraumatic, hearing acuity is intant, mucous membranes moist CVS: heart hugger intact, unable to ausculate heart sounds given heart hugger Respiratory: symmetric chest expansion, no accessory muscle use, 2 chest tubes noted GI: soft, NT, ND : no suprapubic tenderness, no CVA tenderness MSK/Derm: no rashes, cyanosis Neuro: moving all exremties spontanously Psych: calm and copoeartive - Labs CBC & Chem 7: 09/30/24 07:28 09/30/24 07:28 Labs: Abnormal Lab Results - Last 24 Hours (Table) 09/29/24 09/29/24 09/29/24 Range/Units 10:07 11:00 12:06 WBC (3.8-10.6) k/uL RBC (4.30-5.90) m/uL Hgb (13.0-17.5) gm/dL Hct (39.0-53.0) % Neutrophils # (1.3-7.7) k/uL Sodium (137-145) mmol/L Glucose (74-99) mg/dL POC Glucose (mg/dL) 123 H 130 H 117 H (70-110) mg/dL Total Protein (6.3-8.2) g/dL 09/29/24 09/29/24 09/30/24 Range/Units 17:59 18:54 00:05 WBC (3.8-10.6) k/uL RBC (4.30-5.90) m/uL Hgb (13.0-17.5) gm/dL Hct (39.0-53.0) % Neutrophils # (1.3-7.7) k/uL Sodium (137-145) mmol/L Glucose (74-99) mg/dL POC Glucose (mg/dL) 131 H 120 H 125 H (70-110) mg/dL Total Protein (6.3-8.2) g/dL 09/30/24 09/30/24 09/30/24 Range/Units 05:10 06:53 07:28 WBC 12.5 H (3.8-10.6) k/uL RBC 3.06 L (4.30-5.90) m/uL Hgb 9.4 L (13.0-17.5) gm/dL Hct 28.8 L (39.0-53.0) % Neutrophils # 8.7 H (1.3-7.7) k/uL Sodium (137-145) mmol/L Glucose (74-99) mg/dL POC Glucose (mg/dL) 151 H 117 H (70-110) mg/dL Total Protein (6.3-8.2) g/dL 09/30/24 Range/Units 07:28 WBC (3.8-10.6) k/uL RBC (4.30-5.90) m/uL Hgb (13.0-17.5) gm/dL Hct (39.0-53.0) % Neutrophils # (1.3-7.7) k/uL Sodium 129 L (137-145) mmol/L Glucose 107 H (74-99) mg/dL POC Glucose (mg/dL) (70-110) mg/dL Total Protein 5.6 L (6.3-8.2) g/dL Assessment and Plan (1) CAD (coronary artery disease) Narrative/Plan: #) CAD s/p cabg x3 with left atrial appendage ligtation on 09/28. Primary management as per CTS team with 2 chest tubes and swan-haile. Continue medical management with assa 325 mg daily, clopedigrol atorvastatin 40 mg hs. #) Primary htn. Continue amlodipine 2.5 mg daily, and metoprolol tartrate 25 mg BID #) Hyperlipidemia- LDL noted of 89. continue atorvastatin 40 mg hs #) Rheumatoid arthritis. Recommend to restart home methrotrexate when able to. Continue folic acid supplementation #) hx of tobacco use. continued tobacco cessation #) Prediabets, a1c noted to be 6.0% POC glucose checks reviewed and acceptable blood glucose noted. GI PPX: po pantoprazole DVT PPx: heparin TID Disposition, currently in ICU with plans to transfer to stepdown as per primary team possibly later today Current Visit: Yes Status: Acute Code(s): I25.10 - ATHSCL HEART DISEASE OF [place] CORONARY ARTERY W/O ANG PCTRS SNOMED Code(s): 14497213
[2024-09-30 10:31] LABS: Glucose,Whole Blood 139 mg/dL (70-110)
[2024-09-30 11:10] LABS: Glucose,Whole Blood 114 mg/dL (70-110)
[2024-09-30] MEDS: METOPROLOL TARTRATE 12.5 MG TAB PO SCH (11:33)
--- NOTE | 2024-09-30 12:00 | P.PN ---
Subjective Progress Note Date: 09/30/24 This is an 79-year-old male patient with a known history of coronary artery disease who was brought in today electively for an off-pump coronary artery bypass grafting x 3. He received a CAMPO to the LAD, saphenous vein graft to the first diagonal, saphenous vein graft/left radial artery to the PDA. He did undergo left atrial appendage clipping. Postoperative day #0. He is seen upon his return to the intensive care unit. He is currently on the mechanical ventilator and assist-control mode at a rate of 14, tidal volume 550, FiO2 60% and a PEEP of 5. Arterial blood gases on 100% FiO2 revealed a PaO2 of 280, pCO2 of 39 and a pH of 7.39. White count 14.8. Hemoglobin 9.5. Platelet count 201. Glucose 115. Chest x-ray revealed appropriate placement of the endotracheal tube, nasogastric tube and Yantis-Kathi catheter. Left thoracotomy and mediastinal chest tubes in place. No evidence of pneumothorax. He is currently off the propofol. He remains on nitroglycerin drip at 5 mcg/min. Cardizem drip at 5 mg/h. Normal saline at 50 mL/h. Urine output is adequate. Cardiac output 5.7. Cardiac index 2.6. PA pressures 13/8. CVP 5. Sternal dressing is dry and intact. Heart hugger in place. Left radial site covered with Noam wrap. JUAN JOSE drain in place. Bilateral lower extremity Noam wraps in place. SCDs in place. He is initiated on DuoNeb inhalations. Heparin for DVT prophylaxis. The patient was seen today September 29, 2024 in follow-up. Postoperative day #1. He was extubated at approximately 5:30 last evening. He is currently sitting up in a chair at the bedside. Awake and alert in no acute distress. He is currently maintaining good O2 saturations in the 90s on 2 L/min per nasal cannula. He is afebrile. Hemodynamically stable. He remains on normal saline at 50 mL/h. Insulin drip at 1.5 units/h. He is working well with the incentive spirometer. Cardiac output 5.6. Cardiac index 2.5. PA pressure 13/8. CVP 3. Left and mediastinal chest tubes remain in place. Chest x-ray reveals postsurgical changes with blunting of the left costophrenic angle. White count 11.6. Hemoglobin 9.8. Platelets 222. Sodium 134. Potassium 3.9. Bicarb 25. BUN 14. Creatinine 0.71. Glucose 120. He continues to work well with the incentive spirometer. He remains on bronchodilators. Heparin for DVT prophylaxis. The patient was seen today September 30, 2024 in follow-up. Postoperative day #2. He is currently resting comfortably in bed. Awake and alert in no acute d istress. Chest tubes have been removed. He did develop atrial fibrillation with rapid ventricular response approximately 430 this morning. He has received amiodarone bolus and is currently on a amiodarone drip at 1 mg/h. He has normal saline at 40 mL/h. Insulin drip is on hold. Lets 208. Sodium 129. Potassium 4.3. Bicarb 24. BUN 16. Creatinine 0.85. Glucose 107. He remains on bronchodilators. Heparin for DVT prophylaxis. Objective - Vital Signs Vital signs: Vital Signs Temp 98.2 F 09/30/24 00:00 Pulse 78 09/30/24 11:21 Resp 22 09/30/24 11:00 BP 92/59 09/30/24 08:00 Pulse Ox 96 09/30/24 11:00 FiO2 45 09/28/24 17:00 Intake & Output 09/29/24 09/30/24 09/30/24 18:59 06:59 18:59 Intake Total 1720.057 813.044 236.178 Output Total 720 745 315 Balance 1000.057 68.044 -78.822 Weight 93.4 kg 100.2 kg Intake: IV 711 562 235 0.9 510 490 205 Injectate 20 Kefzol 50 Pressure Bags 81 72 30 ceFAZolin 2 gm In Sodium 50 Chloride 0.9% 50 ml @ 100 mls/hr IVPB Q8HR [facility] Rx# :[id number] Intake, IV Titration 9.057 1.044 1.178 Amount Insulin Regular 100 unit 9.057 1.044 1.178 In Sodium Chloride 0.9% 100 ml @ Per Protocol IV .Q0M [facility] Rx#:[id number] Oral 500 250 Albumin 500 Pressure Bags 500 Output: Chest Tube Drainage 230 280 20 Chest Tube Left Lateral 80 140 0 Chest Chest Tube Mediastinal 150 140 20 Drainage 20 Left Wrist 20 Urine 470 465 295 Other: Voiding Method Indwelling Catheter Indwelling Catheter ABP, PAP, CO, CI - Last Documented Arterial Blood Pressure 108/52 Pulmonary Artery Pressure 8/3 Cardiac Output 5.6 Cardiac Index 2.5 - Exam GENERAL EXAM: Awake, 79-year-old male patient on 2 L/min per nasal cannula, in no apparent distress. HEAD: Normocephalic. EYES: Normal reaction of pupils, equal size. NOSE: Clear with pink turbinates. THROAT: No erythema or exudates. NECK: No masses, no JVD. CHEST: Sternal dressing dry and intact. Heart hugger in place. LUNGS: Equal air entry with no crackles, wheeze, rhonchi or dullness. CVS: S1 and S2 normal with no audible murmur, regular rhythm. ABDOMEN: No hepatosplenomegaly, hypoactive bowel sounds, no guarding or rigidity. SPINE: No scoliosis or deformity SKIN: No rashes CENTRAL NERVOUS SYSTEM: No focal deficits, tone is normal in all 4 extremities. EXTREMITIES: Left upper extremity a wrist wrap in place. Bilateral lower extremity Noam wraps in place. SCDs in place. There is no peripheral edema. No clubbing, no cyanosis. Peripheral pulses are intact. - Labs CBC & Chem 7: 09/30/24 07:28 09/30/24 07:28 Labs: Abnormal Lab Results - Last 24 Hours (Table) 09/29/24 09/29/24 09/29/24 Range/Units 12:06 17:59 18:54 WBC (3.8-10.6) k/uL RBC (4.30-5.90) m/uL Hgb (13.0-17.5) gm/dL Hct (39.0-53.0) % Neutrophils # (1.3-7.7) k/uL Sodium (137-145) mmol/L Glucose (74-99) mg/dL POC Glucose (mg/dL) 117 H 131 H 120 H (70-110) mg/dL Total Protein (6.3-8.2) g/dL 09/30/24 09/30/24 09/30/24 Range/Units 00:05 05:10 06:53 WBC (3.8-10.6) k/uL RBC (4.30-5.90) m/uL Hgb (13.0-17.5) gm/dL Hct (39.0-53.0) % Neutrophils # (1.3-7.7) k/uL Sodium (137-145) mmol/L Glucose (74-99) mg/dL POC Glucose (mg/dL) 125 H 151 H 117 H (70-110) mg/dL Total Protein (6.3-8.2) g/dL 09/30/24 09/30/24 09/30/24 Range/Units 07:28 07:28 10:30 WBC 12.5 H (3.8-10.6) k/uL RBC 3.06 L (4.30-5.90) m/uL Hgb 9.4 L (13.0-17.5) gm/dL Hct 28.8 L (39.0-53.0) % Neutrophils # 8.7 H (1.3-7.7) k/uL Sodium 129 L (137-145) mmol/L Glucose 107 H (74-99) mg/dL POC Glucose (mg/dL) 139 H (70-110) mg/dL Total Protein 5.6 L (6.3-8.2) g/dL 09/30/24 Range/Units 11:08 WBC (3.8-10.6) k/uL RBC (4.30-5.90) m/uL Hgb (13.0-17.5) gm/dL Hct (39.0-53.0) % Neutrophils # (1.3-7.7) k/uL Sodium (137-145) mmol/L Glucose (74-99) mg/dL POC Glucose (mg/dL) 114 H (70-110) mg/dL Total Protein (6.3-8.2) g/dL Assessment and Plan Assessment: Coronary artery disease status post coronary artery bypass grafting x 3, off- pump, received a CAMPO to the LAD, saphenous vein graft to the first diagonal, hybrid conduit saphenous vein/left radial arterial graft to the PDA. Left atrial appendage clipping. Postoperative day #2. Mechanical ventilator management, expected outcome of surgery. Recovered and currently on 2 L nasal cannula Atrial fibrillation, not an unexpected outcome of surgery, currently on amiodarone drip History of hypertension History of rheumatoid arthritis on methotrexate Remote history of smoking, quit over 30 years ago Plan: The patient was seen and evaluated Chest x-ray, labs and medications reviewed Titrate down the FiO2 as tolerated Continue bronchodilators Heparin for DVT prophylaxis Initiated on an amiodarone drip Increase activity as tolerated We will continue to follow I have personally seen and examined the patient, performed the documentation and the assessment and plan as written. Number of minutes spent on the visit: 10 Dictation was produced using [employer] dictation software. Please excuse any grammatical, word or spelling errors.
[2024-09-30] MEDS: AMIODARONE 450 MG in DEXTROSE 5% IN WATER 250 ML IV PRN (12:22)
[2024-09-30 12:24] LABS: Glucose,Whole Blood 106 mg/dL (70-110)
[2024-09-30 13:16] LABS: Glucose,Whole Blood 107 mg/dL (70-110)
[2024-09-30] MEDS ORDERED: DEXTROSE 50% SYRINGE 50 ML IVP PRN ×2 (15:39)
--- NOTE | 2024-09-30 16:34 | P.PN ---
Subjective This is a pleasant 79 year-old with past medical history significant for hypertension, hyperlipidemia, mild ascending aortic aneurysm 4.0cm, multivessel CAD and remote tobacco abuse who presented for elective CABG. Patient follows in the office with Dr Blue. He has been noting exertional chest pain and dyspnea with exertion over the last 2-3 months and had workup including echo which showed preserved EF 55% and stress echo which showed inducible ischemia. He underwent diagnostic LHC which showed a multivessel CAD 80-90% LAD, circumflex and RCA disease. He underwent successful CABG x 3 and RODRI ligation today with CAMPO to LAD, SVG to diagonal and hybrid SVG/radial to PDA. He is currently intubated and sedated however able to nod his head to answer some questions. He is on a nitro and cardizem drip. He is off of pressors. He is in normal sinus rhythm. Xray shows appropriate lines and small left pleural effusion. 09/29 patient seen and examined. Patient denies any chest pain or pressure. Does not have much of an appetite. Has been off of any vasopressors. Hemoglobin 9.8, creatinine 0.7. 09/30 Patient seen and examined. Patient overall states he feels okay. He'll not much of an appetite. He did go into A. fib with relatively controlled rates at approximately 4:30 this morning. He was given amiodarone bolus and drip. No chest pain or pressure. PHYSICAL EXAMINATION Vital signs reviewed. CONSTITUTIONAL: No apparent distress, intubated and sedated. HEENT: Head is normocephalic. Pupils are equal, round. Sclerae anicteric. Mucous membranes of the mouth are moist. No JVD. No carotid bruit. CHEST EXAMINATION: Lungs are clear to auscultation. HEART EXAMINATION: Regular rate and rhythm. S1, S2 heard. No murmurs, gallops or rub. ABDOMEN: Soft, nontender. Positive bowel sounds. EXTREMITIES: 2+ peripheral pulses, no lower extremity edema and no calf tenderness. NEUROLOGIC EXAMINATION: Patient is somnomlent on vent but able to answer some questions ASSESSMENT CAD s/p CABG x 3 09/28 Hypertension Hyperlipidemia Mild ascending aortic aneurysm 4.0 cm Remote tobacco abuse Post op Afib PLAN Continue with current regimen including aspirin Plavix, amiodarone, Metoprolol. Finish amiodarone gtt. Fairly asymptomatic and controlled Afib HR's. Appears stable for transfer from ICU. Objective - Vital Signs Vital signs: Vital Signs Temp 98.4 F 09/30/24 13:00 Pulse 76 09/30/24 15:30 Resp 19 09/30/24 15:30 BP 102/64 09/30/24 15:30 Pulse Ox 91 L 09/30/24 15:30 FiO2 45 09/28/24 17:00 Intake & Output 09/29/24 09/30/24 09/30/24 18:59 06:59 18:59 Intake Total 1720.057 813.044 276.178 Output Total 720 745 365 Balance 1000.057 68.044 -88.822 Weight 93.4 kg 100.2 kg Intake: IV 711 562 275 0.9 510 490 245 Injectate 20 Kefzol 50 Pressure Bags 81 72 30 ceFAZolin 2 gm In Sodium 50 Chloride 0.9% 50 ml @ 100 mls/hr IVPB Q8HR [facility] Rx# :[id number] Intake, IV Titration 9.057 1.044 1.178 Amount Insulin Regular 100 unit 9.057 1.044 1.178 In Sodium Chloride 0.9% 100 ml @ Per Protocol IV .Q0M [facility] Rx#:[id number] Oral 500 250 Albumin 500 Pressure Bags 500 Output: Chest Tube Drainage 230 280 20 Chest Tube Left Lateral 80 140 0 Chest Chest Tube Mediastinal 150 140 20 Drainage 20 Left Wrist 20 Urine 470 465 345 Other: Voiding Method Indwelling Catheter Indwelling Catheter Indwelling Catheter ABP, PAP, CO, CI - Last Documented Arterial Blood Pressure 108/52 Pulmonary Artery Pressure 8/3 Cardiac Output 5.6 Cardiac Index 2.5 - Labs CBC & Chem 7: 09/30/24 07:28 09/30/24 07:28 Labs: Abnormal Lab Results - Last 24 Hours (Table) 09/29/24 09/29/24 09/30/24 Range/Units 17:59 18:54 00:05 WBC (3.8-10.6) k/uL RBC (4.30-5.90) m/uL Hgb (13.0-17.5) gm/dL Hct (39.0-53.0) % Neutrophils # (1.3-7.7) k/uL Sodium (137-145) mmol/L Glucose (74-99) mg/dL POC Glucose (mg/dL) 131 H 120 H 125 H (70-110) mg/dL Total Protein (6.3-8.2) g/dL 09/30/24 09/30/24 09/30/24 Range/Units 05:10 06:53 07:28 WBC 12.5 H (3.8-10.6) k/uL RBC 3.06 L (4.30-5.90) m/uL Hgb 9.4 L (13.0-17.5) gm/dL Hct 28.8 L (39.0-53.0) % Neutrophils # 8.7 H (1.3-7.7) k/uL Sodium (137-145) mmol/L Glucose (74-99) mg/dL POC Glucose (mg/dL) 151 H 117 H (70-110) mg/dL Total Protein (6.3-8.2) g/dL 09/30/24 09/30/24 09/30/24 Range/Units 07:28 10:30 11:08 WBC (3.8-10.6) k/uL RBC (4.30-5.90) m/uL Hgb (13.0-17.5) gm/dL Hct (39.0-53.0) % Neutrophils # (1.3-7.7) k/uL Sodium 129 L (137-145) mmol/L Glucose 107 H (74-99) mg/dL POC Glucose (mg/dL) 139 H 114 H (70-110) mg/dL Total Protein 5.6 L (6.3-8.2) g/dL
[2024-09-30 16:47] LABS: Glucose,Whole Blood 106 mg/dL (70-110)
[2024-09-30] MEDS: INSULIN ASPART (NovoLOG) 100 UNIT/ML VIAL SQ SCH (17:29)
[2024-09-30 21:17] LABS: Glucose,Whole Blood 119 mg/dL (70-110)
[2024-09-30] MEDS: AMIODARONE 200 MG TAB PO SCH (21:29)
[2024-10-01 06:25] LABS: Glucose,Whole Blood 110 mg/dL (70-110)
[2024-10-01 06:28] LABS: HCT 29.6 % (39.0-53.0); HGB 9.4 gm/dL (13.0-17.5); MCH 30.6 pg (25.0-35.0); MCHC 31.8 g/dL (31.0-37.0); MCV 96.2 fL (80.0-100.0); Platelet Count 205 k/uL (150-450); RBC 3.08 m/uL (4.30-5.90); RDW 13.3 % (11.5-15.5); WBC 12.6 k/uL (3.8-10.6)
[2024-10-01 06:57] LABS: African American GFR (CKD) >90 (>60 ml/min/1.73 sqM); Anion Gap 6 mmol/L; Blood Urea Nitrogen 18 mg/dL (9-20); Calcium 8.5 mg/dL (8.4-10.2); Carbon Dioxide 21 mmol/L (22-30); Chloride 102 mmol/L (98-107); Glucose 113 mg/dL (74-99); Non-African American GFR(CKD) 79 (>60 ml/min/1.73 sqM); Potassium 4.1 mmol/L (3.5-5.1); Sodium 129 mmol/L (137-145)
--- NOTE | 2024-10-01 08:32 | XR ---
EXAMINATION TYPE: XR chest 2V DATE OF EXAM: 10/01/2024 6:48 AM COMPARISON: Chest radiographs from 09/30/2024 CLINICAL INDICATION: Male, 79 years old with history of post op CABG; [facility] TECHNIQUE: XR chest 2V Frontal and lateral views of the chest. FINDINGS: Lungs/Pleura: Trace opacities possibly atelectasis projecting over the heart. There is no evidence of pleural effusion, focal consolidation, or pneumothorax. Pulmonary vascularity: Unremarkable. Heart/mediastinum: Cardiomediastinal silhouette is unremarkable. Atrial septal defect occlusion devic e present. Musculoskeletal: No acute osseous pathology. Other findings: None IMPRESSION: Postsurgical changes with some airspace opacities projecting the heart are otherwise not significantl y changed from prior. [facility], , 10/01/2024 8:29 AM
[2024-10-01] MEDS: ALBUMIN HUMAN 5% 250 ML in EMPTY BAG 1 BAG IVPB STA (08:37)
--- NOTE | 2024-10-01 09:05 | P.PN ---
Subjective Progress Note Date: 10/01/24 Principal diagnosis: Coronary artery disease. Past medical history significant for hypertension, dyslipidemia, osteoarthritis, hard of hearing and a remote history of nicotine dependence quit smoking 30 years ago. POD #3 off-pump coronary artery bypass grafting x 3 with CAMPO to LAD, saphenous vein graft to first diagonal, hybrid conduit saphenous vein/left radial artery to posterior descending coronary artery, EVH of the left greater saphenous vein from the left thigh, endoscopic harvest of the left radial artery, ligation of the left atrial appendage with a 40 mm AtriCure clip. Postoperative acute blood loss anemia, expected given hemodilution. The patient was seen and examined in follow-up today October 01, 2024 at his bedside in the intensive care unit. He is currently sitting up to the bedside chair, is awake, alert, oriented x 3 and is in no acute apparent distress. Denies any complaints of pain, shortness of breath or nausea at this time. Reports his pain is 0 at this time. He states he does not have an appetite and has not been eating much of his meals. Discussed the importance of nutrition post cardiac surgery. He states that his family will start bringing him some meals from home that he enjoys. He remains hemodynamically stable and is curr ently on no inotropic or pressor support. He reports he was up walking in the intensive care unit hallway this morning with standby assistance or nursing staff and tolerating well. First postoperative shower this a.m and tolerated well. Oxygen saturations are 97% on 2 L nasal cannula and he is achieving 2000 mL on his incentive spirometry with encouragement. Bedside telemetry is showing atrial fibrillation heart rate 91 bpm. He continues on amiodarone 400 mg p.o. twice daily and metoprolol to tartrate 12.5 mg p.o. twice daily. Chest x-ray and laboratory results were reviewed. Objective - Vital Signs Vital signs: Vital Signs Temp 98.2 F 10/01/24 00:00 Pulse 66 10/01/24 07:53 Resp 17 10/01/24 07:00 BP 100/64 10/01/24 07:00 Pulse Ox 94 L 10/01/24 05:00 FiO2 45 09/28/24 17:00 Intake & Output 09/30/24 10/01/24 10/01/24 18:59 06:59 18:59 Intake Total 286.178 Output Total 565 600 0 Balance -278.822 -600 0 Weight 99.9 kg Intake: IV 285 0.9 255 Pressure Bags 30 Intake, IV Titration 1.178 Amount Insulin Regular 100 unit 1.178 In Sodium Chloride 0.9% 100 ml @ Per Protocol IV .Q0M [facility] Rx#:[id number] Output: Chest Tube Drainage 20 Chest Tube Left Lateral 0 Chest Chest Tube Mediastinal 20 Urine 545 600 0 Other: Voiding Method Urinal Urinal ABP, PAP, CO, CI - Last Documented Arterial Blood Pressure 108/52 Pulmonary Artery Pressure 8/3 Cardiac Output 5.6 Cardiac Index 2.5 - Exam CONSTITUTIONAL: Sitting up to the bedside chair in the intensive care unit, appears comfortable, cooperative, no apparent acute distress. HEENT: Neck is supple, no JVD, no lymphadenopathy. RESPIRATORY: Lungs sounds essentially clear throughout, diminished to his bilateral bases, left greater than right. Respirations are symmetrical and nonlabored. Currently on 2 L nasal cannula with oxygen saturations 97%. Able to achieve 2000 mL on his incentive spirometry. Strong cough. CARDIOVASCULAR: Irregular rhythm and controlled rate. S1 and S2 present, negative for S3, gallop or murmur. Bedside telemetry atrial fibrillation heart rate 91 bpm. Sternum is stable. Palpable peripheral pulses bilaterally, trace edema to his bilateral lower extremities. No calf pain or tenderness noted. Heart hugger in place with patient demonstrating appropriate use. Knee-high DONTE hose and sequential compression devices in place to his bilateral lower extremities. GASTROINTESTINAL: Abdomen soft, nontender, nondistended. Active bowel sounds present 4 quadrants. Tolerating diet. Passing flatus. No guarding or rigidity. GENITOURINARY: Continues to void. Urine output 320 mL in the last 8 hours. INTEGUMENTARY: Skin is warm and dry with no evidence of clubbing or cyanosis. Midline sternal incision clean dry and well approximated, covered with dry intact dressing. Right lower extremity EVH sites well approximated without redness or drainage. Left arm radial artery harvest sites clean, dry and approximated. No drainage or redness is present. NEUROLOGIC: Cranial nerves II through XII intact. No focal deficits. MUSKULOSKELETAL: Able to move all extremities, strength equal bilaterally, generalized weakness. PSYCHIATRIC: Alert and oriented to person place and time, appropriate affect, intact judgment and insight. - Labs CBC & Chem 7: 10/01/24 06:18 10/01/24 06:18 Labs: Abnormal Lab Results - Last 24 Hours (Table) 09/30/24 09/30/24 09/30/24 Range/Units 10:30 11:08 21:16 WBC (3.8-10.6) k/uL RBC (4.30-5.90) m/uL Hgb (13.0-17.5) gm/dL Hct (39.0-53.0) % Sodium (137-145) mmol/L Carbon Dioxide (22-30) mmol/L Glucose (74-99) mg/dL POC Glucose (mg/dL) 139 H 114 H 119 H (70-110) mg/dL 10/01/24 10/01/24 Range/Units 06:18 06:18 WBC 12.6 H (3.8-10.6) k/uL RBC 3.08 L (4.30-5.90) m/uL Hgb 9.4 L (13.0-17.5) gm/dL Hct 29.6 L (39.0-53.0) % Sodium 129 L (137-145) mmol/L Carbon Dioxide 21 L (22-30) mmol/L Glucose 113 H (74-99) mg/dL POC Glucose (mg/dL) (70-110) mg/dL - Imaging and Cardiology Chest x-ray: report reviewed, image reviewed Assessment and Plan Assessment: Multivessel coronary artery disease, status post off-pump coronary artery bypass grafting surgery x 3 vessels Postoperative acute blood loss anemia, expected given hemodilution Paroxysmal atrial fibrillation, a known common occurrence after cardiac surgery Hypertension Dyslipidemia, treated, triglycerides 137, cholesterol 164, LDL 89 Hard of hearing Osteoarthritis Remote history of nicotine dependence quit smoking 30 years ago Plan: Will continue to maximize medical therapy with aspirin, statin, Plavix and beta- angie. Increase metoprolol tartrate as tolerated with hold parameters. Currently on metoprolol to tartrate 12.5 mg p.o. twice daily Discontinue amlodipine. Start midodrine 5 mg p.o. twice daily. Continue amiodarone 400 mg p.o. twice daily. Wean oxygen as tolerated. Encourage incentive spirometry use 10 times every hour while awake. Bronchodilators per pulmonology Increase activity as tolerated. PT/OT/cardiac rehab following. Continue home dose of folic acid. GI/DVT prophylaxis. Will monitor daily labs and chest x-rays, electrolyte replacement per protocol. Pain control per current medication regimen. Insulin management per internal medicine, patient is not diabetic, preoperative hemoglobin A1c 6.0%. Patient should remain on continuous IV insulin for minimum 48 hours, then may transition to subcutaneous per protocol. Remove Rincon catheter, may bladder scan every 6 hours and as needed postvoid residual, if greater than 300 mL of PVR may straight cath. Continue to monitor strict accurate intake and output. Transfer third floor cardiac stepdown unit later today. Discharge planning is in place, anticipate discharge home with home health care in the next 48 hours. Shower daily. Continue daily weights. Sodium today is 129, start 1500 mL in 24-hour fluid restriction. More recommendations to follow based on patient's clinical course. Time with Patient: Greater than 30
[2024-10-01] MEDS: MIDODRINE 5 MG TAB PO SCH (09:25)
[2024-10-01 10:12] VITALS: BMI 29.0
[2024-10-01 11:23] LABS: Glucose,Whole Blood 121 mg/dL (70-110)
--- NOTE | 2024-10-01 12:54 | P.PN ---
Subjective Progress Note Date: 10/01/24 This is an 79-year-old male patient with a known history of coronary artery disease who was brought in today electively for an off-pump coronary artery bypass grafting x 3. He received a CAMPO to the LAD, saphenous vein graft to the first diagonal, saphenous vein graft/left radial artery to the PDA. He did undergo left atrial appendage clipping. Postoperative day #0. He is seen upon his return to the intensive care unit. He is currently on the mechanical ventilator and assist-control mode at a rate of 14, tidal volume 550, FiO2 60% and a PEEP of 5. Arterial blood gases on 100% FiO2 revealed a PaO2 of 280, pCO2 of 39 and a pH of 7.39. White count 14.8. Hemoglobin 9.5. Platelet count 201. Glucose 115. Chest x-ray revealed appropriate placement of the endotracheal tube, nasogastric tube and [place] catheter. Left thoracotomy and mediastinal chest tubes in place. No evidence of pneumothorax. He is currently off the propofol. He remains on nitroglycerin drip at 5 mcg/min. Cardizem drip at 5 mg/h. Normal saline at 50 mL/h. Urine output is adequate. Cardiac output 5.7. Cardiac index 2.6. PA pressures 13/8. CVP 5. Sternal dressing is dry and intact. Heart hugger in place. Left radial site covered with Noam wrap. JUAN JOSE drain in place. Bilateral lower extremity Noam wraps in place. SCDs in place. He is initiated on DuoNeb inhalations. Heparin for DVT prophylaxis. The patient was seen today September 29, 2024 in follow-up. Postoperative day #1. He was extubated at approximately 5:30 last evening. He is currently sitting up in a chair at the bedside. Awake and alert in no acute distress. He is currently maintaining good O2 saturations in the 90s on 2 L/min per nasal cannula. He is afebrile. Hemodynamically stable. He remains on normal saline at 50 mL/h. Insulin drip at 1.5 units/h. He is working well with the incentive spirometer. Cardiac output 5.6. Cardiac index 2.5. PA pressure 13/8. CVP 3. Left and mediastinal chest tubes remain in place. Chest x-ray reveals postsurgical changes with blunting of the left costophrenic angle. White count 11.6. Hemoglobin 9.8. Platelets 222. Sodium 134. Potassium 3.9. Bicarb 25. BUN 14. Creatinine 0.71. Glucose 120. He continues to work well with the incentive spirometer. He remains on bronchodilators. Heparin for DVT prophylaxis. The patient was seen today September 30, 2024 in follow-up. Postoperative day #2. He is currently resting comfortably in bed. Awake and alert in no acute d istress. Chest tubes have been removed. He did develop atrial fibrillation with rapid ventricular response approximately 430 this morning. He has received amiodarone bolus and is currently on a amiodarone drip at 1 mg/h. He has normal saline at 40 mL/h. Insulin drip is on hold. Lets 208. Sodium 129. Potassium 4.3. Bicarb 24. BUN 16. Creatinine 0.85. Glucose 107. He remains on bronchodilators. Heparin for DVT prophylaxis. The patient is seen today October 01, 2024 in follow-up. Postoperative day #3. He is currently sitting up in a chair at the bedside. Awake and alert in no a cute distress. Continue good O2 saturations in the 90s on 2 L/min per nasal cannula. He has been up ambulating with assistance. Chest x-ray reveals postsurgical changes with some airspace opacities. No significant change compared to previous. White count 12.6. Hemoglobin 9.4. Platelets 205. Sodium 129. Potassium 4.1. Bicarb 21. BUN 18. Creatinine 0.91. Glucose 113. He has been transitioned to oral amiodarone. Remains on heparin for DVT prophylaxis. Continued on bronchodilators. Working well with the incentive spirometer. Objective - Vital Signs Vital signs: Vital Signs Temp 98.3 F 10/01/24 12:34 Pulse 79 10/01/24 12:34 Resp 17 10/01/24 12:34 BP 103/64 10/01/24 12:34 Pulse Ox 97 10/01/24 12:34 FiO2 45 09/28/24 17:00 Intake & Output 09/30/24 10/01/24 10/01/24 18:59 06:59 18:59 Intake Total 286.178 350 Output Total 565 600 0 Balance -278.822 -600 350 Weight 99.9 kg 99.9 kg Intake: IV 285 0.9 255 Pressure Bags 30 Intake, IV Titration 1.178 250 Amount Albumin Human 5% 250 ml 250 In Empty Bag 1 bag @ 250 mls/hr IVPB Q1HR PRN Rx#: [id number] Insulin Regular 100 unit 1.178 In Sodium Chloride 0.9% 100 ml @ Per Protocol IV .Q0M [facility] Rx#:[id number] Oral 100 Output: Chest Tube Drainage 20 Chest Tube Left Lateral 0 Chest Chest Tube Mediastinal 20 Urine 545 600 0 Other: Voiding Method Urinal Urinal Urinal ABP, PAP, CO, CI - Last Documented Arterial Blood Pressure 108/52 Pulmonary Artery Pressure 8/3 Cardiac Output 5.6 Cardiac Index 2.5 - Exam GENERAL EXAM: Awake, 79-year-old male, sitting up in a chair, on 2 L/min per nasal cannula, in no apparent distress. HEAD: Normocephalic. EYES: Normal reaction of pupils, equal size. NOSE: Clear with pink turbinates. THROAT: No erythema or exudates. NECK: No masses, no JVD. CHEST: Sternal dressing dry and intact. Heart hugger in place. LUNGS: Equal air entry with no crackles, wheeze, rhonchi or dullness. CVS: S1 and S2 normal with no audible murmur, regular rhythm. ABDOMEN: No hepatosplenomegaly, hypoactive bowel sounds, no guarding or rigidity. SPINE: No scoliosis or deformity SKIN: No rashes CENTRAL NERVOUS SYSTEM: No focal deficits, tone is normal in all 4 extremities. EXTREMITIES: There is no peripheral edema. No clubbing, no cyanosis. Peripheral pulses are intact. - Labs CBC & Chem 7: 10/01/24 06:18 10/01/24 06:18 Labs: Abnormal Lab Results - Last 24 Hours (Table) 09/30/24 10/01/24 10/01/24 Range/Units 21:16 06:18 06:18 WBC 12.6 H (3.8-10.6) k/uL RBC 3.08 L (4.30-5.90) m/uL Hgb 9.4 L (13.0-17.5) gm/dL Hct 29.6 L (39.0-53.0) % Sodium 129 L (137-145) mmol/L Carbon Dioxide 21 L (22-30) mmol/L Glucose 113 H (74-99) mg/dL POC Glucose (mg/dL) 119 H (70-110) mg/dL 10/01/24 Range/Units 11:21 WBC (3.8-10.6) k/uL RBC (4.30-5.90) m/uL Hgb (13.0-17.5) gm/dL Hct (39.0-53.0) % Sodium (137-145) mmol/L Carbon Dioxide (22-30) mmol/L Glucose (74-99) mg/dL POC Glucose (mg/dL) 121 H (70-110) mg/dL Assessment and Plan Assessment: Coronary artery disease status post coronary artery bypass grafting x 3, off- pump, received a CAMPO to the LAD, saphenous vein graft to the first diagonal, hybrid conduit saphenous vein/left radial arterial graft to the PDA. Left atrial appendage clipping. Postoperative day #3. Mechanical ventilator management, expected outcome of surgery. Recovered and currently on 2 L nasal cannula Atrial fibrillation, not an unexpected outcome of surgery, currently on oral amiodarone History of hypertension History of rheumatoid arthritis on methotrexate Remote history of smoking, quit over 30 years ago Plan: The patient was seen and evaluated Chest x-ray, labs and medications reviewed Continue the current treatment plan Increase activity as tolerated We will continue to follow Plan will be for home with home care at discharge I have personally seen and examined the patient, performed the documentation and the assessment and plan as written. Number of minutes spent on the visit: 10 Dictation was produced using [employer] dictation software. Please excuse any grammatical, word or spelling errors.
--- NOTE | 2024-10-01 14:51 | P.PN ---
Subjective Progress Note Date: 10/01/24 Subjective: Patient seen and examined at bedside. No acute events overnight. Oral intake still poor. Pertinent positives and negatives as discussed above, a complete review of systems was performed and all other systems are negative. Vitals Signs Reviewed. General: Nontoxic, no distress, appears at stated age Derm: Warm, dry, dressing clean, dry, intact Head: Atraumatic, normocephalic, symmetric Eyes: EOMI, no lid lag, anicteric sclera Mouth: No lip lesion, mucus membranes moist Cardiovascular: S1S2 reg, no murmur Lungs: CTA bilateral, no rhonchi, no rales, no accessory muscle use Abdominal: Soft, nontender to palpation, no guarding, no appreciable organomegaly Ext: No gross muscle atrophy, no edema, no contractures Neuro: CN II-XI grossly intact, no focal neuro deficits Psych: Alert, oriented, appropriate affect Data Reviewed Today: Pertinent Labs: WBC 12.6, hemoglobin 9.4, sodium 129, bicarb 21, creatinine 0.91, blood sugars range between 10 6-1 21, magnesium 2.2 Imaging: Chest x-ray independently interpreted, shows postoperative changes, similar to yesterday Assessment and Plan: Active: CAD status post CABG Acute blood loss anemia, anticipated outcome of surgery Leukocytosis, anticipated outcome of surgery Paroxysmal atrial fibrillation Hypertension Dyslipidemia Mild hypovolemic hyponatremia Non-anion gap metabolic acidosis -Discussed management with cardiothoracic surgery, patient being given albumin IV, was given IV Lasix yesterday -Also started on midodrine 5 twice daily, holding antihypertensives, amiodarone 400 twice daily, aspirin 325 daily, atorvastatin 40 daily, Plavix 75 daily, metoprolol 12.5 twice daily -On Protonix 40 daily for GI prophylaxis, and Toradol 15 IV every 6 hours for pain -Metabolic acidemia likely in the setting of fluids -Repeat CBC and BMP tomorrow Hyperglycemia Prediabetes -A1c 5.9 -Sliding scale insulin, ACHS, monitor for hypoglycemia Rheumatoid arthritis -Resume methotrexate outpatient Thank you for allowing us to participate in the care of this pleasant patient. Do not hesitate to contact us with questions. Someone can be reached from the [facility] [place] hospitalist group all hours of the day at [phone] or via perfect serve. Objective - Vital Signs Vital signs: Vital Signs Temp 98.3 F 10/01/24 12:34 Pulse 68 10/01/24 13:01 Resp 17 10/01/24 12:34 BP 103/64 10/01/24 12:34 Pulse Ox 97 10/01/24 12:34 FiO2 45 09/28/24 17:00 Intake & Output 09/30/24 10/01/24 10/01/24 18:59 06:59 18:59 Intake Total 286.178 350 Output Total 565 600 0 Balance -278.822 -600 350 Weight 99.9 kg 99.9 kg Intake: IV 285 0.9 255 Pressure Bags 30 Intake, IV Titration 1.178 250 Amount Albumin Human 5% 250 ml 250 In Empty Bag 1 bag @ 250 mls/hr IVPB Q1HR PRN Rx#: [id number] Insulin Regular 100 unit 1.178 In Sodium Chloride 0.9% 100 ml @ Per Protocol IV .Q0M [facility] Rx#:[id number] Oral 100 Output: Chest Tube Drainage 20 Chest Tube Left Lateral 0 Chest Chest Tube Mediastinal 20 Urine 545 600 0 Other: Voiding Method Urinal Urinal Urinal ABP, PAP, CO, CI - Last Documented Arterial Blood Pressure 108/52 Pulmonary Artery Pressure 8/3 Cardiac Output 5.6 Cardiac Index 2.5 - Labs CBC & Chem 7: 10/01/24 06:18 10/01/24 06:18 Labs: Abnormal Lab Results - Last 24 Hours (Table) 09/30/24 10/01/24 10/01/24 Range/Units 21:16 06:18 06:18 WBC 12.6 H (3.8-10.6) k/uL RBC 3.08 L (4.30-5.90) m/uL Hgb 9.4 L (13.0-17.5) gm/dL Hct 29.6 L (39.0-53.0) % Sodium 129 L (137-145) mmol/L Carbon Dioxide 21 L (22-30) mmol/L Glucose 113 H (74-99) mg/dL POC Glucose (mg/dL) 119 H (70-110) mg/dL 10/01/24 Range/Units 11:21 WBC (3.8-10.6) k/uL RBC (4.30-5.90) m/uL Hgb (13.0-17.5) gm/dL Hct (39.0-53.0) % Sodium (137-145) mmol/L Carbon Dioxide (22-30) mmol/L Glucose (74-99) mg/dL POC Glucose (mg/dL) 121 H (70-110) mg/dL
[2024-10-01 16:16] LABS: Glucose,Whole Blood 127 mg/dL (70-110)
--- NOTE | 2024-10-01 17:31 | P.PN ---
Subjective This is a pleasant 79 year-old with past medical history significant for hypertension, hyperlipidemia, mild ascending aortic aneurysm 4.0cm, multivessel CAD and remote tobacco abuse who presented for elective CABG. Patient follows in the office with Dr Blue. He has been noting exertional chest pain and dyspnea with exertion over the last 2-3 months and had workup including echo which showed preserved EF 55% and stress echo which showed inducible ischemia. He underwent diagnostic LHC which showed a multivessel CAD 80-90% LAD, circumflex and RCA disease. He underwent successful CABG x 3 and RODRI ligation today with CAMPO to LAD, SVG to diagonal and hybrid SVG/radial to PDA. He is currently intubated and sedated however able to nod his head to answer some questions. He is on a nitro and cardizem drip. He is off of pressors. He is in normal sinus rhythm. Xray shows appropriate lines and small left pleural effusion. 09/29 patient seen and examined. Patient denies any chest pain or pressure. Does not have much of an appetite. Has been off of any vasopressors. Hemoglobin 9.8, creatinine 0.7. 09/30 Patient seen and examined. Patient overall states he feels okay. He'll not much of an appetite. He did go into A. fib with relatively controlled rates at approximately 4:30 this morning. He was given amiodarone bolus and drip. No chest pain or pressure. 10/01 Seen and examined. Denies any chest pain or pressure. Has more of an appetite today. He did go back in A. fib with controlled ventricular rates however curr ently back in normal sinus rhythm with heart rates in the 70s and 80s. PHYSICAL EXAMINATION Vital signs reviewed. CONSTITUTIONAL: No apparent distress, intubated and sedated. HEENT: Head is normocephalic. Pupils are equal, round. Sclerae anicteric. Mucous membranes of the mouth are moist. No JVD. No carotid bruit. CHEST EXAMINATION: Lungs are clear to auscultation. HEART EXAMINATION: Regular rate and rhythm. S1, S2 heard. No murmurs, gallops or rub. ABDOMEN: Soft, nontender. Positive bowel sounds. EXTREMITIES: 2+ peripheral pulses, no lower extremity edema and no calf tenderness. NEUROLOGIC EXAMINATION: Patient is somnomlent on vent but able to answer some questions ASSESSMENT CAD s/p CABG x 3 09/28 Hypertension Hyperlipidemia Mild ascending aortic aneurysm 4.0 cm Remote tobacco abuse Post op Afib PLAN Continue with current regimen including aspirin Plavix, amiodarone, Metoprolol. Continue with oral amiodarone. He did go back in A. fib however heart rates controlled. Objective - Vital Signs Vital signs: Vital Signs Temp 98.2 F 10/01/24 16:00 Pulse 82 10/01/24 16:00 Resp 18 10/01/24 16:00 BP 111/67 10/01/24 16:00 Pulse Ox 95 10/01/24 16:00 FiO2 45 09/28/24 17:00 Intake & Output 09/30/24 10/01/24 10/01/24 18:59 06:59 18:59 Intake Total 286.178 350 Output Total 565 600 0 Balance -278.822 -600 350 Weight 99.9 kg 99.9 kg Intake: IV 285 0.9 255 Pressure Bags 30 Intake, IV Titration 1.178 250 Amount Albumin Human 5% 250 ml 250 In Empty Bag 1 bag @ 250 mls/hr IVPB Q1HR PRN Rx#: [id number] Insulin Regular 100 unit 1.178 In Sodium Chloride 0.9% 100 ml @ Per Protocol IV .Q0M TICO Rx#:[id number] Oral 100 Output: Chest Tube Drainage 20 Chest Tube Left Lateral 0 Chest Chest Tube Mediastinal 20 Urine 545 600 0 Other: Voiding Method Urinal Urinal Urinal ABP, PAP, CO, CI - Last Documented Arterial Blood Pressure 108/52 Pulmonary Artery Pressure 8/3 Cardiac Output 5.6 Cardiac Index 2.5 - Labs CBC & Chem 7: 10/01/24 06:18 10/01/24 06:18 Labs: Abnormal Lab Results - Last 24 Hours (Table) 09/30/24 10/01/24 10/01/24 Range/Units 21:16 06:18 06:18 WBC 12.6 H (3.8-10.6) k/uL RBC 3.08 L (4.30-5.90) m/uL Hgb 9.4 L (13.0-17.5) gm/dL Hct 29.6 L (39.0-53.0) % Sodium 129 L (137-145) mmol/L Carbon Dioxide 21 L (22-30) mmol/L Glucose 113 H (74-99) mg/dL POC Glucose (mg/dL) 119 H (70-110) mg/dL 10/01/24 10/01/24 Range/Units 11:21 16:14 WBC (3.8-10.6) k/uL RBC (4.30-5.90) m/uL Hgb (13.0-17.5) gm/dL Hct (39.0-53.0) % Sodium (137-145) mmol/L Carbon Dioxide (22-30) mmol/L Glucose (74-99) mg/dL POC Glucose (mg/dL) 121 H 127 H (70-110) mg/dL
[2024-10-01 20:31] LABS: Glucose,Whole Blood 110 mg/dL (70-110)
[2024-10-01] MEDS: ALBUMIN HUMAN 25% 50 ML IV ONE (20:43)
[2024-10-01] MEDS: CLEVIDIPINE BUTYRATE 25 MG in EMPTY BAG 1 BAG IV ONE (20:44)
[2024-10-01] MEDS: CARDIOPLEGIC SOLN (K+ 16 MEQ/L 1,000 ML with SODIUM BICARB (1 MEQ/ML) 20 ML, LIDOCAINE ... PERFUSION ONE (20:44)
[2024-10-01] MEDS: ALBUMIN HUMAN 5% 500 ML IVPB ONE (20:44)
[2024-10-01] MEDS: ASPIRIN 325 MG TAB PO ONE (20:44)
[2024-10-01] MEDS: CALCIUM CHLORIDE 100 MG/ML 10 ML SYRINGE IV ONE (20:44)
[2024-10-01] MEDS: ceFAZolin 1,000 MG in SODIUM CHLORIDE 0.9% IRRIGATIO 1,000 ML IRRIGATION ONE (20:45)
[2024-10-01] MEDS: TRANEXAMIC ACID 2,000 MG in SODIUM CHLORIDE 0.9% 80 ML IV ONE ×2 (20:45→20:46)
[2024-10-01] MEDS: CHLORHEXIDINE GLUCONATE 15 ML CUP MUCOUS MEM ONE (20:45)
[2024-10-01] MEDS: PHENYLEPHRINE 10 MG/ML VIAL IV ONE (20:46)
[2024-10-01] MEDS: PROTAMINE SULFATE 250 MG in EMPTY BAG 1 BAG IV ONE (20:46)
[2024-10-01] MEDS: SODIUM CHLORIDE 0.9% 1,000 ML IV ONE (20:46)
[2024-10-01] MEDS: PROTAMINE SULFATE 10 MG/ML 25 ML VIAL IV ONE (20:46)
[2024-10-01] MEDS: NOREPINEPHRINE 4 MG in SODIUM CHLORIDE 0.9% 250 ML IV ONE (20:46)
[2024-10-01] MEDS: PAPAVERINE 360 MG in SODIUM CHLORIDE 0.9% 90 ML IV ONE (20:46)
[2024-10-01] MEDS: propofoL 1,000 MG/100 ML VIAL IV ONE (20:47)
[2024-10-01] MEDS: PHENYLEPHRINE 40 MG in SODIUM CHLORIDE 0.9% 250 ML IV ONE (20:47)
[2024-10-01] MEDS: SODIUM BICARB 8.4% 50 ML SYR (1 MEQ/ML) IV ONE (20:47)
[2024-10-01] MEDS: HEPARIN SODIUM,PORCINE (1 ML) 5,000 UNIT in SODIUM CHLORIDE 0.9% 500 ML 500 ML IV ONE (20:48)
[2024-10-01] MEDS: HEPARIN SODIUM 1,000 UN/ML (10ML VL) IV ONE (20:48)
[2024-10-01] MEDS: NITROGLYCERIN-D5W PMX 25 MG/250 ML BTL IV ONE (20:49)
[2024-10-01] MEDS: MANNITOL 25% 12.5 GM/50 ML VIAL IV ONE (20:49)
[2024-10-01] MEDS: MAGNESIUM SULFATE 16.24 MEQ in EMPTY SYRINGE 1 SYR IV ONE (20:49)
[2024-10-01] MEDS: NITROGLYCERIN-D5W PMX 50 MG in DEXTROSE/WATER 1 250ML.BAG IV ONE (20:49)
[2024-10-01] MEDS: NITROGLYCERIN SL TABS 0.4 MG TAB SUBLINGUAL ONE (20:49)
[2024-10-01] MEDS: INSULIN REGULAR 100 UNIT in SODIUM CHLORIDE 0.9% 100 ML IV ONE (20:50)
[2024-10-02 06:24] LABS: Glucose,Whole Blood 94 mg/dL (70-110)
--- NOTE | 2024-10-02 08:25 | XR ---
EXAMINATION TYPE: XR chest 1V portable DATE OF EXAM: 10/02/2024 7:20 AM COMPARISON: Chest radiographs from 10/01/2024 CLINICAL INDICATION: Male, 79 years old with history of Postop CABG; TECHNIQUE: XR chest 1V portable Frontal view of the chest. FINDINGS: Lungs/Pleura: Blunting of the left costophrenic angle with some airspace opacities in the left lung b ase. Findings similar to prior. There is no evidence of pleural effusion, focal consolidation, or pne umothorax. Pulmonary vascularity: Unremarkable. Heart/mediastinum: Cardiomediastinal silhouette is unremarkable. Left atrial appendage occlusion hao ce is present. Musculoskeletal: No acute osseous pathology. Midline sternotomy wires are noted. IMPRESSION: Left basilar atelectasis and/or airspace disease with possible left pleural effusion. Findings are si gnificantly changed from prior. [facility], , 10/02/2024 8:23 AM
[2024-10-02 08:38] LABS: HCT 26.2 % (39.0-53.0); HGB 8.7 gm/dL (13.0-17.5); MCH 31.2 pg (25.0-35.0); MCHC 33.4 g/dL (31.0-37.0); MCV 93.4 fL (80.0-100.0); Mean Platelet Volume 8.2; Platelet Count 242 k/uL (150-450); RDW 13.8 % (11.5-15.5); WBC 9.1 k/uL (3.8-10.6)
[2024-10-02 08:56] LABS: African American GFR (CKD) >90 (>60 ml/min/1.73 sqM); Anion Gap 6 mmol/L; Blood Urea Nitrogen 22 mg/dL (9-20); Calcium 8.4 mg/dL (8.4-10.2); Carbon Dioxide 25 mmol/L (22-30); Chloride 100 mmol/L (98-107); Glucose 108 mg/dL (74-99); Magnesium 2.3 mg/dL (1.6-2.3); Non-African American GFR(CKD) 78 (>60 ml/min/1.73 sqM); Potassium 4.2 mmol/L (3.5-5.1); Sodium 131 mmol/L (137-145)
--- NOTE | 2024-10-02 09:32 | P.PN ---
Subjective Progress Note Date: 10/02/24 Principal diagnosis: Coronary artery disease. Past medical history significant for hypertension, dyslipidemia, osteoarthritis, hard of hearing and a remote history of nicotine dependence quit smoking 30 years ago. POD #4 off-pump coronary artery bypass grafting x 3 with CAMPO to LAD, saphenous vein graft to first diagonal, hybrid conduit saphenous vein/left radial artery to posterior descending coronary artery, EVH of the left greater saphenous vein from the left thigh, endoscopic harvest of the left radial artery, ligation of the left atrial appendage with a 40 mm AtriCure clip. Postoperative acute blood loss anemia, expected given hemodilution. The patient was seen and examined in follow-up today October 02, 2024 at his bedside on the third floor cardiac stepdown unit. He is currently sitting up to the bedside chair, is awake, alert, oriented x 3 and is in no acute apparent distress. States he has no pain at this time, and has not taken any pain medication within the last 24 hours. He denies any complaints of shortness of breath. He reports he has been up ambulating in the cardiac stepdown unit hallway with standby assistance from nursing and therapy staff and tolerating well. He tolerated a first postoperative shower yesterday. Remote telemetry is showing normal sinus rhythm heart rate 81 bpm, no further episodes of atrial fibrillation reported. He continues on metoprolol to tartrate 12.5 mg p.o. twice daily and amiodarone 400 mg p.o. twice daily. Oxygen saturations are 95% on room air and he is achieving 2500 mL on his incentive spirometry with encouragement. He remains hemodynamically stable and is currently on no inotropic or pressor support. Laboratory and chest x-ray results reviewed. Objective - Vital Signs Vital signs: Vital Signs Temp 97.8 F 10/01/24 23:35 Pulse 80 10/02/24 08:43 Resp 17 10/01/24 23:35 BP 120/71 10/01/24 23:35 Pulse Ox 95 10/01/24 23:35 FiO2 45 09/28/24 17:00 Intake & Output 10/01/24 10/02/24 10/02/24 18:59 06:59 18:59 Intake Total 350 160 Output Total 0 300 Balance 350 -140 Weight 99.9 kg Intake: Intake, IV Titration 250 Amount Albumin Human 5% 250 ml 250 In Empty Bag 1 bag @ 250 mls/hr IVPB Q1HR PRN Rx#: [id number] Oral 100 160 Output: Urine 0 300 Other: Voiding Method Urinal Urinal ABP, PAP, CO, CI - Last Documented Arterial Blood Pressure 108/52 Pulmonary Artery Pressure 8/3 Cardiac Output 5.6 Cardiac Index 2.5 - Exam CONSTITUTIONAL: Sitting up to the bedside chair in the intensive care unit, appears comfortable, cooperative, no apparent acute distress. HEENT: Neck is supple, no JVD, no lymphadenopathy. RESPIRATORY: Lungs sounds essentially clear throughout, diminished to his bilateral bases, left greater than right. Respirations are symmetrical and nonlabored. Currently on room air with oxygen saturations 95%. Able to achieve 2500 mL on his incentive spirometry. Strong cough. CARDIOVASCULAR: Regular rhythm and rate. S1 and S2 present, negative for S3, gallop or murmur. Remote telemetry showing normal sinus rhythm heart rate 81 bpm. Sternum is stable. Palpable peripheral pulses bilaterally, trace edema to his bilateral lower extremities. No calf pain or tenderness noted. Heart hugger in place with patient demonstrating appropriate use. Knee-high DONTE hose and sequential compression devices in place to his bilateral lower extremities. GASTROINTESTINAL: Abdomen soft, nontender, nondistended. Active bowel sounds present 4 quadrants. Tolerating diet. Passing flatus. No guarding or rigidity. GENITOURINARY: Continues to void. Urine output 300 mL in the last 8 hours. INTEGUMENTARY: Skin is warm and dry with no evidence of clubbing or cyanosis. Midline sternal incision clean dry and well approximated, covered with dry intact dressing. Right lower extremity EVH sites well approximated without redness or drainage. Left arm radial artery harvest sites clean, dry and approximated. No drainage or redness is present. NEUROLOGIC: Cranial nerves II through XII intact. No focal deficits. MUSKULOSKELETAL: Able to move all extremities, strength equal bilaterally, generalized weakness. PSYCHIATRIC: Alert and oriented to person place and time, appropriate affect, intact judgment and insight. - Allied health notes Allied health notes reviewed: nursing - Labs CBC & Chem 7: 10/02/24 08:06 10/02/24 08:06 Labs: Abnormal Lab Results - Last 24 Hours (Table) 10/01/24 10/01/24 10/02/24 Range/Units 11: 16:14 08:06 RBC 2.80 L (4.30-5.90) m/uL Hgb 8.7 L (13.0-17.5) gm/dL Hct 26.2 L (39.0-53.0) % Sodium (137-145) mmol/L BUN (9-20) mg/dL Glucose (74-99) mg/dL POC Glucose (mg/dL) 121 H 127 H (70-110) mg/dL 10/02/24 Range/Units 08:06 RBC (4.30-5.90) m/uL Hgb (13.0-17.5) gm/dL Hct (39.0-53.0) % Sodium 131 L (137-145) mmol/L BUN 22 H (9-20) mg/dL Glucose 108 H (74-99) mg/dL POC Glucose (mg/dL) (70-110) mg/dL - Imaging and Cardiology Chest x-ray: report reviewed, image reviewed Assessment and Plan Assessment: Multivessel coronary artery disease, status post off-pump coronary artery bypass grafting surgery x 3 vessels Postoperative acute blood loss anemia, expected given hemodilution Paroxysmal atrial fibrillation, a known common occurrence after cardiac surgery Hypertension Dyslipidemia, treated, triglycerides 137, cholesterol 164, LDL 89 Hard of hearing Osteoarthritis Remote history of nicotine dependence quit smoking 30 years ago Plan: Will continue to maximize medical therapy with aspirin, statin, Plavix and beta- angie. Increase metoprolol tartrate as tolerated with hold parameters. Continue midodrine 5 mg p.o. twice daily. Continue amiodarone 400 mg p.o. twice daily. Encourage incentive spirometry use 10 times every hour while awake. Bronchodilators per pulmonology Increase activity as tolerated. PT/OT/cardiac rehab following. Continue home dose of folic acid. GI/DVT prophylaxis. Will monitor daily labs and chest x-rays, electrolyte replacement per protocol. Pain control per current medication regimen. Insulin management per internal medicine, patient is not diabetic, preoperative hemoglobin A1c 6.0%. May bladder scan every 6 hours and as needed postvoid residual, if greater than 300 mL of PVR may straight cath. Continue to monitor strict accurate intake and output. Discharge planning is in place, anticipate discharge home with home health care in the next 48 hours. Shower daily. Continue daily weights. Sodium today is 131, continue 1500 mL in 24-hour fluid restriction. More recommendations to follow based on patient's clinical course. Time with Patient: Greater than 30
[2024-10-02 11:40] LABS: Glucose,Whole Blood 99 mg/dL (70-110)
--- NOTE | 2024-10-02 12:07 | P.PN ---
Subjective Progress Note Date: 10/02/24 Principal diagnosis: Open heart surgery. This is an 79-year-old male patient with a known history of coronary artery disease who was brought in today electively for an off-pump coronary artery bypass grafting x 3. He received a CAMPO to the LAD, saphenous vein graft to the first diagonal, saphenous vein graft/left radial artery to the PDA. He did undergo left atrial appendage clipping. Postoperative day #0. He is seen upon his return to the intensive care unit. He is currently on the mechanical ventilator and assist-control mode at a rate of 14, tidal volume 550, FiO2 60% and a PEEP of 5. Arterial blood gases on 100% FiO2 revealed a PaO2 of 280, pCO2 of 39 and a pH of 7.39. White count 14.8. Hemoglobin 9.5. Platelet count 201. Glucose 115. Chest x-ray revealed appropriate placement of the endotracheal tube, nasogastric tube and Millwood-Kathi catheter. Left thoracotomy and mediastinal chest tubes in place. No evidence of pneumothorax. He is currently off the propofol. He remains on nitroglycerin drip at 5 mcg/min. Cardizem drip at 5 mg/h. Normal saline at 50 mL/h. Urine output is adequate. Cardiac output 5.7. Cardiac index 2.6. PA pressures 13/8. CVP 5. Sternal dressing is dry and intact. Heart hugger in place. Left radial site covered with Noam wrap. JUAN JOSE drain in place. Bilateral lower extremity Noam wraps in place. SCDs in place. He is initiated on DuoNeb inhalations. Heparin for DVT prophylaxis. The patient was seen today September 29, 2024 in follow-up. Postoperative day #1. He was extubated at approximately 5:30 last evening. He is currently sitting up in a chair at the bedside. Awake and alert in no acute distress. He is currently maintaining good O2 saturations in the 90s on 2 L/min per nasal cannula. He is afebrile. Hemodynamically stable. He remains on normal saline at 50 mL/h. Insulin drip at 1.5 units/h. He is working well with the incentive spirometer. Cardiac output 5.6. Cardiac index 2.5. PA pressure 13/8. CVP 3. Left and mediastinal chest tubes remain in place. Chest x-ray reveals postsurgical changes with blunting of the left costophrenic angle. White count 11.6. Hemoglobin 9.8. Platelets 222. Sodium 134. Potassium 3.9. Bicarb 25. BUN 14. Creatinine 0.71. Glucose 120. He continues to work well with the incentive spirometer. He remains on bronchodilators. Heparin for DVT pro phylaxis. The patient was seen today September 30, 2024 in follow-up. Postoperative day #2. He is currently resting comfortably in bed. Awake and alert in no acute distress. Chest tubes have been removed. He did develop atrial fibrillation with rapid ventricular response approximately 430 this morning. He has received amiodarone bolus and is currently on a amiodarone drip at 1 mg/h. He has normal saline at 40 mL/h. Insulin drip is on hold. Lets 208. Sodium 129. Potassium 4.3. Bicarb 24. BUN 16. Creatinine 0.85. Glucose 107. He remains on bronchodilators. Heparin for DVT prophylaxis. The patient is seen today October 01, 2024 in follow-up. Postoperative day #3. He is currently sitting up in a chair at the bedside. Awake and alert in no acute distress. Continue good O2 saturations in the 90s on 2 L/min per nasal cannula. He has been up ambulating with assistance. Chest x-ray reveals postsurgical changes with some airspace opacities. No significant change compared to previous. White count 12.6. Hemoglobin 9.4. Platelets 205. Sodium 129. Potassium 4.1. Bicarb 21. BUN 18. Creatinine 0.91. Glucose 113. He has been transitioned to oral amiodarone. Remains on heparin for DVT prophylaxis. Continued on bronchodilators. Working well with the incentive spirometer. Progress note dated October 02, 2024. 79-year-old male status post open heart surgery. He is seen today in room 360. He is on room air. No fluids. The patient is awake and alert. He denies any complaints at this time. White count 9.1, hemoglobin 8.7, hematocrit 26.2, platelet count 3-42,000. Sodium 131, potassium 4.2, chlorides 100, CO2 25, BUN 22, creatinine 0.92. Glucose 99. Chest x-ray shows some basilar atelectasis. Objective - Vital Signs Vital signs: Vital Signs Temp 98.1 F 10/02/24 11:10 Pulse 75 10/02/24 11:10 Resp 16 10/02/24 11:10 BP 129/80 10/02/24 11:10 Pulse Ox 97 10/02/24 11:10 FiO2 45 09/28/24 17:00 Intake & Output 10/01/24 10/02/24 10/02/24 18:59 06:59 18:59 Intake Total 350 160 Output Total 0 300 Balance 350 -140 Weight 99.9 kg Intake: Intake, IV Titration 250 Amount Albumin Human 5% 250 ml 250 In Empty Bag 1 bag @ 250 mls/hr IVPB Q1HR PRN Rx#: [id number] Oral 100 160 Output: Urine 0 300 Other: Voiding Method Urinal Urinal Urinal ABP, PAP, CO, CI - Last Documented Arterial Blood Pressure 108/52 Pulmonary Artery Pressure 8/3 Cardiac Output 5.6 Cardiac Index 2.5 - Exam No acute distress, oriented 3. HEENT examination is grossly unremarkable. Mucous membranes are moist. No oral lesions. Neck supple. Full range of motion. No adenopathy thyromegaly or neck vein distention. Cardiovascular examination reveals regular rhythm rate. S1-S2 normal. No S3 or S4. No discernible murmur noted. Lungs reveal mostly clear breath sounds. Minimal rhonchi. No wheezes or crackles. Breath sounds equal. Abdomen soft bowel sounds are heard. No masses or tenderness. Extremities are intact. No cyanosis clubbing or edema. Skin is without rash or lesion. Neurologic examination is brief but nonfocal. - Labs CBC & Chem 7: 10/02/24 08:06 10/02/24 08:06 Labs: Abnormal Lab Results - Last 24 Hours (Table) 10/01/24 10/02/24 10/02/24 Range/Units 16:14 08:06 08:06 RBC 2.80 L (4.30-5.90) m/uL Hgb 8.7 L (13.0-17.5) gm/dL Hct 26.2 L (39.0-53.0) % Sodium 131 L (137-145) mmol/L BUN 22 H (9-20) mg/dL Glucose 108 H (74-99) mg/dL POC Glucose (mg/dL) 127 H (70-110) mg/dL Assessment and Plan Assessment: Coronary artery disease status post coronary artery bypass grafting x 3, off- pump, received a CAMPO to the LAD, saphenous vein graft to the first diagonal, hybrid conduit saphenous vein/left radial arterial graft to the PDA. Left atrial appendage clipping. Postoperative day #4. Mechanical ventilator management, expected outcome of surgery. Atrial fibrillation, not an unexpected outcome of surgery. History of hypertension. History of rheumatoid arthritis. Remote history of smoking, quit over 30 years ago. Plan: Plan dated October 02, 2024. The patient is seen today in room 360. He is on room air. The patient is not receiving any IV fluids. He continues to use his incentive spirometer, every hour. We also recommend deep breathing, coughing, clearing of secretions. Labs, x-rays, and all medications are reviewed. We will continue to follow make recommendations along the way. Cardiothoracic surgery is working on his discharge. Dictation was produced using [employer] dictation software. Please excuse any grammatical, word or spelling errors. Time with Patient: Less than 30
--- NOTE | 2024-10-02 14:19 | P.PN ---
Subjective Progress Note Date: 10/02/24 Subjective: Patient seen and examined at bedside. No acute events overnight. Pertinent positives and negatives as discussed above, a complete review of systems was performed and all other systems are negative. Vitals Signs Reviewed. General: Nontoxic, no distress, appears at stated age Derm: Warm, dry, dressing clean, dry, intact Head: Atraumatic, normocephalic, symmetric Eyes: EOMI, no lid lag, anicteric sclera Mouth: No lip lesion, mucus membranes moist Cardiovascular: S1S2 reg, no murmur Lungs: CTA bilateral, no rhonchi, no rales, no accessory muscle use Abdominal: Soft, nontender to palpation, no guarding, no appreciable organomegaly Ext: No gross muscle atrophy, no edema, no contractures Neuro: CN II-XI grossly intact, no focal neuro deficits Psych: Alert, oriented, appropriate affect Data Reviewed Today: Pertinent Labs: WBC 9.1, hemoglobin 8.7, sodium 131, creatinine 0.92, blood sugars range between 94-1 08, magnesium 2.3 Imaging: Chest x-ray independently interpreted, shows postoperative changes, similar to yesterday Assessment and Plan: Active: CAD status post CABG Acute blood loss anemia, anticipated outcome of surgery Leukocytosis, anticipated outcome of surgery, resolved Paroxysmal atrial fibrillation Hypertension Dyslipidemia Mild hypovolemic hyponatremia Non-anion gap metabolic acidosis, resolved -Cardiothoracic surgery note reviewed, discharge planning, possible discharge in 48 hours with home care -Also on midodrine 5 twice daily, holding antihypertensives, amiodarone 400 twice daily, aspirin 325 daily, atorvastatin 40 daily, Plavix 75 daily, met oprolol 12.5 twice daily -On Protonix 40 daily for GI prophylaxis, and Toradol 15 IV every 6 hours for pain -Repeat CBC and BMP tomorrow Hyperglycemia Prediabetes -A1c 5.9 -Sliding scale insulin, ACHS, monitor for hypoglycemia Rheumatoid arthritis -Resume methotrexate outpatient Thank you for allowing us to participate in the care of this pleasant patient. Do not hesitate to contact us with questions. Someone can be reached from the [facility] hospitalist group all hours of the day at [phone] or via perfect serve. Objective - Vital Signs Vital signs: Vital Signs Temp 98.1 F 10/02/24 11:10 Pulse 82 10/02/24 12:19 Resp 16 10/02/24 11:10 BP 129/80 10/02/24 11:10 Pulse Ox 97 10/02/24 11:10 FiO2 45 09/28/24 17:00 Intake & Output 10/01/24 10/02/24 10/02/24 18:59 06:59 18:59 Intake Total 350 160 Output Total 0 300 Balance 350 -140 Weight 99.9 kg Intake: Intake, IV Titration 250 Amount Albumin Human 5% 250 ml 250 In Empty Bag 1 bag @ 250 mls/hr IVPB Q1HR PRN Rx#: [id number] Oral 100 160 Output: Urine 0 300 Other: Voiding Method Urinal Urinal Urinal # Voids 1 ABP, PAP, CO, CI - Last Documented Arterial Blood Pressure 108/52 Pulmonary Artery Pressure 8/3 Cardiac Output 5.6 Cardiac Index 2.5 - Labs CBC & Chem 7: 10/02/24 08:06 10/02/24 08:06 Labs: Abnormal Lab Results - Last 24 Hours (Table) 10/01/24 10/02/24 10/02/24 Range/Units 16:14 08:06 08:06 RBC 2.80 L (4.30-5.90) m/uL Hgb 8.7 L (13.0-17.5) gm/dL Hct 26.2 L (39.0-53.0) % Sodium 131 L (137-145) mmol/L BUN 22 H (9-20) mg/dL Glucose 108 H (74-99) mg/dL POC Glucose (mg/dL) 127 H (70-110) mg/dL
--- NOTE | 2024-10-02 14:42 | P.PN ---
Subjective Progress Note Date: 10/02/24 This is a pleasant 79 year-old with past medical history significant for hypertension, hyperlipidemia, mild ascending aortic aneurysm 4.0cm, multivessel CAD and remote tobacco abuse who presented for elective CABG. Patient follows in the office with Dr Blue. He has been noting exertional chest pain and dyspnea with exertion over the last 2-3 months and had workup including echo which showed preserved EF 55% and stress echo which showed inducible ischemia. He underwent diagnostic LHC which showed a multivessel CAD 80-90% LAD, circumflex and RCA disease. He underwent successful CABG x 3 and RODRI ligation today with CAMPO to LAD, SVG to diagonal and hybrid SVG/radial to PDA. He is currently intubated and sedated however able to nod his head to answer some questions. He is on a nitro and cardizem drip. He is off of pressors. He is in normal sinus rhythm. Xray shows appropriate lines and small left pleural effusion. 09/29 patient seen and examined. Patient denies any chest pain or pressure. Does not have much of an appetite. Has been off of any vasopressors. Hemoglobin 9.8, creatinine 0.7. 09/30 Patient seen and examined. Patient overall states he feels okay. He'll not much of an appetite. He did go into A. fib with relatively controlled rates at approximately 4:30 this morning. He was given amiodarone bolus and drip. No chest pain or pressure. 10/01 Seen and examined. Denies any chest pain or pressure. Has more of an appetite today. He did go back in A. fib with controlled ventricular rates however currently back in normal sinus rhythm with heart rates in the 70s and 80s. 10/02 Patient is seen and examined. Patient has been transferred out of the intensive care unit and seen today on the cardiac stepdown unit. Blood pressure 121/65, heart rate 71, pulse ox 94% on room air. Repeat blood work reveals hemoglobin 8.7. Patient is reaching 2500 mL on incentive spirometry. Anticipate discharge home in the next 1 to 2 days PHYSICAL EXAMINATION Vital signs reviewed. CONSTITUTIONAL: No apparent distress, intubated and sedated. HEENT: Head is normocephalic. Pupils are equal, round. Sclerae anicteric. Mucous membranes of the mouth are moist. No JVD. No carotid bruit. CHEST EXAMINATION: Lungs are clear to auscultation. HEART EXAMINATION: Regular rate and rhythm. S1, S2 heard. No murmurs, gallops or rub. ABDOMEN: Soft, nontender. Positive bowel sounds. EXTREMITIES: 2+ peripheral pulses, no lower extremity edema and no calf tenderness. NEUROLOGIC EXAMINATION: Patient is somnomlent on vent but able to answer some questions ASSESSMENT CAD s/p CABG x 3 09/28 Hypertension Hyperlipidemia Mild ascending aortic aneurysm 4.0 cm Remote tobacco abuse Post op Afib PLAN Continue with current regimen including aspirin Plavix, amiodarone, Metoprolol. Continue with oral amiodarone. Nurse practitioner note has been reviewed, I agree with documented findings and plan of care. Patient was seen and examined. Objective - Vital Signs Vital signs: Vital Signs Temp 98.6 F 10/02/24 08:30 Pulse 80 10/02/24 08:43 Resp 16 10/02/24 08:30 BP 121/65 10/02/24 08:30 Pulse Ox 94 L 10/02/24 08:30 FiO2 45 09/28/24 17:00 Intake & Output 10/01/24 10/02/24 10/02/24 18:59 06:59 18:59 Intake Total 350 160 Output Total 0 300 Balance 350 -140 Weight 99.9 kg Intake: Intake, IV Titration 250 Amount Albumin Human 5% 250 ml 250 In Empty Bag 1 bag @ 250 mls/hr IVPB Q1HR PRN Rx#: [id number] Oral 100 160 Output: Urine 0 300 Other: Voiding Method Urinal Urinal Urinal ABP, PAP, CO, CI - Last Documented Arterial Blood Pressure 108/52 Pulmonary Artery Pressure 8/3 Cardiac Output 5.6 Cardiac Index 2.5 - Labs CBC & Chem 7: 10/02/24 08:06 10/02/24 08:06 Labs: Abnormal Lab Results - Last 24 Hours (Table) 10/01/24 10/01/24 10/02/24 Range/Units 11: 16:14 08:06 RBC 2.80 L (4.30-5.90) m/uL Hgb 8.7 L (13.0-17.5) gm/dL Hct 26.2 L (39.0-53.0) % Sodium (137-145) mmol/L BUN (9-20) mg/dL Glucose (74-99) mg/dL POC Glucose (mg/dL) 121 H 127 H (70-110) mg/dL 10/02/24 Range/Units 08:06 RBC (4.30-5.90) m/uL Hgb (13.0-17.5) gm/dL Hct (39.0-53.0) % Sodium 131 L (137-145) mmol/L BUN 22 H (9-20) mg/dL Glucose 108 H (74-99) mg/dL POC Glucose (mg/dL) (70-110) mg/dL
[2024-10-02 16:35] LABS: Glucose,Whole Blood 133 mg/dL (70-110)
[2024-10-02 20:29] LABS: Glucose,Whole Blood 115 mg/dL (70-110)
[2024-10-03 00:27] VITALS: RESP 18
[2024-10-03 06:10] LABS: Glucose,Whole Blood 115 mg/dL (70-110)
--- NOTE | 2024-10-03 08:07 | XR ---
EXAMINATION TYPE: XR chest 1V portable DATE OF EXAM: 10/03/2024 COMPARISON: 10/02/2024 HISTORY: Postop CABG TECHNIQUE: Single frontal view of the chest is obtained. FINDINGS: There are sternal wires and vascular clips indicating prior CABG surgery. The heart is moderately enlarged. The pulmonary vasculature appears mildly congested. There is no pneumothorax. IMPRESSION: Postop CABG changes as described above. There is been no significant interval change. [facility], , 10/03/2024 8:05 AM
[2024-10-03] MEDS: METOPROLOL SUCCINATE (ER) 25 MG TAB.ER.24H PO SCH (08:30)
--- NOTE | 2024-10-03 08:56 | P.PN ---
Subjective Progress Note Date: 10/03/24 Principal diagnosis: Coronary artery disease. Past medical history significant for hypertension, dyslipidemia, osteoarthritis, hard of hearing and a remote history of nicotine dependence quit smoking 30 years ago. POD #5 off-pump coronary artery bypass grafting x 3 with CAMPO to LAD, saphenous vein graft to first diagonal, hybrid conduit saphenous vein/left radial artery to posterior descending coronary artery, EVH of the left greater saphenous vein from the left thigh, endoscopic harvest of the left radial artery, ligation of the left atrial appendage with a 40 mm AtriCure clip. Postoperative acute blood loss anemia, expected given hemodilution. The patient was seen and examined in follow-up today October 03, 2024 at his bedside on the third floor cardiac stepdown unit. He is currently sitting up in bed, is awake, alert, oriented x 3 and is in no acute apparent distress. He denies any complaints of pain or shortness of breath at this time. He states that he is been urinating and had a bowel movement throughout the night without difficulty. Oxygen saturations are 93% on room air and he is achieving 1500 mL on his incentive spirometry with encouragement. Remote telemetry is showing normal sinus rhythm heart rate 84 bpm, the patient has had some episodes of paroxysmal atrial fibrillation throughout the night with heart rates in the 80s. He is maintained on metoprolol succinate 25 mg p.o. daily and amiodarone 400 mg p.o. twice daily with taper. He reports he has been up ambulating in the cardiac stepdown unit hallway with standby assistance from nursing and therapy staff and tolerating well. Discharge planning is in place. Chest x-ray results reviewed, laboratory results remain pending. Objective - Vital Signs Vital signs: Vital Signs Temp 98 F 10/03/24 04:00 Pulse 87 10/03/24 04:00 Resp 18 10/03/24 04:00 BP 99/61 10/03/24 04:00 Pulse Ox 93 L 10/03/24 04:00 FiO2 45 09/28/24 17:00 Intake & Output 10/02/24 10/03/24 10/03/24 18:59 06:59 18:59 Intake Total 160 Output Total 800 Balance -640 Intake: Oral 160 Output: Urine 800 Other: Voiding Method Urinal Urinal # Voids 1 2 ABP, PAP, CO, CI - Last Documented Arterial Blood Pressure 108/52 Pulmonary Artery Pressure 8/3 Cardiac Output 5.6 Cardiac Index 2.5 - Exam CONSTITUTIONAL: Appears comfortable, cooperative, no apparent acute distress. HEENT: Neck is supple, no JVD, no lymphadenopathy. RESPIRATORY: Lungs sounds essentially clear throughout, diminished to his bilateral bases, left greater than right. Respirations are symmetrical and nonlabored. Currently on room air with oxygen saturations 93%. Able to achieve 1500 mL on his incentive spirometry. Strong cough. CARDIOVASCULAR: Regular rhythm and rate. S1 and S2 present, negative for S3, gallop or murmur. Remote telemetry showing normal sinus rhythm heart rate 84 bpm. Sternum is stable. Palpable peripheral pulses bilaterally, trace edema to his bilateral lower extremities. No calf pain or tenderness noted. Heart hugger in place with patient demonstrating appropriate use. Knee-high DONTE hose and sequential compression devices in place to his bilateral lower extremities. GASTROINTESTINAL: Abdomen soft, nontender, nondistended. Active bowel sounds present 4 quadrants. Tolerating diet. Passing flatus. No guarding or rigidity. Bowel movement today 10/03/2024. GENITOURINARY: Continues to void. INTEGUMENTARY: Skin is warm and dry with no evidence of clubbing or cyanosis. Midline sternal incision clean dry and well approximated, covered with dry intact dressing. Right lower extremity EVH sites well approximated without redness or drainage. Left arm radial artery harvest sites clean, dry and approximated. No drainage or redness is present. NEUROLOGIC: Cranial nerves II through XII intact. No focal deficits. MUSKULOSKELETAL: Able to move all extremities, strength equal bilaterally, generalized weakness. PSYCHIATRIC: Alert and oriented to person place and time, appropriate affect, intact judgment and insight. - Allied health notes Allied health notes reviewed: nursing - Labs CBC & Chem 7: 10/02/24 08:06 10/02/24 08:06 Labs: Abnormal Lab Results - Last 24 Hours (Table) 10/02/24 10/02/24 10/02/24 Range/Units 08:06 08:06 16:30 RBC 2.80 L (4.30-5.90) m/uL Hgb 8.7 L (13.0-17.5) gm/dL Hct 26.2 L (39.0-53.0) % Sodium 131 L (137-145) mmol/L BUN 22 H (9-20) mg/dL Glucose 108 H (74-99) mg/dL POC Glucose (mg/dL) 133 H (70-110) mg/dL 10/02/24 10/03/24 Range/Units 20:27 06:08 RBC (4.30-5.90) m/uL Hgb (13.0-17.5) gm/dL Hct (39.0-53.0) % Sodium (137-145) mmol/L BUN (9-20) mg/dL Glucose (74-99) mg/dL POC Glucose (mg/dL) 115 H 115 H (70-110) mg/dL - Imaging and Cardiology Chest x-ray: report reviewed, image reviewed Assessment and Plan Assessment: Multivessel coronary artery disease, status post off-pump coronary artery bypass grafting surgery x 3 vessels Postoperative acute blood loss anemia, expected given hemodilution Paroxysmal atrial fibrillation, a known common occurrence after cardiac surgery Hypertension Dyslipidemia, treated, triglycerides 137, cholesterol 164, LDL 89 Hard of hearing Osteoarthritis Remote history of nicotine dependence quit smoking 30 years ago Plan: Will continue to maximize medical therapy with low-dose aspirin, statin, and beta-angie. We will discontinue his Plavix, and reduce his aspirin to 81 mg p.o. daily and start him on Eliquis 5 mg p.o. twice daily due to his episodes of paroxysmal atrial fibrillation. Continue midodrine 5 mg p.o. twice daily. Continue amiodarone 400 mg p.o. twice daily will taper as an outpatient. Encourage incentive spirometry use 10 times every hour while awake. Bronchod ilators per pulmonology Increase activity as tolerated. PT/OT/cardiac rehab following. Continue home dose of folic acid. GI/DVT prophylaxis. Pain control per current medication regimen. Insulin management per internal medicine, patient is not diabetic, preoperative hemoglobin A1c 6.0%. Continue to monitor strict accurate intake and output. Discharge planning is in place, anticipate discharge home with home health care in the next 24 hours. Shower daily. Continue daily weights. Methotrexate will be held for 1 month post myocardial revascularization surgery. More recommendations to follow based on patient's clinical course. Time with Patient: Greater than 30
--- NOTE | 2024-10-03 09:00 | P.DS ---
Providers Date of admission: 09/28/24 05:34 Expected date of discharge: 10/03/24 Attending physician: Camron Pritchett Consults: 09/28/24 12:47 Consult Physician Routine Consulting Provider: Cecilio Schmidt Consult Reason/Comments: Academic Support Director Consult: post cardiac surgery Do you want consulting provider notified?: Yes Consult Physician Routine Consulting Provider: Salvador Blue Consult Reason/Comments: Nuclear Equipment Operator Consult: post cardiac surgery Do you want consulting provider notified?: Yes Consult Physician Routine Consulting Provider: Atif Watts Consult Reason/Comments: Medical, Management Do you want consulting provider notified?: Yes Primary care physician: Salvador Inman [facility] Course: FINAL DIAGNOSIS: Multivessel coronary artery disease, status post off-pump coronary artery bypass grafting surgery x 3 vessels Postoperative acute blood loss anemia, expected given hemodilution Paroxysmal atrial fibrillation, a known common occurrence after cardiac surgery Hypertension Dyslipidemia, treated, triglycerides 137, cholesterol 164, LDL 89 Hard of hearing Rheumatoid arthritis, on methotrexate as an outpatient Remote history of nicotine dependence quit smoking 30 years ago PRINCIPAL PROCEDURE: 1. Off-pump coronary artery bypass grafting x 3 with CAMPO to LAD, saphenous vein graft to first diagonal, hybrid conduit saphenous vein/left radial artery to posterior descending coronary artery 2. Endoscopic vein harvest of the left greater saphenous vein from the left thigh 3. Endoscopic harvest of the left radial artery 4. Ligation of the left atrial appendage with a 40 mm AtriCure clip HISTORY OF PRESENT ILLNESS: This is an 79-year-old gentleman who follows on an outpatient basis with Dr. Salvador Inman he has a past medical history si gnificant for for his primary care and with Dr. Blue for his cardiology care. Recently, the patient has had complaints of dyspnea on exertion associated with some diaphoresis which goes away with rest. Due to these complaints of dyspnea the patient underwent a stress test which was abnormal, with the stress test showing apical and anteroapical stress-induced wall motion abnormality. Due to the results on the stress test the patient underwent a transthoracic 2D echocardiogram completed on September 02, 2024 which showed a normal left ventricular size with normal function, an ejection fraction of 55%, small hypokinetic area of the inferoseptal wall at the base, mild mitral valve regurgitation directed centrally, trace tricuspid valve regurgitation and trace pulmonic valve regurgitation. It also demonstrated the aortic root to be enlarged and the ascending aorta to be enlarged. Subsequently, the patient was recommended to undergo a cardiac catheterization due to the abnormal stress test which was completed on September 21, 2024. The cardiac catheterization revealed severe calcified three-vessel disease with a 90% proximal left anterior descending coronary artery disease stenosis with a 5 mm aneurysm, an 80 to 90% proximal left circumflex calcific stenosis and an 80% proximal right coronary artery calcific stenosis. Due to the findings on the cardiac catheterization a consult was placed to Dr. Camron Pritchett from cardiothoracic surgery for further evaluation and treatment recommendations including myocardial vascularization surgery. The patient met with Dr. Pritchett on an outpatient basis on September 23, 2024, treatment options were discussed with the patient and his family members present including myocardial revascularization surgery. Risks and benefits of surgery including the STS risk or were discussed and knowing and understanding the risks the patient wished to proceed with the surgical option. HOSPITAL COURSE: The patient was brought to the hospital on 09/28/24, taken to the preoperative area, prepared in the usual fashion, and subsequently taken to the operating room where Dr. Camron Pritchett performed an off-pump coronary artery bypass grafting x 3 with CAMPO to LAD, saphenous vein graft to first diagonal, hybrid conduit saphenous vein/left radial artery to posterior descending coronary artery. Upon completion of surgery the patient was transferred to the cardiovascular intensive care unit where he was recovered and monitored hemodynamically. He was subsequently transferred to the third floor cardiac stepdown unit for further monitoring and rehabilitation. His oxygen was titrated down, he continued to work with physical and occupational therapy, he was tolerating oral diet, his pain was controlled, and he was ready to be discharged home on postoperative day #5 with [facility]. He received written and verbal instruction regarding his medications, activity restrictions, signs and symptoms requiring physician notification, and follow-up appointments. Plan - Discharge Summary Discharge Rx Participant: Yes New Discharge Prescriptions: New Midodrine [ProAmatine] 5 mg PO AC-BID #60 tab Sennosides-Docusate Sodium [Senokot-S] 2 each PO HS #14 tab Aspirin 81 mg PO DAILY #30 tab Apixaban [Eliquis] 5 mg PO BID #60 tab Amiodarone [Cordarone] 400 mg PO BID #43 tab Pantoprazole [Protonix] 40 mg PO AC-BRKFST #30 tab Acetaminophen Tab [Tylenol] 1,000 mg PO Q6HR PRN tab PRN Reason: Fever And/ Or Mild Pain (1-3) Continue Folic Acid 1 mg PO QAM Atorvastatin [Lipitor] 40 mg PO QAM Metoprolol Succinate [Metoprolol Succinate ER] 25 mg PO DAILY 30 Days #30 tab Discontinued metHOTREXate sodium [Methotrexate] 3 tab PO WE Losartan [Cozaar] 25 mg PO QAM Aspirin 81 mg PO QAM Discharge Medication List Folic Acid 1 mg PO QAM 03/15/14 [History] Atorvastatin [Lipitor] 40 mg PO QAM 12/10/17 [History] Metoprolol Succinate [Metoprolol Succinate ER] 25 mg PO DAILY 30 Days #30 tab 09/21/24 [Rx] Acetaminophen Tab [Tylenol] 1,000 mg PO Q6HR PRN tab 10/02/24 [Rx] Amiodarone [Cordarone] 400 mg PO BID #43 tab 10/02/24 [Rx] Midodrine [ProAmatine] 5 mg PO AC-BID #60 tab 10/02/24 [Rx] Pantoprazole [Protonix] 40 mg PO AC-BRKFST #30 tab 10/02/24 [Rx] Sennosides-Docusate Sodium [Senokot-S] 2 each PO HS #14 tab 10/02/24 [Rx] Apixaban [Eliquis] 5 mg PO BID #60 tab 10/03/24 [Rx] Aspirin 81 mg PO DAILY #30 tab 10/03/24 [Rx] Follow up Appointment(s)/Referral(s): Salvador Blue MD [Medical Doctor] - 10/16/24 2:45 pm Rehab [facility],Cardiac [NON-STAFF] - 4 Weeks Camron Pritchett MD [STAFF PHYSICIAN] - 10/22/24 2:00 pm Jesus Alberto Driscoll NPC [Nurse Practitioner] - 10/06/24 10:15 am (Please follow-up at [address] [place] [address], [facility], [address], office number is [phone]) Cecilio Schmidt DO [Doctor of Osteopathic Medicine] - 10/16/24 8:30 am [facility] [NON-STAFF] - 1-2 Days (will call to set up appointment, any questions please call agency. ) Salvador Inman, [Primary Care Provider] - 10/07/24 3:20 pm Activity/Diet/Wound Care/Special Instructions: DISCHARGE INSTRUCTIONS: 1. No driving for 4 weeks, or until physician gives their ok. 2. The patient should sleep in their own bed, no medical bed needed. 3. Stairs are not an issue. If the bedroom is upstairs, it is advised that the patient go up at night and down in the morning for the first week. Go slowly, using handrail and take 1 step at a time. 4. DONTE hose are to be worn for 30 days post surgery or until physician discontinues. 5. Heart hugger is to be worn 100% of the time until physician disconti nues.(except when showering) 6. No lifting, pushing, or pulling more than 10 pounds for 12 weeks. The physician will advise of any restriction changes. 7. The patient is expected to continue the prescribed walking program. 8. Continue pain control per as needed orders. 9. Continue with incentive spirometry and splinting/heart hugger until otherwise directed by the physician. 10. Must shower daily using liquid antibacterial soap 11. Routine sternal incision care. No powders, lotions, ointments on incisions. No dressings are necessary on incisions unless they are draining. Dermabond tape is to remain on sternal incision until surgeon follow-up. 12. Please call surgeon/MOGUL OPERATOR for temp greater than 101 F or purulent drainage from incisions. 13. You should weigh yourself daily, record and bring log with you to follow up appointments. 14. All prescriptions given by surgeon for 30 days. Refills need to be filled through health administration teacher/primary care physician. 15. A Red armband has been placed on the patient. It should be worn for 30 days post discharge from surgery and will be removed by the cardiac surgeons. If an ER visit is necessary, please make sure the number on the Red armband is called before going to ER. 16. You have been referred to and are expected to begin Cardiac Rehab in approximately 4-6 weeks. 17. Quitting smoking is the most important step you can take to improve your health. For additional information and assistance to quit smoking, please call the [employer] tobacco quit line (8-739-PVJG-NOW/ ) or online: [email or web address] 18. Hold methotrexate for 1 month post coronary artery bypass grafting surgery. [facility] followed by [facility] upon discharge from [facility]: RN SKILLED HOME CARE SERVICES FOR POST-OP SURGICAL PATIENTS WITH THE FOLLOWING: Mitral Valve Replacement/Repair ( [facility]) RN TO CONTINUE EDUCATION FROM ``ROAD TO A HEALTH HEART PATIENT EDUCATION MANUAL (GIVEN TO PATIENT IN THE HOSPITAL) MEDICATION RECONCILIATION WITH EDUCATION NEEDED ON FIRST HOME VISIT EMPHASIZE IMPORTANCE OF WEARING BREAST SUPPORT/HEART HUGGER ENCOURAGE USE OF INCENTIVE SPIROMETER 10 X EVERY HOUR WHILE AWAKE ENCOURAGE UTILIZATION OF LOWER EXTREMITY COMPRESSION STOCKINGS/DONTE HOSE and ELEVATE LEGS ABOVE LEVEL OF HEART WHILE AT REST. ENCOURAGE AMBULATION 3-5x/day INCREASING TOLERATES, WHILE AVOIDING EXTREMES IN TEMPERATURE FREQUENCY: RN TO OPEN THE PATIENT WITHIN 24 HOURS OF DISCHARGE FROM [facility] WITH TELEHEALTH INSTALLED AT [facility], RN TO VISIT 2-3 X A WEEK FOR 4 WEEKS ESTABLISHED BY PATIENT NEEDS. LABORATORY: CBC, CMP TO BE DRAWN ON THE THIRD DAY HOME, (RAN STAT) FAX RESULTS TO [phone]. TELEHEALTH PARAMETERS: WEIGHT: NOTIFY MD OF WEIGHT GAIN OF 2 LBS IN 24 HOURS OR 5 LBS IN ONE WEEK HR: NOTIFY MD OF HR <55 BPM OR HR>100 BPM BP: NOTIFY MD IF BP <90/55 OR BP>140/100 O2 SAT: NOTIFY MD IF PO2<93% ON ROOM AIR SEND TELEHEALTH REPORT TO CORE MACHINE TENDER AND CARDIOVASCULAR SURGEON THE FIRST WEEK OF CARE AND THEN BI-WEEKLY. PLEASE ADDITIONALLY COMMUNICATE ANY ABNORMALS AND NEW FINDINGS TO THE SURGEONS OFFICE. Discharge Disposition: HOME WITH HOME HEALTH SERVICES
[2024-10-03 09:43] LABS: HCT 28.9 % (39.0-53.0); HGB 9.4 gm/dL (13.0-17.5); MCH 31.3 pg (25.0-35.0); MCHC 32.7 g/dL (31.0-37.0); MCV 95.7 fL (80.0-100.0); Mean Platelet Volume 7.2; Platelet Count 310 k/uL (150-450); RBC 3.02 m/uL (4.30-5.90); RDW 13.6 % (11.5-15.5); WBC 12.3 k/uL (3.8-10.6)
[2024-10-03 10:19] LABS: African American GFR (CKD) >90 (>60 ml/min/1.73 sqM); Anion Gap 7 mmol/L; Blood Urea Nitrogen 18 mg/dL (9-20); Calcium 8.5 mg/dL (8.4-10.2); Carbon Dioxide 23 mmol/L (22-30); Chloride 101 mmol/L (98-107); Glucose 100 mg/dL (74-99); Non-African American GFR(CKD) 81 (>60 ml/min/1.73 sqM); Potassium 4.4 mmol/L (3.5-5.1); Sodium 131 mmol/L (137-145)
--- NOTE | 2024-10-03 10:48 | P.PN ---
Subjective Progress Note Date: 10/03/24 Principal diagnosis: Open heart surgery. This is an 79-year-old male patient with a known history of coronary artery disease who was brought in today electively for an off-pump coronary artery bypass grafting x 3. He received a CAMPO to the LAD, saphenous vein graft to the first diagonal, saphenous vein graft/left radial artery to the PDA. He did undergo left atrial appendage clipping. Postoperative day #0. He is seen upon his return to the intensive care unit. He is currently on the mechanical ventilator and assist-control mode at a rate of 14, tidal volume 550, FiO2 60% and a PEEP of 5. Arterial blood gases on 100% FiO2 revealed a PaO2 of 280, pCO2 of 39 and a pH of 7.39. White count 14.8. Hemoglobin 9.5. Platelet count 201. Glucose 115. Chest x-ray revealed appropriate placement of the endotracheal tube, nasogastric tube and Magnolia-Kathi catheter. Left thoracotomy and mediastinal chest tubes in place. No evidence of pneumothorax. He is currently off the propofol. He remains on nitroglycerin drip at 5 mcg/min. Cardizem drip at 5 mg/h. Normal saline at 50 mL/h. Urine output is adequate. Cardiac output 5.7. Cardiac index 2.6. PA pressures 13/8. CVP 5. Sternal dressing is dry and intact. Heart hugger in place. Left radial site covered with Noam wrap. JUAN JOSE drain in place. Bilateral lower extremity Noam wraps in place. SCDs in place. He is initiated on DuoNeb inhalations. Heparin for DVT prophylaxis. The patient was seen today September 29, 2024 in follow-up. Postoperative day #1. He was extubated at approximately 5:30 last evening. He is currently sitting up in a chair at the bedside. Awake and alert in no acute distress. He is currently maintaining good O2 saturations in the 90s on 2 L/min per nasal cannula. He is afebrile. Hemodynamically stable. He remains on normal saline at 50 mL/h. Insulin drip at 1.5 units/h. He is working well with the incentive spirometer. Cardiac output 5.6. Cardiac index 2.5. PA pressure 13/8. CVP 3. Left and mediastinal chest tubes remain in place. Chest x-ray reveals postsurgical changes with blunting of the left costophrenic angle. White count 11.6. Hemoglobin 9.8. Platelets 222. Sodium 134. Potassium 3.9. Bicarb 25. BUN 14. Creatinine 0.71. Glucose 120. He continues to work well with the incentive spirometer. He remains on bronchodilators. Heparin for DVT pro phylaxis. The patient was seen today September 30, 2024 in follow-up. Postoperative day #2. He is currently resting comfortably in bed. Awake and alert in no acute distress. Chest tubes have been removed. He did develop atrial fibrillation with rapid ventricular response approximately 430 this morning. He has received amiodarone bolus and is currently on a amiodarone drip at 1 mg/h. He has normal saline at 40 mL/h. Insulin drip is on hold. Lets 208. Sodium 129. Potassium 4.3. Bicarb 24. BUN 16. Creatinine 0.85. Glucose 107. He remains on bronchodilators. Heparin for DVT prophylaxis. The patient is seen today October 01, 2024 in follow-up. Postoperative day #3. He is currently sitting up in a chair at the bedside. Awake and alert in no acute distress. Continue good O2 saturations in the 90s on 2 L/min per nasal cannula. He has been up ambulating with assistance. Chest x-ray reveals postsurgical changes with some airspace opacities. No significant change compared to previous. White count 12.6. Hemoglobin 9.4. Platelets 205. Sodium 129. Potassium 4.1. Bicarb 21. BUN 18. Creatinine 0.91. Glucose 113. He has been transitioned to oral amiodarone. Remains on heparin for DVT prophylaxis. Continued on bronchodilators. Working well with the incentive spirometer. Progress note dated October 02, 2024. 79-year-old male status post open heart surgery. He is seen today in room 360. He is on room air. No fluids. The patient is awake and alert. He denies any complaints at this time. White count 9.1, hemoglobin 8.7, hematocrit 26.2, platelet count 3-42,000. Sodium 131, potassium 4.2, chlorides 100, CO2 25, BUN 22, creatinine 0.92. Glucose 99. Chest x-ray shows some basilar atelectasis. Progress note dated October 03, 2024. This is an 79-year-old male who is seen in room 360. He is on room air. No fluids. The patient is status post CABG. Clinically, the patient is stable. He is awake and alert. He denies any difficulty, either with breathing, or chest discomfort. White count 12.3, hemoglobin 9.4, hematocrit 28.9, platelet count normal. Sodium 131, potassium 4.4, chlorides 101, CO2 23, BUN 18, creatinine 0.87. Objective - Vital Signs Vital signs: Vital Signs Temp 98 F 10/03/24 04:00 Pulse 84 10/03/24 09:00 Resp 18 10/03/24 04:00 BP 99/61 10/03/24 04:00 Pulse Ox 93 L 10/03/24 08:50 FiO2 45 09/28/24 17:00 Intake & Output 10/02/24 10/03/24 10/03/24 18:59 06:59 18:59 Intake Total 160 Output Total 800 Balance -640 Intake: Oral 160 Output: Urine 800 Other: Voiding Method Urinal Urinal # Voids 1 2 ABP, PAP, CO, CI - Last Documented Arterial Blood Pressure 108/52 Pulmonary Artery Pressure 8/3 Cardiac Output 5.6 Cardiac Index 2.5 - Exam No acute distress, oriented 3. HEENT examination is grossly unremarkable. Mucous membranes are moist. No oral lesions. Neck supple. Full range of motion. No adenopathy thyromegaly or neck vein distention. Cardiovascular examination reveals regular rhythm rate. S1-S2 normal. No S3 or S4. No discernible murmur noted. Lungs reveal mostly clear breath sounds. Minimal rhonchi. No wheezes or crackles. Breath sounds equal. Abdomen soft bowel sounds are heard. No masses or tenderness. Extremities are intact. No cyanosis clubbing or edema. Skin is without rash or lesion. Neurologic examination is brief but nonfocal. - Labs CBC & Chem 7: 10/03/24 09:01 10/03/24 09:01 Labs: Abnormal Lab Results - Last 24 Hours (Table) 10/02/24 10/02/24 10/03/24 Range/Units 16:30 20:27 06:08 WBC (3.8-10.6) k/uL RBC (4.30-5.90) m/uL Hgb (13.0-17.5) gm/dL Hct (39.0-53.0) % Sodium (137-145) mmol/L Glucose (74-99) mg/dL POC Glucose (mg/dL) 133 H 115 H 115 H (70-110) mg/dL 10/03/24 10/03/24 Range/Units 09:01 09:01 WBC 12.3 H (3.8-10.6) k/uL RBC 3.02 L (4.30-5.90) m/uL Hgb 9.4 L (13.0-17.5) gm/dL Hct 28.9 L (39.0-53.0) % Sodium 131 L (137-145) mmol/L Glucose 100 H (74-99) mg/dL POC Glucose (mg/dL) (70-110) mg/dL Assessment and Plan Assessment: Coronary artery disease status post coronary artery bypass grafting x 3, off- pump, received a CAMPO to the LAD, saphenous vein graft to the first diagonal, h ybrid conduit saphenous vein/left radial arterial graft to the PDA. Left atrial appendage clipping. Postoperative day #5. Mechanical ventilator management, expected outcome of surgery. Atrial fibrillation, not an unexpected outcome of surgery. History of hypertension. History of rheumatoid arthritis. Remote history of smoking, quit over 30 years ago. Plan: Plan dated October 02, 2024. The patient is seen today in room 360. He is on room air. The patient is not receiving any IV fluids. He continues to use his incentive spirometer, every hour. We also recommend deep breathing, coughing, clearing of secretions. Labs, x-rays, and all medications are reviewed. We will continue to follow make recommendations along the way. Cardiothoracic surgery is working on his discharge. Dictation was produced using [employer] software. Please excuse any grammatical, word or spelling errors. Plan dated October 03, 2024. The patient is doing well. The patient will likely be discharged sometime later today. He is on room air. No fluids. Labs, x-rays, medications are reviewed. The patient will follow-up in the office, as a routine. No additional recommendations are made. Prognosis is thought to be generally good. Labs, x- rays, medications are reviewed. Dictation was produced using [employer] software. Please excuse any grammatical, word or spelling errors. Time with Patient: Less than 30
[2024-10-03 10:49] VITALS: BP 122/71; PULSE 87; TEMP 99.3
[2024-10-03] MEDS: APIXABAN 5 MG TAB PO SCH (10:55)
--- NOTE | 2024-10-03 13:11 | P.PN ---
Subjective Progress Note Date: 10/03/24 Subjective: Patient seen and examined at bedside. No acute events overnight. Pertinent positives and negatives as discussed above, a complete review of systems was performed and all other systems are negative. Vitals Signs Reviewed. General: Nontoxic, no distress, appears at stated age Derm: Warm, dry, dressing clean, dry, intact Head: Atraumatic, normocephalic, symmetric Eyes: EOMI, no lid lag, anicteric sclera Mouth: No lip lesion, mucus membranes moist Cardiovascular: S1S2 reg, no murmur Lungs: CTA bilateral, no rhonchi, no rales, no accessory muscle use Abdominal: Soft, nontender to palpation, no guarding, no appreciable organomegaly Ext: No gross muscle atrophy, no edema, no contractures Neuro: CN II-XI grossly intact, no focal neuro deficits Psych: Alert, oriented, appropriate affect Data Reviewed Today: Pertinent Labs: WBC 12.3, hemoglobin 9.4, sodium 131, creatinine 0.87, blood sugars range between 100-1 15 Imaging: Chest x-ray independently interpreted, shows postoperative changes, similar to yesterday Assessment and Plan: Active: CAD status post CABG Acute blood loss anemia, anticipated outcome of surgery Leukocytosis, anticipated outcome of surgery, resolved Paroxysmal atrial fibrillation Hypertension Dyslipidemia Mild hypovolemic hyponatremia Non-anion gap metabolic acidosis, resolved -Cardiothoracic surgery note reviewed, being discharged today -Also on midodrine 5 twice daily, holding antihypertensives, amiodarone 400 twice daily, aspirin 325 daily, atorvastatin 40 daily, Plavix 75 daily, metoprolol 12.5 twice daily -On Protonix 40 daily for GI prophylaxis, and Toradol 15 IV every 6 hours for pain Hyperglycemia Prediabetes -A1c 5.9 -Sliding scale insulin, ACHS, monitor for hypoglycemia Rheumatoid arthritis -Resume methotrexate outpatient Patient is medically optimized for discharge Thank you for allowing us to participate in the care of this pleasant patient. Do not hesitate to contact us with questions. Someone can be reached from the [facility] hospitalist group all hours of the day at [phone] or via perfect serve. Objective - Vital Signs Vital signs: Vital Signs Temp 99.3 F 10/03/24 08:25 Pulse 84 10/03/24 09:00 Resp 18 10/03/24 08:25 BP 122/71 11/23/24 08:25 Pulse Ox 93 L 10/03/24 08:50 FiO2 45 09/28/24 17:00 Intake & Output 10/02/24 10/03/24 10/03/24 18:59 06:59 18:59 Intake Total 160 Output Total 800 Balance -640 Intake: Oral 160 Output: Urine 800 Other: Voiding Method Urinal Urinal Urinal # Voids 1 2 ABP, PAP, CO, CI - Last Documented Arterial Blood Pressure 108/52 Pulmonary Artery Pressure 8/3 Cardiac Output 5.6 Cardiac Index 2.5 - Labs CBC & Chem 7: 10/03/24 09:01 10/03/24 09:01 Labs: Abnormal Lab Results - Last 24 Hours (Table) 10/02/24 10/02/24 10/03/24 Range/Units 16:30 20:27 06:08 WBC (3.8-10.6) k/uL RBC (4.30-5.90) m/uL Hgb (13.0-17.5) gm/dL Hct (39.0-53.0) % Sodium (137-145) mmol/L Glucose (74-99) mg/dL POC Glucose (mg/dL) 133 H 115 H 115 H (70-110) mg/dL 10/03/24 10/03/24 Range/Units 09:01 09:01 WBC 12.3 H (3.8-10.6) k/uL RBC 3.02 L (4.30-5.90) m/uL Hgb 9.4 L (13.0-17.5) gm/dL Hct 28.9 L (39.0-53.0) % Sodium 131 L (137-145) mmol/L Glucose 100 H (74-99) mg/dL POC Glucose (mg/dL) (70-110) mg/dL
[2024-10-04] MEDS ORDERED: ASPIRIN 81 MG PO SCH (09:00)
== END 2024-10-03 11:30 | disposition home health service (06) | DRG 236 ==
LOC: 2ORMAIN 05:34 → 2SICU 12:11 → 3SCARD 10-01 12:37
PROVIDERS: ADMIT Thoracic Surgery (Cardiothoracic Vascular Surgery); ATTEND Thoracic Surgery (Cardiothoracic Vascular Surgery)
PROC: 03BC4ZZ Excision of Left Radial Artery, Percutaneous Endoscopic Approach (ICD-10-PCS; 2024-09-28)
PROC: B24BZZ4 Ultrasonography of Heart with Aorta, Transesophageal (ICD-10-PCS; 2024-09-28)
PROC: 02L70CK Occlusion of Left Atrial Appendage with Extraluminal Device, Open Approach (ICD-10-PCS; 2024-09-28)
PROC: 30233J1 Transfusion of Nonautologous Serum Albumin into Peripheral Vein, Percutaneous Approach (ICD-10-PCS; 2024-09-28)
PROC: 02100Z9 Bypass Coronary Artery, One Artery from Left Internal Mammary, Open Approach (ICD-10-PCS; principal; 2024-09-28 08:00)
PROC: 02100AW Bypass Coronary Artery, One Artery from Aorta with Autologous Arterial Tissue, Open Approach (ICD-10-PCS; 2024-09-28 08:00)
PROC: 021109W Bypass Coronary Artery, Two Arteries from Aorta with Autologous Venous Tissue, Open Approach (ICD-10-PCS; 2024-09-28 08:00)
PROC: 06BQ4ZZ Excision of Left Saphenous Vein, Percutaneous Endoscopic Approach (ICD-10-PCS; 2024-09-28 08:00)
DX: I25.10 Atherosclerotic heart disease of native coronary artery without angina pectoris (principal); E87.20 Acidosis, unspecified; E87.1 Hypo-osmolality and hyponatremia; D62 Acute posthemorrhagic anemia; I48.0 Paroxysmal atrial fibrillation; M06.9 Rheumatoid arthritis, unspecified; I71.21 Aneurysm of the ascending aorta, without rupture; E86.1 Hypovolemia; I10 Essential (primary) hypertension; E78.5 Hyperlipidemia, unspecified; H91.90 Unspecified hearing loss, unspecified ear; I08.1 Rheumatic disorders of both mitral and tricuspid valves; D72.828 Other elevated white blood cell count; R73.03 Prediabetes; R73.9 Hyperglycemia, unspecified; M19.90 Unspecified osteoarthritis, unspecified site; Z96.652 Presence of left artificial knee joint; Z79.82 Long term (current) use of aspirin; Z87.891 Personal history of nicotine dependence; Z79.631 Long term (current) use of antimetabolite agent; Z79.899 Other long term (current) drug therapy; Z82.49 Family history of ischemic heart disease and other diseases of the circulatory system
CPT/HCPCS: 71045; 71046; 80048; 80053; 82330; 82805; 83036; 83735; 85025; 85027; 85610; 85730; 86850; 86891; 86900; 86901; 86920; 94640; 94760